=== PATIENT | male | born 1950 | race Caucasian/White ===

== ENCOUNTER 2024-02-02 09:02 | Outpatient (RCR) | payer MEDICARE, BC, SELFPAY ==
[2024-01-23 08:25] VITALS: BP 133/67
[2024-01-23 09:21] LABS: ALT (SGPT) 31 U/L (0-50); AST (SGOT) 25 U/L (17-59); Albumin 3.7 g/dl (3.5-5.0); Alkaline Phosphatase 64 U/L (38-126); Blood Urea Nitrogen 14 mg/dl (9-20); Carbon Dioxide 24 mmol/L (22-30); Chloride 105 mmol/L (98-107); Glucose 116 mg/dl (70-99); Hematocrit 24.4 % (39.0-52.0); Hemoglobin 8.2 g/dL (13.0-18.0); Mean Corp Hgb Conc. 33.6 g/dL (33.0-37.0); Mean Corpuscular Hgb 29.8 pg (27.0-31.0); Mean Corpuscular Volume 88.7 fL (80.0-94.0); Potassium 3.9 mmol/L (3.5-5.1); Red Blood Cell Count 2.75 10^6/uL (4.70-6.10); Sodium 143 mmol/L (135-145); Total Bilirubin 0.7 mg/dl (0.2-1.3); eGFR > 60.00
[2024-01-23 09:23] LABS: Band Neutrophils 2 % (0-3); Lymphocytes 32 % (20-51); Metamyelocytes 2 % (-); Platelets Checked Yes; Segmented Neutrophils 64 % (42-75)
[2024-01-23 09:24] LABS: Anisocytosis 1+; Hypochromasia 1+; Normal RBC Morphology No; Ovalocytes 1+; Polychromasia 1+; Total Cells Counted 100
[2024-01-23 09:27] LABS: Absolute Neutrophils -Man Diff 0.9 10^3/uL (1.4-6.5); Platelet Count 25 10^3/uL (130-400); White Blood Cell Count 1.4 10^3/uL (4.8-10.8)
[2024-01-23] MEDS: DECADRON 50.8 MG IV (10:52)
[2024-01-23] MEDS: ALOXI 5 MG IV (10:53)
[2024-01-23] MEDS: VIDAZA 100 MG IV (11:34)
[2024-01-23 12:15] VITALS: BP 123/74
[2024-01-24 09:15] VITALS: BP 138/61
[2024-01-24] MEDS: VIDAZA 100 MG IV (09:51)
[2024-01-25 09:05] VITALS: BP 120/53
[2024-01-25] MEDS: VIDAZA 100 MG IV (09:34)
[2024-01-26 09:05] VITALS: BP 127/53
[2024-01-26] MEDS: VIDAZA 100 MG IV (09:36)
[2024-01-27] MEDS: VIDAZA 100 MG IV (09:32)
[2024-01-27 10:02] VITALS: BP 135/67
[2024-01-30] VITALS (9 sets, daily range): BP systolic 110–137; BP diastolic 48–71
--- NOTE | 2024-01-30 09:20 | PTCARENOTE ---
pt's vs on arrival at approximately 0910 were: 97.4, 88, 18, 120/56, at 0920 pt c/o dizziness and was placed in a reclined position. Vs were: 103/53, hr 81, rr 16, pox 100% on RA. Pt stating 'I feel a little better, but I don't feel like I could
run a marathon.' CBC drawn, awaiting lab results and Eri COLD WORKING SUPERVISOR in to see patient at present time, will await lab results. Call woods in place, pt instructed not to get up by himself.
[2024-01-30 09:59] LABS: Hematocrit 22.5 % (39.0-52.0); Hemoglobin 7.5 g/dL (13.0-18.0); Mean Corp Hgb Conc. 33.3 g/dL (33.0-37.0); Mean Corpuscular Hgb 29.9 pg (27.0-31.0); Mean Corpuscular Volume 89.6 fL (80.0-94.0); Red Blood Cell Count 2.51 10^6/uL (4.70-6.10); Red Cell Dist. Width 16.5 % (11.5-14.5)
[2024-01-30 10:28] LABS: % Lymphocytes 22.8 % (20.5-51.1); % Monocytes 6.9 % (1.7-9.3); % Neutrophils 69.3 % (42.2-75.2); Absolute Lymphocytes 0.2 10^3/uL (1.2-3.4); Absolute Monocytes 0.1 10^3/uL (0.1-0.6); Absolute Neutrophils 0.7 10^3/uL (1.4-6.5); Mean Platelet Volume 11.8 fL (7.4-10.4); Platelet Count 21 10^3/uL (130-400)
[2024-01-30] MEDS: VIDAZA 100 MG IV (10:55)
--- NOTE | 2024-01-30 11:40 | PTCARENOTE ---
pt offers no further complaints of dizziness at present, able to ambulate to bathroom with walker without difficulty. vs: 97.4, 59, 16, 119/57. 2 units prbc's ordered for today, pt updated on plan of care, agreeable, consent obtained by Patricia
ENTERTAINMENT DIRECTOR, will follow.
--- NOTE | 2024-01-30 11:55 | PTCARENOTE ---
Saw patient today in [facility] at the request of NAVYA Henriquez. Patient here for vidaza treatment for MDS. On arrival reports dizziness and worsening fatigue. Hgb 7.5 today. Hypotensive. Had stopped midodrine due to reports of HTN. Only taking
daily. Assessment discussed with treatment oncology provider and decided to transfuse 2u PRBC. I obtained consent. Patient has had previous transfusions. No questions asked. Advised to continue to monitor BP. Concerns over hypotension
discussed. Educated to change positions slowly given hypotension. Will remain available as needed. Patient was in agreement to the above.
[2024-01-31 09:15] VITALS: BP 134/55; BP 137/71
[2024-01-31] MEDS: VIDAZA 100 MG IV (09:36)
[2024-02-02 10:11] LABS: Hematocrit 29.3 % (39.0-52.0); Hemoglobin 9.7 g/dL (13.0-18.0); Mean Corp Hgb Conc. 33.1 g/dL (33.0-37.0); Mean Corpuscular Hgb 29.8 pg (27.0-31.0); Mean Corpuscular Volume 89.9 fL (80.0-94.0); Red Blood Cell Count 3.26 10^6/uL (4.70-6.10); Red Cell Dist. Width 16.4 % (11.5-14.5)
[2024-02-02 10:13] LABS: ALT (SGPT) 28 U/L (0-50); AST (SGOT) 23 U/L (17-59); Alkaline Phosphatase 87 U/L (38-126); Blood Urea Nitrogen 22 mg/dl (9-20); Calcium 9.1 mg/dl (8.4-10.2); Carbon Dioxide 29 mmol/L (22-30); Chloride 102 mmol/L (98-107); Glucose 106 mg/dl (70-99); Potassium 4.2 mmol/L (3.5-5.1); Sodium 142 mmol/L (135-145); Total Bilirubin 0.7 mg/dl (0.2-1.3); eGFR > 60.00
[2024-02-02 11:12] LABS: Platelet Count 20 10^3/uL (130-400); White Blood Cell Count 0.7 10^3/uL (4.8-10.8)
[2024-02-02 11:15] LABS: Absolute Neutrophils 0.4 10^3/uL (1.4-6.5)
[2024-02-02 11:16] LABS: % Lymphocytes 36.8 % (20.5-51.1); % Monocytes 10.3 % (1.7-9.3); % Neutrophils 52.9 % (42.2-75.2); Absolute Lymphocytes 0.3 10^3/uL (1.2-3.4); Absolute Monocytes 0.1 10^3/uL (0.1-0.6); Nucleated Red Blood Cells % 0 % (-)
== END 2024-02-11 23:59 | disposition home or self-care (01) ==
LOC: OID 09:02
PROVIDERS: ATTENDING PHYSICIAN Internal Medicine Hematology & Oncology; FAMILY PHYSICIAN Family Medicine
DX: Z51.11 Encounter for antineoplastic chemotherapy (principal); C92.00 Acute myeloblastic leukemia, not having achieved remission
CPT/HCPCS: 36415; 36430; 80053; 85025; 86850; 86900; 86901; 86920; 96367; 96375; 96413; J2469; J9025; P9058

== ENCOUNTER 2024-02-04 22:51 | Emergency (ER) | payer MEDICARE, BC, SELFPAY ==
[2024-02-04 22:57] VITALS: BP 155/91
[2024-02-04 23:00] VITALS: BP 142/79
--- NOTE | 2024-02-04 23:12 | ED.GENMED ---
History of Present Illness
General
Chief Complaint: Fainting Sensation
Source: patient
Exam Limitations: none
Time Seen by Provider: 02/04/24 23:02
History of Present Illness
History of Present Illness:
See MDM
Past History
Past History
ED Past Medical History: Hypercholesterolemia and Other (MDS)
ED Past Surgical History: Other (Inguinal hernia repair)
Social History
Tobacco: Non-smoker
Alcohol: None
Phy Exam
Physical Exam
Physical Exam:
See MDM
Course
Orders/Labs/Results
Orders:
Orders
02/04/24 22:58
Electrocardiogram (*1) Urgent
Reason for Study: Syncope
02/04/24 22:59
EKG- Treatment ONCE
02/04/24 23:10
Complete Blood Count/With Diff Urgent
Comprehensive Metabolic Panel Urgent
02/04/24 23:12
0.9% Sodium Chloride 1000 ml [Nss] 1,000 ml IV BOLUS
Abnormal Lab Results
02/04/24
23:10
WBC 0.3 L* 10^3/uL
(4.8-10.8)
RBC 3.05 L 10^6/uL
(4.70-6.10)
Hgb 8.8 L g/dL
(13.0-18.0)
Hct 26.9 L %
(39.0-52.0)
MCHC 32.7 L g/dL
(33.0-37.0)
RDW 15.4 H %
(11.5-14.5)
Plt Count 17 L* 10^3/uL
(130-400)
Absolute Neuts (auto) 0.1 L* 10^3/uL
(1.4-6.5)
Absolute Lymphs (auto) 0.1 L 10^3/uL
(1.2-3.4)
Neutrophils % 34.5 L %
(42.2-75.2)
Monocytes % 17.2 H %
(1.7-9.3)
Glucose 147 H mg/dl
(70-99)
Total Protein 5.7 L g/dl
(6.3-8.2)
02/04/24 23:10
02/04/24 23:10
Vital Signs
Initial and Last Documented VS:
Initial Vital Signs
BP
155/91
02/04/24 22:57
Last Documented Vital Signs
Temp Pulse Resp BP Pulse Ox
98.1 F 99 27 153/81 99
02/04/24 23:21 02/05/24 00:15 02/05/24 00:15 02/05/24 00:00 02/05/24 00:15
MDM/Problems Addressed
Differential Diagnosis Includes:
HPI and MDM Narrative:
73-year-old male presenting with a syncopal event. Patient was on the toilet and he stood up quickly and felt lightheaded. He then sat down. When he stood up again, he passed out. Patient states he wanted to get checked out because he had a
similar episode several months back where he fell and hit his head and developed subarachnoid hemorrhage requiring admission and rehab. Patient states he wants to make sure that this does not happen again. Denies head trauma this time. Patient
has been constipated so he took MiraLAX for a few days. Things seem to improve. However, he has not had a bowel movement in the past 3 days so he started to take MiraLAX again.
On exam, patient is sitting in bed comfortably. There is no significant abdominal tenderness noted. He is unconcerned with significant constipation. He is more concerned about syncope. Patient does appear dry. Will give IV fluids.
Patient also concerned about his blood pressure. His systolic blood pressure has been increasing to the 170s. Patient was placed on midodrine 3 times daily. Patient has decreased this to twice daily due to the concern for the increasing elevated
blood pressure
Physical exam
General: Well appearing and non-toxic
HEENT: protecting airway. Dry mucous membranes
Neck: appears supple
CV: No evidence of cyanosis. Regular rate and rhythm
Resp: No accessory muscle use
Abd: Non-distended. No significant tenderness
Extremities: No deformities
Neuro: alert
Psych: Normal affect
Skin: Intact
Problems Addressed including Acute and Chronic Conditions affecting care:
1. Syncope
Acuity: acute
Prognosis: stable
Details: Likely in the setting of orthostasis from recent relaxants and diarrhea. Will obtain EKG and provide IV fluids
Updates
On reassessment after fluids, patient appears to be doing better. Will ambulate. We discussed his lab abnormalities but they are not far from baseline
Patient ambulated without difficulty and feels comfortable going home
Differential Diagnosis (but not limited to): Orthostasis, cardiac arrhythmia, dehydration, constipation
Testing considered: CT head but denies head
Drug therapy (if applicable): OTC meds, please see d/c instruction regarding Rx drugs
Amount and/or Complexity of Data Reviewed
Clinical info obtained from: Patient
External data reviewed: N/A
Labs I independently reviewed (but not limited to): Neutropenic, thrombocytopenic, anemic
Radiology: N/A
Pulse Ox: not hypoxic
EKG independently reviewed: Sinus rhythm, PACs, no STEMI
Dot Etcher Apprentice: Sinus rhythm
Critical Care: N/A
Risk of Complication:
Social Determinants of health: Good social support
Discussed with other providers: N/A
Escalation of Care includes Admit/Obs: After being observed in the Emergency Department, pt stable for discharge.
Occasional wrong word or 'sound a like' substitutions may have occurred due to the inherent limitations of voice recognition software. Read the chart carefully and recognize, using context, where substitutions have occurred.
*Critical Care Note
Total Time (30-74mins, 75-104mins- exclusive of procedures): Not Applicable
ED Attending Note
-
Portions of this chart may have been created with voice recognition software.� Occasional wrong word or��sound alike� substitutions may have occurred due to the inherent limitations of voice recognition software.
Discharge Plan
Departure
Patient Disposition: Home (Routine Discharge)
Date of Disposition: 02/05/24
Time of Disposition: 01:18
Patient with high blood pressure during this ER visit?: No
Discharge Problem:
Orthostatic hypotension
Instructions: Orthostatic hypotension
Prescriptions:
No Action
ondansetron HCl [Zofran] 8 mg Tablet
8 mg PO .Q6 PRN (Reason: nausea)
venetoclax 100 mg Tablet
400 mg PO DAILY
polyethylene glycol 3350 17 gram Powder In Packet
17 g PO DAILY PRN (Reason: constipation)
acyclovir 400 mg Tablet
400 mg PO BID
famotidine 20 mg Tablet
20 mg PO Q12H
zolpidem 5 mg Tablet
5 mg PO HS PRN (Reason: insomnia)
Neulasta 6 mg/0.6 mL Syringe
6 mg SC PRN PRN (Reason: Cancer)
Rx Instructions:
no route given
sodium chloride 0.65 % Aerosol,Burdine
1 spray INTRANASAL TID PRN (Reason: nasal congestion)
Lactobacillus acidophilus
1 cap PO DAILY
posaconazole [Noxafil] 100 mg Tablet,Delayed Release (Dr/Ec)
300 mg PO DAILY
acetaminophen 325 mg Tablet
650 mg PO Q6HPRN PRN (Reason: mild pain) 30 Days Qty: 100 0RF
cyanocobalamin (vitamin B-12) 1,000 mcg Tablet
1,000 mcg PO DAILY 30 Days Qty: 30 0RF
atorvastatin 80 mg Tablet
80 mg PO DAILY Qty: 0 0RF
sennosides-docusate sodium [Senna-S] 8.6-50 mg Tablet
1 caplet PO BID Qty: 0 0RF
allopurinol 300 mg Tablet
300 mg PO DAILY Qty: 0 0RF
levofloxacin 500 mg Tablet
500 mg PO DAILY Qty: 0 0RF
ergocalciferol (vitamin D2) 1,250 mcg (50,000 unit) capsule
1,250 mcg PO QWEEK 4 Days Qty: 1 0RF
Referrals:
Vahid Kiser MD [Family Provider] -
Activity Restrictions/Additional Instructions:
Please return for any worsening symptoms.
You may return at any time if you have further concerns.
Please follow up with your doctor at the first available appointment, preferably this week.
Thank you for choosing [facility].
Interventions
Interventions:
*Risk Screen - Suicide Last Done: 02/04/24 23:21
*General Assessment Last Done: 02/04/24 23:21
*Neglect/Abuse Screening Last Done: 02/04/24 23:21
ED- Fall Risk Assessment Last Done: 02/04/24 23:15
*ED COVID-19 Vaccine History Last Done: 02/04/24 23:21
ED- Cardiac Assessment Last Done: 02/04/24 23:15
ED- Neurological Assessment Last Done: 02/04/24 23:15
Discharge Date and Time
Print Language: LATVIAN
[2024-02-04 23:21] VITALS: BP 142/79
[2024-02-04] MEDS: NSS 1000 IV (23:29)
[2024-02-04 23:51] LABS: ALT (SGPT) 23 U/L (0-50); AST (SGOT) 23 U/L (17-59); Albumin 3.7 g/dl (3.5-5.0); Alkaline Phosphatase 65 U/L (38-126); Blood Urea Nitrogen 20 mg/dl (9-20); Calcium 8.8 mg/dl (8.4-10.2); Carbon Dioxide 28 mmol/L (22-30); Chloride 101 mmol/L (98-107); Glucose 147 mg/dl (70-99); Sodium 137 mmol/L (135-145); Total Bilirubin 1.2 mg/dl (0.2-1.3); Total Protein 5.7 g/dl (6.3-8.2); eGFR > 60.00
[2024-02-04 23:55] LABS: % Lymphocytes 48.3 % (20.5-51.1); % Monocytes 17.2 % (1.7-9.3); % Neutrophils 34.5 % (42.2-75.2); Absolute Lymphocytes 0.1 10^3/uL (1.2-3.4); Absolute Monocytes 0.1 10^3/uL (0.1-0.6); Absolute Neutrophils 0.1 10^3/uL (1.4-6.5); Hematocrit 26.9 % (39.0-52.0); Hemoglobin 8.8 g/dL (13.0-18.0); Mean Corp Hgb Conc. 32.7 g/dL (33.0-37.0); Mean Corpuscular Hgb 28.9 pg (27.0-31.0); Mean Corpuscular Volume 88.2 fL (80.0-94.0); Nucleated Red Blood Cells % 0 % (-); Platelet Count 17 10^3/uL (130-400); Red Blood Cell Count 3.05 10^6/uL (4.70-6.10); Red Cell Dist. Width 15.4 % (11.5-14.5); White Blood Cell Count 0.3 10^3/uL (4.8-10.8)
[2024-02-05] VITALS: BP 153/81
[2024-02-05 01:00] VITALS: BP 154/78
== END 2024-02-05 01:38 | disposition home or self-care (01) ==
LOC: EMR 22:51
PROVIDERS: EMERGENCY PHYSICIAN Student in an Organized Health Care Education/Training Program; FAMILY PHYSICIAN Family Medicine
DX: I95.1 Orthostatic hypotension (principal)
CPT/HCPCS: 99284; 80053; 85025; 93005

== ENCOUNTER → 2024-02-16 10:21 | Outpatient (REF) | payer MEDICARE, BC, SELFPAY ==
[2024-02-16 11:15] VITALS: BP 117/69; BP_SYST 83
[2024-02-16 12:09] LABS: Hemoglobin 8.1 g/dL (13.0-18.0); Red Blood Cell Count 2.77 10^6/uL (4.70-6.10)
[2024-02-16 12:10] LABS: Hematocrit 24.1 % (39.0-52.0); Mean Corp Hgb Conc. 33.6 g/dL (33.0-37.0); Mean Corpuscular Hgb 29.2 pg (27.0-31.0); Red Cell Dist. Width 15.3 % (11.5-14.5)
[2024-02-16 12:13] LABS: Platelet Count 18 10^3/uL (130-400); White Blood Cell Count 0.2 10^3/uL (4.8-10.8)
[2024-02-16 12:17] LABS: INR 1.07; PT 14.4 Sec (11.4-14.6)
[2024-02-16 12:43] LABS: % Lymphocytes 73.7 % (20.5-51.1); % Monocytes 5.3 % (1.7-9.3)
[2024-02-16 12:44] LABS: Absolute Lymphocytes 0.1 10^3/uL (1.2-3.4)
[2024-02-16 12:45] LABS: Nucleated Red Blood Cells % 0.03 % (-)
== END ==
LOC: RADI 10:21
PROVIDERS: ATTENDING PHYSICIAN Internal Medicine Hematology & Oncology; FAMILY PHYSICIAN Family Medicine; REFERRING PHYSICIAN Physician Assistant
DX: C92.00 Acute myeloblastic leukemia, not having achieved remission (principal); D61.818 Other pancytopenia; D68.8 Other specified coagulation defects
CPT/HCPCS: 88305; 88311; 88312; 36415; 38222; 77012; 85025; 85610; 88313

== ENCOUNTER → 2024-02-21 13:37 | Outpatient (REF) | payer MEDICARE, BC, SELFPAY | LOC: HWLAB 13:37 | PROVIDERS: ATTENDING PHYSICIAN Internal Medicine Hematology & Oncology; FAMILY PHYSICIAN Family Medicine | DX: C92.00 Acute myeloblastic leukemia, not having achieved remission (principal) | CPT/HCPCS: 36415; 80053; 85025; 86850; 86900; 86901; 86920 ==

== ENCOUNTER → 2024-02-28 12:51 | Outpatient (REF) | payer MEDICARE, BC, SELFPAY ==
[2024-02-28 16:40] LABS: ALT (SGPT) 15 U/L (0-50); AST (SGOT) 19 U/L (17-59); Albumin 3.6 g/dl (3.5-5.0); Alkaline Phosphatase 57 U/L (38-126); Blood Urea Nitrogen 24 mg/dl (9-20); Calcium 8.8 mg/dl (8.4-10.2); Carbon Dioxide 29 mmol/L (22-30); Chloride 104 mmol/L (98-107); Glucose 95 mg/dl (70-99); Potassium 4.5 mmol/L (3.5-5.1); Sodium 138 mmol/L (135-145); Total Bilirubin 0.6 mg/dl (0.2-1.3); Total Protein 5.6 g/dl (6.3-8.2); eGFR > 60.00
[2024-02-28 17:00] LABS: % Lymphocytes 45.1 % (20.5-51.1); % Monocytes 13.7 % (1.7-9.3); % Neutrophils 41.2 % (42.2-75.2); Absolute Lymphocytes 0.2 10^3/uL (1.2-3.4); Absolute Monocytes 0.1 10^3/uL (0.1-0.6); Absolute Neutrophils 0.2 10^3/uL (1.4-6.5); Hematocrit 25.6 % (39.0-52.0); Hemoglobin 8.5 g/dL (13.0-18.0); Mean Corp Hgb Conc. 33.2 g/dL (33.0-37.0); Mean Corpuscular Hgb 29.3 pg (27.0-31.0); Mean Corpuscular Volume 88.3 fL (80.0-94.0); Nucleated Red Blood Cells % 5.9 % (-); Platelet Count 18 10^3/uL (130-400); Red Cell Dist. Width 14.6 % (11.5-14.5); White Blood Cell Count 0.5 10^3/uL (4.8-10.8)
== END ==
LOC: HWLAB 12:51
PROVIDERS: ATTENDING PHYSICIAN Internal Medicine Hematology & Oncology
DX: C92.00 Acute myeloblastic leukemia, not having achieved remission (principal)
CPT/HCPCS: 36415; 80053; 85025; 86850; 86900; 86901

== ENCOUNTER 2024-03-06 07:44 | Outpatient (RCR) | payer MEDICARE, BC, SELFPAY ==
[2024-02-13 10:36] LABS: % Lymphocytes 47.1 % (20.5-51.1); % Monocytes 5.9 % (1.7-9.3); Absolute Lymphocytes 0.2 10^3/uL (1.2-3.4); Absolute Neutrophils 0.2 10^3/uL (1.4-6.5); Hematocrit 20.8 % (39.0-52.0); Hemoglobin 6.9 g/dL (13.0-18.0); Mean Corp Hgb Conc. 33.2 g/dL (33.0-37.0); Mean Corpuscular Hgb 29.6 pg (27.0-31.0); Mean Corpuscular Volume 89.3 fL (80.0-94.0); Mean Platelet Volume 8.7 fL (7.4-10.4); Nucleated Red Blood Cells % 8.8 % (-); Platelet Count 20 10^3/uL (130-400); Red Blood Cell Count 2.33 10^6/uL (4.70-6.10); Red Cell Dist. Width 15.3 % (11.5-14.5); White Blood Cell Count 0.3 10^3/uL (4.8-10.8)
[2024-02-14] VITALS (7 sets, daily range): BP systolic 96–120; BP diastolic 41–53
[2024-02-21 16:45] LABS: ALT (SGPT) 14 U/L (0-50); AST (SGOT) 18 U/L (17-59); Albumin 3.5 g/dl (3.5-5.0); Alkaline Phosphatase 84 U/L (38-126); Blood Urea Nitrogen 19 mg/dl (9-20); Calcium 8.7 mg/dl (8.4-10.2); Carbon Dioxide 29 mmol/L (22-30); Chloride 105 mmol/L (98-107); Glucose 109 mg/dl (70-99); Sodium 140 mmol/L (135-145); Total Bilirubin 0.5 mg/dl (0.2-1.3); Total Protein 5.4 g/dl (6.3-8.2); eGFR > 60.00
[2024-02-21 17:10] LABS: Hemoglobin 7.1 g/dL (13.0-18.0); Mean Corp Hgb Conc. 32.3 g/dL (33.0-37.0); Mean Corpuscular Hgb 29.2 pg (27.0-31.0); Mean Corpuscular Volume 90.5 fL (80.0-94.0); Platelet Count 23 10^3/uL (130-400); Red Blood Cell Count 2.43 10^6/uL (4.70-6.10); Red Cell Dist. Width 15.2 % (11.5-14.5); White Blood Cell Count 0.2 10^3/uL (4.8-10.8)
[2024-02-21 18:07] LABS: % Lymphocytes 68.2 % (20.5-51.1); % Monocytes 9.1 % (1.7-9.3); % Neutrophils 22.7 % (42.2-75.2); Absolute Lymphocytes 0.2 10^3/uL (1.2-3.4); Absolute Neutrophils 0.1 10^3/uL (1.4-6.5); Nucleated Red Blood Cells % 13.6 % (-)
[2024-02-23] VITALS (8 sets, daily range): BP systolic 102–118; BP diastolic 51–56
[2024-03-02 13:15] VITALS: BP 135/59
[2024-03-02 14:27] LABS: % Monocytes 13.3 % (1.7-9.3); % Neutrophils 41.7 % (42.2-75.2); Absolute Lymphocytes 0.3 10^3/uL (1.2-3.4); Absolute Monocytes 0.1 10^3/uL (0.1-0.6); Absolute Neutrophils 0.3 10^3/uL (1.4-6.5); Hematocrit 23.3 % (39.0-52.0); Hemoglobin 7.7 g/dL (13.0-18.0); Mean Corpuscular Hgb 28.4 pg (27.0-31.0); Nucleated Red Blood Cells % 0 % (-); Platelet Count 16 10^3/uL (130-400); Red Blood Cell Count 2.71 10^6/uL (4.70-6.10); Red Cell Dist. Width 14.7 % (11.5-14.5); White Blood Cell Count 0.6 10^3/uL (4.8-10.8)
[2024-03-02] MEDS: GRANIX 480 MCG SC (14:46)
[2024-03-05 13:00] VITALS: BP 120/62
[2024-03-05 14:26] LABS: % Immature Granulocytes 1.3 % (0-0.5); % Lymphocytes 30.7 % (20.5-51.1); % Monocytes 13.3 % (1.7-9.3); % Neutrophils 54.7 % (42.2-75.2); Absolute Lymphocytes 0.2 10^3/uL (1.2-3.4); Absolute Monocytes 0.1 10^3/uL (0.1-0.6); Absolute Neutrophils 0.4 10^3/uL (1.4-6.5); Hematocrit 21.1 % (39.0-52.0); Hemoglobin 7.3 g/dL (13.0-18.0); Mean Corp Hgb Conc. 34.6 g/dL (33.0-37.0); Mean Corpuscular Hgb 29.8 pg (27.0-31.0); Mean Corpuscular Volume 86.1 fL (80.0-94.0); Nucleated Red Blood Cells % 0 % (-); Platelet Count 15 10^3/uL (130-400); Red Blood Cell Count 2.45 10^6/uL (4.70-6.10); Red Cell Dist. Width 14.9 % (11.5-14.5); White Blood Cell Count 0.8 10^3/uL (4.8-10.8)
[2024-03-05] MEDS: GRANIX 480 MCG SC (14:50)
[2024-03-06] VITALS (7 sets, daily range): BP systolic 105–127; BP diastolic 50–53
[2024-03-06 08:57] LABS: Hematocrit 18.5 % (39.0-52.0); Hemoglobin 6.5 g/dL (13.0-18.0); Mean Corp Hgb Conc. 35.1 g/dL (33.0-37.0); Mean Corpuscular Hgb 30.1 pg (27.0-31.0); Mean Corpuscular Volume 85.6 fL (80.0-94.0); Platelet Count 14 10^3/uL (130-400); Red Blood Cell Count 2.16 10^6/uL (4.70-6.10); White Blood Cell Count 0.9 10^3/uL (4.8-10.8)
[2024-03-06 10:38] LABS: % Immature Granulocytes 3.2 % (0-0.5); % Lymphocytes 20.2 % (20.5-51.1); % Monocytes 11.7 % (1.7-9.3); % Neutrophils 64.9 % (42.2-75.2); Absolute Lymphocytes 0.2 10^3/uL (1.2-3.4); Absolute Monocytes 0.1 10^3/uL (0.1-0.6); Absolute Neutrophils 0.6 10^3/uL (1.4-6.5); Nucleated Red Blood Cells % 2.1 % (-)
[2024-03-06] MEDS: GRANIX 480 MCG SC (11:04)
== END 2024-03-13 23:59 | disposition home or self-care (01) ==
LOC: OID 07:44
PROVIDERS: ATTENDING PHYSICIAN Internal Medicine Hematology & Oncology; FAMILY PHYSICIAN Family Medicine
DX: C92.00 Acute myeloblastic leukemia, not having achieved remission (principal); Z51.11 Encounter for antineoplastic chemotherapy
CPT/HCPCS: 36415; 36430; 80053; 85025; 86850; 86900; 86901; 86920; 96372; J1447; P9058

== ENCOUNTER → 2024-03-08 13:16 | Outpatient (REF) | payer MEDICARE, BC, SELFPAY ==
[2024-03-08 17:21] LABS: ALT (SGPT) 18 U/L (0-50); AST (SGOT) 20 U/L (17-59); Albumin 3.5 g/dl (3.5-5.0); Alkaline Phosphatase 80 U/L (38-126); Blood Urea Nitrogen 15 mg/dl (9-20); Calcium 8.9 mg/dl (8.4-10.2); Carbon Dioxide 31 mmol/L (22-30); Chloride 104 mmol/L (98-107); Glucose 97 mg/dl (70-99); Potassium 4.4 mmol/L (3.5-5.1); Sodium 138 mmol/L (135-145); Total Bilirubin 0.6 mg/dl (0.2-1.3); Total Protein 5.3 g/dl (6.3-8.2); eGFR > 60.00
[2024-03-08 19:58] LABS: % Basophils 1.2 % (0-2); % Immature Granulocytes 0.6 % (0-0.5); % Lymphocytes 19.8 % (20.5-51.1); % Monocytes 10.8 % (1.7-9.3); % Neutrophils 67.6 % (42.2-75.2); Absolute Lymphocytes 0.3 10^3/uL (1.2-3.4); Absolute Monocytes 0.2 10^3/uL (0.1-0.6); Absolute Neutrophils 1.1 10^3/uL (1.4-6.5); Hematocrit 25.6 % (39.0-52.0); Hemoglobin 8.4 g/dL (13.0-18.0); Mean Corp Hgb Conc. 32.8 g/dL (33.0-37.0); Mean Corpuscular Hgb 29.4 pg (27.0-31.0); Mean Corpuscular Volume 89.5 fL (80.0-94.0); Nucleated Red Blood Cells % 0 % (-); Platelet Count 13 10^3/uL (130-400); Red Blood Cell Count 2.86 10^6/uL (4.70-6.10); Red Cell Dist. Width 15.2 % (11.5-14.5); White Blood Cell Count 1.7 10^3/uL (4.8-10.8)
== END ==
LOC: HWLAB 13:16
PROVIDERS: ATTENDING PHYSICIAN Internal Medicine Hematology & Oncology; FAMILY PHYSICIAN Family Medicine
DX: C92.00 Acute myeloblastic leukemia, not having achieved remission (principal)
CPT/HCPCS: 36415; 80053; 85025; 86850; 86900; 86901

== ENCOUNTER → 2024-03-12 12:40 | Outpatient (REF) | payer MEDICARE, BC, SELFPAY ==
[2024-03-12 16:24] LABS: ALT (SGPT) 22 U/L (0-50); AST (SGOT) 22 U/L (17-59); Albumin 3.5 g/dl (3.5-5.0); Alkaline Phosphatase 55 U/L (38-126); Blood Urea Nitrogen 20 mg/dl (9-20); Calcium 8.7 mg/dl (8.4-10.2); Carbon Dioxide 27 mmol/L (22-30); Chloride 102 mmol/L (98-107); Glucose 130 mg/dl (70-99); Potassium 3.8 mmol/L (3.5-5.1); Sodium 137 mmol/L (135-145); Total Bilirubin 0.5 mg/dl (0.2-1.3); Total Protein 5.5 g/dl (6.3-8.2); eGFR > 60.00
[2024-03-12 17:14] LABS: % Immature Granulocytes 1.3 % (0-0.5); % Lymphocytes 7.9 % (20.5-51.1); % Monocytes 10.5 % (1.7-9.3); % Neutrophils 80.3 % (42.2-75.2); Absolute Lymphocytes 0.1 10^3/uL (1.2-3.4); Absolute Monocytes 0.1 10^3/uL (0.1-0.6); Absolute Neutrophils 0.6 10^3/uL (1.4-6.5); Hematocrit 23.7 % (39.0-52.0); Hemoglobin 7.8 g/dL (13.0-18.0); Mean Corp Hgb Conc. 32.9 g/dL (33.0-37.0); Mean Corpuscular Hgb 29.4 pg (27.0-31.0); Mean Corpuscular Volume 89.4 fL (80.0-94.0); Nucleated Red Blood Cells % 2.6 % (-); Platelet Count 12 10^3/uL (130-400); Red Blood Cell Count 2.65 10^6/uL (4.70-6.10); Red Cell Dist. Width 15.5 % (11.5-14.5); White Blood Cell Count 0.8 10^3/uL (4.8-10.8)
== END ==
LOC: HWLAB 12:40
PROVIDERS: ATTENDING PHYSICIAN Internal Medicine Hematology & Oncology; FAMILY PHYSICIAN Family Medicine
DX: C92.00 Acute myeloblastic leukemia, not having achieved remission (principal)
CPT/HCPCS: 36415; 80053; 85025; 86850; 86900; 86901

== ENCOUNTER → 2024-03-19 11:51 | Outpatient (REF) | payer MEDICARE, BC, SELFPAY | LOC: REG 11:51 | PROVIDERS: ATTENDING PHYSICIAN Internal Medicine Hematology & Oncology; FAMILY PHYSICIAN Family Medicine | DX: C92.00 Acute myeloblastic leukemia, not having achieved remission (principal) | CPT/HCPCS: 36415 ==

== ENCOUNTER → 2024-03-26 11:06 | Outpatient (REF) | payer MEDICARE, BC, SELFPAY ==
[2024-03-26 11:59] LABS: Hematocrit 23.8 % (39.0-52.0); Hemoglobin 7.9 g/dL (13.0-18.0); Mean Corp Hgb Conc. 33.2 g/dL (33.0-37.0); Mean Corpuscular Hgb 30.2 pg (27.0-31.0); Mean Corpuscular Volume 90.8 fL (80.0-94.0); Red Blood Cell Count 2.62 10^6/uL (4.70-6.10); Red Cell Dist. Width 15.9 % (11.5-14.5)
[2024-03-26 12:19] LABS: ALT (SGPT) 16 U/L (0-50); AST (SGOT) 19 U/L (17-59); Albumin 3.5 g/dl (3.5-5.0); Alkaline Phosphatase 70 U/L (38-126); Blood Urea Nitrogen 19 mg/dl (9-20); Calcium 8.4 mg/dl (8.4-10.2); Carbon Dioxide 31 mmol/L (22-30); Chloride 104 mmol/L (98-107); Glucose 92 mg/dl (70-99); Potassium 4.7 mmol/L (3.5-5.1); Sodium 140 mmol/L (135-145); Total Bilirubin 0.5 mg/dl (0.2-1.3); Total Protein 5.4 g/dl (6.3-8.2); eGFR > 60.00
[2024-03-26 13:02] LABS: % Eosinophils 1.1 % (0-6); % Immature Granulocytes 1.1 % (0-0.5); % Lymphocytes 38.6 % (20.5-51.1); % Monocytes 13.6 % (1.7-9.3); % Neutrophils 45.6 % (42.2-75.2); Absolute Lymphocytes 0.3 10^3/uL (1.2-3.4); Absolute Monocytes 0.1 10^3/uL (0.1-0.6); Absolute Neutrophils 0.4 10^3/uL (1.4-6.5); Mean Platelet Volume 13.7 fL (7.4-10.4); Nucleated Red Blood Cells % 0 % (-); Platelet Count 16 10^3/uL (130-400); White Blood Cell Count 0.9 10^3/uL (4.8-10.8)
== END ==
LOC: REG 11:06
PROVIDERS: ATTENDING PHYSICIAN Internal Medicine Hematology & Oncology; FAMILY PHYSICIAN Family Medicine
DX: C92.00 Acute myeloblastic leukemia, not having achieved remission (principal)
CPT/HCPCS: 36415; 80053; 85025; 86850; 86900; 86901

== ENCOUNTER → 2024-04-02 11:28 | Outpatient (REF) | payer MEDICARE, BC, SELFPAY | LOC: REG 11:28 | PROVIDERS: ATTENDING PHYSICIAN Internal Medicine Hematology & Oncology | DX: C92.00 Acute myeloblastic leukemia, not having achieved remission (principal) | CPT/HCPCS: 36415; 80053; 85025; 86850; 86900; 86901; 86920 ==

== ENCOUNTER 2024-04-03 08:33 | Outpatient (RCR) | payer MEDICARE, BC, SELFPAY ==
[2024-03-19 13:04] LABS: Hematocrit 20.3 % (39.0-52.0); Hemoglobin 6.6 g/dL (13.0-18.0); Mean Corp Hgb Conc. 32.5 g/dL (33.0-37.0); Mean Corpuscular Hgb 28.8 pg (27.0-31.0); Mean Corpuscular Volume 88.6 fL (80.0-94.0); Mean Platelet Volume 11.9 fL (7.4-10.4); Platelet Count 16 10^3/uL (130-400); Red Blood Cell Count 2.29 10^6/uL (4.70-6.10); Red Cell Dist. Width 15.4 % (11.5-14.5); White Blood Cell Count 0.9 10^3/uL (4.8-10.8)
[2024-03-19 13:28] LABS: ALT (SGPT) 23 U/L (0-50); AST (SGOT) 20 U/L (17-59); Albumin 3.5 g/dl (3.5-5.0); Alkaline Phosphatase 74 U/L (38-126); Blood Urea Nitrogen 18 mg/dl (9-20); Calcium 8.8 mg/dl (8.4-10.2); Carbon Dioxide 28 mmol/L (22-30); Chloride 106 mmol/L (98-107); Glucose 79 mg/dl (70-99); Potassium 4.6 mmol/L (3.5-5.1); Sodium 140 mmol/L (135-145); Total Bilirubin 0.5 mg/dl (0.2-1.3); Total Protein 5.4 g/dl (6.3-8.2); eGFR > 60.00
[2024-03-19 14:52] LABS: % Eosinophils 1.1 % (0-6); % Immature Granulocytes 1.1 % (0-0.5); % Lymphocytes 38.5 % (20.5-51.1); % Monocytes 9.9 % (1.7-9.3); % Neutrophils 49.4 % (42.2-75.2); Absolute Lymphocytes 0.4 10^3/uL (1.2-3.4); Absolute Monocytes 0.1 10^3/uL (0.1-0.6); Absolute Neutrophils 0.5 10^3/uL (1.4-6.5); Nucleated Red Blood Cells % 3.3 % (-)
[2024-03-20] VITALS (7 sets, daily range): BP systolic 97–139; BP diastolic 56–73
[2024-04-02 12:24] LABS: ALT (SGPT) 19 U/L (0-50); AST (SGOT) 20 U/L (17-59); Albumin 3.7 g/dl (3.5-5.0); Alkaline Phosphatase 91 U/L (38-126); Blood Urea Nitrogen 18 mg/dl (9-20); Calcium 8.9 mg/dl (8.4-10.2); Carbon Dioxide 29 mmol/L (22-30); Chloride 104 mmol/L (98-107); Glucose 100 mg/dl (70-99); Potassium 4.4 mmol/L (3.5-5.1); Sodium 138 mmol/L (135-145); Total Bilirubin 0.5 mg/dl (0.2-1.3); Total Protein 5.6 g/dl (6.3-8.2); eGFR > 60.00
[2024-04-02 12:35] LABS: Band Neutrophils 0 % (0-3); Hematocrit 20.4 % (39.0-52.0); Hemoglobin 6.9 g/dL (13.0-18.0); Mean Corp Hgb Conc. 33.8 g/dL (33.0-37.0); Mean Corpuscular Hgb 30.3 pg (27.0-31.0); Mean Corpuscular Volume 89.5 fL (80.0-94.0); Mean Platelet Volume 12.1 fL (7.4-10.4); Platelet Count 14 10^3/uL (130-400); Red Blood Cell Count 2.28 10^6/uL (4.70-6.10); Red Cell Dist. Width 15.8 % (11.5-14.5); Segmented Neutrophils 56 % (42-75)
[2024-04-02 12:36] LABS: Absolute Neutrophils -Man Diff 0.5 10^3/uL (1.4-6.5); Anisocytosis 1+; Hypochromasia 1+; Lymphocytes 44 % (20-51); Normal RBC Morphology No; Nucleated Red Blood Cells 4 (-); Platelets Checked Yes; Polychromasia 1+; Total Cells Counted 100
[2024-04-03 08:45] VITALS: BP 117/56
[2024-04-03 09:32] VITALS: BP 116/53
[2024-04-03 11:15] VITALS: BP 121/57
[2024-04-03 11:32] VITALS: BP 121/59
[2024-04-03 12:50] VITALS: BP 128/59
[2024-04-03 13:50] VITALS: BP 145/76
== END 2024-04-13 23:59 | disposition home or self-care (01) ==
LOC: OID 08:33
PROVIDERS: ATTENDING PHYSICIAN Internal Medicine Hematology & Oncology; FAMILY PHYSICIAN Family Medicine
DX: C92.00 Acute myeloblastic leukemia, not having achieved remission (principal); C90.00 Multiple myeloma not having achieved remission (principal); Z51.11 Encounter for antineoplastic chemotherapy
CPT/HCPCS: 36415; 36430; 80053; 85025; 86850; 86900; 86901; 86920; P9058

== ENCOUNTER → 2024-04-09 11:51 | Outpatient (REF) | payer MEDICARE, BC, SELFPAY ==
[2024-04-09 13:14] LABS: Hematocrit 24.1 % (39.0-52.0); Hemoglobin 7.9 g/dL (13.0-18.0); Mean Corp Hgb Conc. 32.8 g/dL (33.0-37.0); Mean Corpuscular Hgb 28.3 pg (27.0-31.0); Mean Corpuscular Volume 86.4 fL (80.0-94.0); Red Blood Cell Count 2.79 10^6/uL (4.70-6.10); Red Cell Dist. Width 15.9 % (11.5-14.5)
[2024-04-09 13:38] LABS: ALT (SGPT) 21 U/L (0-50); AST (SGOT) 21 U/L (17-59); Albumin 3.6 g/dl (3.5-5.0); Alkaline Phosphatase 70 U/L (38-126); Blood Urea Nitrogen 20 mg/dl (9-20); Calcium 8.9 mg/dl (8.4-10.2); Carbon Dioxide 29 mmol/L (22-30); Chloride 103 mmol/L (98-107); Glucose 91 mg/dl (70-99); Potassium 4.7 mmol/L (3.5-5.1); Sodium 138 mmol/L (135-145); Total Bilirubin 0.6 mg/dl (0.2-1.3); Total Protein 5.7 g/dl (6.3-8.2); eGFR > 60.00
[2024-04-09 13:53] LABS: Absolute Neutrophils -Man Diff 0.3 10^3/uL (1.4-6.5); Band Neutrophils 4 % (0-3); Lymphocytes 60 % (20-51); Platelet Count 12 10^3/uL (130-400); Platelets Checked Yes; Segmented Neutrophils 36 % (42-75); White Blood Cell Count 0.9 10^3/uL (4.8-10.8)
[2024-04-09 13:54] LABS: Anisocytosis 1+; Normal RBC Morphology No; Ovalocytes 1+; Polychromasia 1+
[2024-04-09 13:55] LABS: Total Cells Counted 100
== END ==
LOC: REG 11:51
PROVIDERS: ATTENDING PHYSICIAN Internal Medicine Hematology & Oncology; FAMILY PHYSICIAN Family Medicine
DX: C92.00 Acute myeloblastic leukemia, not having achieved remission (principal)
CPT/HCPCS: 36415; 80053; 85025; 86850; 86900; 86901

== ENCOUNTER → 2024-04-13 07:02 | Outpatient (REF) | payer MEDICARE, BC, SELFPAY ==
[2024-04-13 07:35] VITALS: BP 119/72; BP_SYST 67
[2024-04-13 07:43] LABS: INR 1.04; PT 14.1 Sec (11.4-14.6)
[2024-04-13 07:45] LABS: Hematocrit 21.6 % (39.0-52.0); Hemoglobin 7.1 g/dL (13.0-18.0); Mean Corp Hgb Conc. 32.9 g/dL (33.0-37.0); Mean Corpuscular Hgb 28.7 pg (27.0-31.0); Mean Corpuscular Volume 87.4 fL (80.0-94.0); Mean Platelet Volume 9.6 fL (7.4-10.4); Platelet Count 13 10^3/uL (130-400); Red Blood Cell Count 2.47 10^6/uL (4.70-6.10); White Blood Cell Count 0.8 10^3/uL (4.8-10.8)
[2024-04-13] MEDS: ATIVAN 0.5 MG IV (08:30)
[2024-04-13 08:32] LABS: Atypical Lymphocytes 7 %; Band Neutrophils 2 % (0-3); Eosinophils 3 % (0-6); Lymphocytes 47 % (20-51); Metamyelocytes 2 % (-); Monocytes 3 % (2-9); Platelets Checked Yes; Segmented Neutrophils 36 % (42-75)
[2024-04-13 08:33] LABS: Anisocytosis 1+; Hypochromasia 1+; Normal RBC Morphology No; Polychromasia 1+; Total Cells Counted 100
[2024-04-13 08:34] LABS: Absolute Neutrophils -Man Diff 0.3 10^3/uL (1.4-6.5)
[2024-04-13 09:21] VITALS: BP 122/75
[2024-04-13] MEDS: NSS (PRESERVATIVE FREE) 0.25 ML IV (09:30)
== END ==
LOC: RADI 07:02
PROVIDERS: ATTENDING PHYSICIAN Physician Assistant; FAMILY PHYSICIAN Family Medicine; REFERRING PHYSICIAN Internal Medicine Hematology & Oncology
DX: C92.00 Acute myeloblastic leukemia, not having achieved remission (principal); D46.9 Myelodysplastic syndrome, unspecified; D68.8 Other specified coagulation defects; D61.810 Antineoplastic chemotherapy induced pancytopenia; T45.1X5A Adverse effect of antineoplastic and immunosuppressive drugs, initial encounter
CPT/HCPCS: 88305; 88311; 88312; 36415; 38222; 77012; 85025; 85610; 88313

== ENCOUNTER → 2024-04-16 13:06 | Outpatient (REF) | payer MEDICARE, BC, SELFPAY | LOC: REG 13:06 | PROVIDERS: ATTENDING PHYSICIAN Internal Medicine Hematology & Oncology; FAMILY PHYSICIAN Family Medicine | DX: C92.00 Acute myeloblastic leukemia, not having achieved remission (principal) | CPT/HCPCS: 36415; 80053; 85025; 86850; 86900; 86901; 86920 ==

== ENCOUNTER → 2024-04-30 09:20 | Outpatient (REF) | payer MEDICARE, BC, SELFPAY ==
[2024-04-30 11:12] LABS: Hematocrit 27.4 % (39.0-52.0); Hemoglobin 9.2 g/dL (13.0-18.0); Mean Corp Hgb Conc. 33.6 g/dL (33.0-37.0); Mean Corpuscular Hgb 28.6 pg (27.0-31.0); Mean Corpuscular Volume 85.1 fL (80.0-94.0); Red Blood Cell Count 3.22 10^6/uL (4.70-6.10); Red Cell Dist. Width 14.9 % (11.5-14.5)
[2024-04-30 11:34] LABS: ALT (SGPT) 19 U/L (0-50); AST (SGOT) 17 U/L (17-59); Alkaline Phosphatase 71 U/L (38-126); Blood Urea Nitrogen 22 mg/dl (9-20); Calcium 8.9 mg/dl (8.4-10.2); Carbon Dioxide 28 mmol/L (22-30); Chloride 102 mmol/L (98-107); Glucose 106 mg/dl (70-99); HDL Cholesterol 39 mg/dl; LDL Cholesterol, Calculated 34 mg/dl; Sodium 139 mmol/L (135-145); Total Bilirubin 1.5 mg/dl (0.2-1.3); Total Cholesterol 103 mg/dl (50-199); Total Protein 5.9 g/dl (6.3-8.2); Triglyceride 154 mg/dl (10-149); Very Low Density Lipoprotein 30 mg/dl (0-30); eGFR > 60.00
[2024-04-30 11:41] LABS: Absolute Neutrophils -Man Diff 0.1 10^3/uL (1.4-6.5); Anisocytosis Slight; Band Neutrophils 0 % (0-3); Lymphocytes 58 % (20-51); Monocytes 10 % (2-9); Normal RBC Morphology No; Platelet Count 8 10^3/uL (130-400); Platelets Checked Yes; Segmented Neutrophils 32 % (42-75); White Blood Cell Count 0.6 10^3/uL (4.8-10.8)
[2024-04-30 11:42] LABS: Ovalocytes Slight; Total Cells Counted 100
[2024-04-30 12:25] LABS: Glycohemoglobin (HgbA1c) 6.1 % (4.0-5.6)
== END ==
LOC: REG 09:20
PROVIDERS: ATTENDING PHYSICIAN Internal Medicine Cardiovascular Disease; FAMILY PHYSICIAN Family Medicine; REFERRING PHYSICIAN Internal Medicine Hematology & Oncology
DX: E78.00 Pure hypercholesterolemia, unspecified (principal); I49.3 Ventricular premature depolarization; I95.1 Orthostatic hypotension; C92.00 Acute myeloblastic leukemia, not having achieved remission; R73.9 Hyperglycemia, unspecified
CPT/HCPCS: 36415; 80053; 80061; 83036; 85025

== ENCOUNTER → 2024-05-07 13:54 | Outpatient (REF) | payer MEDICARE, BC, SELFPAY | LOC: REG 13:54 | PROVIDERS: ATTENDING PHYSICIAN Internal Medicine Hematology & Oncology; FAMILY PHYSICIAN Family Medicine | DX: C92.00 Acute myeloblastic leukemia, not having achieved remission (principal) | CPT/HCPCS: 36415; 80053; 85025; 86850; 86900; 86901; 86920 ==

== ENCOUNTER 2024-05-11 14:33 | Outpatient (RCR) | payer MEDICARE, BC, SELFPAY ==
[2024-04-16 14:58] LABS: Hematocrit 18.9 % (39.0-52.0); Hemoglobin 6.4 g/dL (13.0-18.0); Mean Corp Hgb Conc. 33.9 g/dL (33.0-37.0); Mean Corpuscular Hgb 28.6 pg (27.0-31.0); Mean Corpuscular Volume 84.4 fL (80.0-94.0); Platelet Count 12 10^3/uL (130-400); Red Blood Cell Count 2.24 10^6/uL (4.70-6.10); Red Cell Dist. Width 15.9 % (11.5-14.5); White Blood Cell Count 0.8 10^3/uL (4.8-10.8)
[2024-04-16 15:12] LABS: ALT (SGPT) 18 U/L (0-50); AST (SGOT) 20 U/L (17-59); Albumin 3.9 g/dl (3.5-5.0); Alkaline Phosphatase 78 U/L (38-126); Blood Urea Nitrogen 21 mg/dl (9-20); Calcium 8.9 mg/dl (8.4-10.2); Carbon Dioxide 27 mmol/L (22-30); Chloride 104 mmol/L (98-107); Glucose 108 mg/dl (70-99); Potassium 4.6 mmol/L (3.5-5.1); Sodium 138 mmol/L (135-145); Total Bilirubin 0.8 mg/dl (0.2-1.3); Total Protein 5.6 g/dl (6.3-8.2); eGFR > 60.00
[2024-04-16 15:23] LABS: Absolute Neutrophils -Man Diff 0.3 10^3/uL (1.4-6.5); Band Neutrophils 1 % (0-3); Segmented Neutrophils 39 % (42-75)
[2024-04-16 15:24] LABS: Lymphocytes 48 % (20-51); Monocytes 12 % (2-9)
[2024-04-16 15:25] LABS: Normal RBC Morphology Yes; Platelets Checked Yes; Total Cells Counted 100
[2024-04-17] VITALS (7 sets, daily range): BP systolic 94–122; BP diastolic 50–68
[2024-04-23 13:39] LABS: Hematocrit 22.1 % (39.0-52.0); Hemoglobin 7.3 g/dL (13.0-18.0); Mean Corpuscular Hgb 28.2 pg (27.0-31.0); Mean Corpuscular Volume 85.3 fL (80.0-94.0); Red Blood Cell Count 2.59 10^6/uL (4.70-6.10); Red Cell Dist. Width 15.8 % (11.5-14.5)
[2024-04-23 13:41] LABS: Absolute Neutrophils -Man Diff 0.2 10^3/uL (1.4-6.5); Band Neutrophils 8 % (0-3); Platelet Count 10 10^3/uL (130-400); Segmented Neutrophils 32 % (42-75); White Blood Cell Count 0.6 10^3/uL (4.8-10.8)
[2024-04-23 13:42] LABS: Anisocytosis 1+; Eosinophils 4 % (0-6); Lymphocytes 56 % (20-51); Monocytes 0 % (2-9); Normal RBC Morphology No; Ovalocytes FEW; Platelets Checked Yes; Polychromasia 1+
[2024-04-23 13:43] LABS: Total Cells Counted 100
[2024-04-23 14:14] LABS: ALT (SGPT) 18 U/L (0-50); AST (SGOT) 19 U/L (17-59); Albumin 3.6 g/dl (3.5-5.0); Alkaline Phosphatase 77 U/L (38-126); Blood Urea Nitrogen 23 mg/dl (9-20); Calcium 8.8 mg/dl (8.4-10.2); Carbon Dioxide 29 mmol/L (22-30); Chloride 104 mmol/L (98-107); Glucose 76 mg/dl (70-99); Potassium 4.5 mmol/L (3.5-5.1); Sodium 138 mmol/L (135-145); Total Bilirubin 0.8 mg/dl (0.2-1.3); Total Protein 5.3 g/dl (6.3-8.2); eGFR > 60.00
[2024-04-24] VITALS (11 sets, daily range): BP systolic 97–120; BP diastolic 43–73
[2024-04-27 13:39] VITALS: BP 132/62
[2024-04-27] MEDS: NEULASTA 6 MG SC (13:45)
[2024-05-01 08:45] VITALS: BP 126/53
[2024-05-01 09:17] VITALS: BP 126/53
[2024-05-01 09:34] VITALS: BP 111/53
[2024-05-01 10:16] VITALS: BP 114/47
[2024-05-07 16:28] LABS: ALT (SGPT) 18 U/L (0-50); AST (SGOT) 16 U/L (17-59); Albumin 3.4 g/dl (3.5-5.0); Alkaline Phosphatase 80 U/L (38-126); Blood Urea Nitrogen 18 mg/dl (9-20); Calcium 8.9 mg/dl (8.4-10.2); Carbon Dioxide 28 mmol/L (22-30); Chloride 105 mmol/L (98-107); Glucose 134 mg/dl (70-99); Potassium 4.2 mmol/L (3.5-5.1); Sodium 138 mmol/L (135-145); Total Bilirubin 0.6 mg/dl (0.2-1.3); Total Protein 5.2 g/dl (6.3-8.2); eGFR > 60.00
[2024-05-07 17:18] LABS: Hematocrit 19.3 % (39.0-52.0); Hemoglobin 6.6 g/dL (13.0-18.0); Mean Corp Hgb Conc. 34.2 g/dL (33.0-37.0); Mean Corpuscular Hgb 28.8 pg (27.0-31.0); Mean Corpuscular Volume 84.3 fL (80.0-94.0); Platelet Count 8 10^3/uL (130-400); Red Blood Cell Count 2.29 10^6/uL (4.70-6.10); White Blood Cell Count 0.8 10^3/uL (4.8-10.8)
[2024-05-07 17:20] LABS: Absolute Neutrophils -Man Diff 0.4 10^3/uL (1.4-6.5); Band Neutrophils 8 % (0-3); Lymphocytes 48 % (20-51); Platelets Checked Yes; Segmented Neutrophils 44 % (42-75)
[2024-05-07 17:22] LABS: Anisocytosis 1+; Hypochromasia 1+; Microcytosis 1+; Normal RBC Morphology No; Ovalocytes Slight; Total Cells Counted 25
[2024-05-09] VITALS (10 sets, daily range): BP systolic 92–128; BP diastolic 44–68
[2024-05-11 14:44] VITALS: BP 126/54
[2024-05-11] MEDS: FULPHILA 6 MG SC (14:50)
== END 2024-05-11 23:59 | disposition home or self-care (01) ==
LOC: OID 14:33
PROVIDERS: ATTENDING PHYSICIAN Internal Medicine Hematology & Oncology; FAMILY PHYSICIAN Family Medicine
DX: C90.00 Multiple myeloma not having achieved remission (principal); C92.00 Acute myeloblastic leukemia, not having achieved remission; Z51.11 Encounter for antineoplastic chemotherapy
CPT/HCPCS: 36415; 36430; 80053; 85025; 86850; 86900; 86901; 86920; 96372; J2506; P9058; P9073; Q5108

== ENCOUNTER → 2024-05-28 09:58 | Outpatient (REF) | payer MEDICARE, BC, SELFPAY ==
[2024-05-28 11:14] LABS: ALT (SGPT) 21 U/L (0-50); AST (SGOT) 19 U/L (17-59); Albumin 3.4 g/dl (3.5-5.0); Alkaline Phosphatase 87 U/L (38-126); Blood Urea Nitrogen 20 mg/dl (9-20); Calcium 8.8 mg/dl (8.4-10.2); Carbon Dioxide 32 mmol/L (22-30); Chloride 106 mmol/L (98-107); Glucose 67 mg/dl (70-99); Potassium 4.2 mmol/L (3.5-5.1); Sodium 140 mmol/L (135-145); Total Bilirubin 0.6 mg/dl (0.2-1.3); Total Protein 5.3 g/dl (6.3-8.2); eGFR > 60.00
[2024-05-28 11:30] LABS: Absolute Neutrophils -Man Diff 0.2 10^3/uL (1.4-6.5); Band Neutrophils 0 % (0-3); Hematocrit 23.3 % (39.0-52.0); Hemoglobin 7.8 g/dL (13.0-18.0); Lymphocytes 60 % (20-51); Mean Corp Hgb Conc. 33.5 g/dL (33.0-37.0); Mean Corpuscular Hgb 28.6 pg (27.0-31.0); Mean Corpuscular Volume 85.3 fL (80.0-94.0); Mean Platelet Volume 10.4 fL (7.4-10.4); Monocytes 4 % (2-9); Platelet Count 6 10^3/uL (130-400); Red Blood Cell Count 2.73 10^6/uL (4.70-6.10); Red Cell Dist. Width 14.2 % (11.5-14.5); Segmented Neutrophils 36 % (42-75); White Blood Cell Count 0.6 10^3/uL (4.8-10.8)
[2024-05-28 11:31] LABS: Anisocytosis 1+; Hypochromasia 1+; Normal RBC Morphology No; Platelets Checked Yes; Polychromasia 1+
[2024-05-28 11:32] LABS: Ovalocytes 1+; Total Cells Counted 100
== END ==
LOC: REG 09:58
PROVIDERS: ATTENDING PHYSICIAN Internal Medicine Hematology & Oncology; FAMILY PHYSICIAN Family Medicine
DX: C92.00 Acute myeloblastic leukemia, not having achieved remission (principal); D61.9 Aplastic anemia, unspecified
CPT/HCPCS: 36415; 80053; 85025; 86850; 86900; 86901

== ENCOUNTER → 2024-05-30 11:06 | Outpatient (REF) | payer MEDICARE, BC, SELFPAY ==
[2024-05-30 14:06] LABS: Blood Urea Nitrogen 21 mg/dl (9-20); Iron 213 ug/dl (49-181)
[2024-05-30 14:15] LABS: Percent Saturation 96 % (20-50); Total Iron Binding Capacity 220 ug/dl (261-462)
== END ==
LOC: RAD 11:06
PROVIDERS: ATTENDING PHYSICIAN Internal Medicine Hematology & Oncology; FAMILY PHYSICIAN Family Medicine
DX: C92.00 Acute myeloblastic leukemia, not having achieved remission (principal); D61.9 Aplastic anemia, unspecified
CPT/HCPCS: 36415; 71046; 82565; 82728; 83540; 83550; 84520

== ENCOUNTER 2024-06-11 08:09 | Outpatient (RCR) | payer MEDICARE, BC, SELFPAY ==
[2024-05-14 10:23] LABS: ALT (SGPT) 19 U/L (0-50); AST (SGOT) 17 U/L (17-59); Albumin 3.4 g/dl (3.5-5.0); Alkaline Phosphatase 79 U/L (38-126); Blood Urea Nitrogen 18 mg/dl (9-20); Calcium 9.1 mg/dl (8.4-10.2); Carbon Dioxide 27 mmol/L (22-30); Chloride 106 mmol/L (98-107); Glucose 108 mg/dl (70-99); Sodium 140 mmol/L (135-145); Total Bilirubin 0.7 mg/dl (0.2-1.3); Total Protein 5.2 g/dl (6.3-8.2); eGFR > 60.00
[2024-05-14 11:08] LABS: Absolute Neutrophils -Man Diff 0.7 10^3/uL (1.4-6.5); Band Neutrophils 8 % (0-3); Hematocrit 23.2 % (39.0-52.0); Hemoglobin 7.5 g/dL (13.0-18.0); Lymphocytes 26 % (20-51); Mean Corp Hgb Conc. 32.3 g/dL (33.0-37.0); Mean Corpuscular Hgb 28.4 pg (27.0-31.0); Mean Corpuscular Volume 87.9 fL (80.0-94.0); Mean Platelet Volume 9.6 fL (7.4-10.4); Platelet Count 8 10^3/uL (130-400); Platelets Checked Yes; Red Blood Cell Count 2.64 10^6/uL (4.70-6.10); Red Cell Dist. Width 14.6 % (11.5-14.5); Segmented Neutrophils 66 % (42-75)
[2024-05-14 11:09] LABS: Anisocytosis 1+; Hypochromasia 2+; Normal RBC Morphology No; Ovalocytes 1+; Polychromasia 1+; Total Cells Counted 100
[2024-05-15 08:28] VITALS: BP 116/57
[2024-05-15 08:45] VITALS: BP 102/53
[2024-05-15 09:38] VITALS: BP 94/52
[2024-05-15 10:00] VITALS: BP 94/61
[2024-05-15 10:15] VITALS: BP 107/47
[2024-05-15 12:00] VITALS: BP 115/56
[2024-05-21 10:08] LABS: Hematocrit 20.3 % (39.0-52.0); Hemoglobin 6.8 g/dL (13.0-18.0); Mean Corp Hgb Conc. 33.5 g/dL (33.0-37.0); Mean Corpuscular Hgb 28.5 pg (27.0-31.0); Mean Corpuscular Volume 84.9 fL (80.0-94.0); Mean Platelet Volume 11.7 fL (7.4-10.4); Platelet Count 7 10^3/uL (130-400); Red Blood Cell Count 2.39 10^6/uL (4.70-6.10); Red Cell Dist. Width 14.5 % (11.5-14.5); White Blood Cell Count 0.7 10^3/uL (4.8-10.8)
[2024-05-21 10:09] LABS: Absolute Neutrophils -Man Diff 0.3 10^3/uL (1.4-6.5); Anisocytosis 1+; Band Neutrophils 0 % (0-3); Hypochromasia 1+; Lymphocytes 43 % (20-51); Monocytes 2 % (2-9); Normal RBC Morphology No; Platelets Checked Yes; Polychromasia Slight; Segmented Neutrophils 55 % (42-75); Total Cells Counted 100
[2024-05-21 10:12] LABS: ALT (SGPT) 19 U/L (0-50); AST (SGOT) 17 U/L (17-59); Albumin 3.4 g/dl (3.5-5.0); Alkaline Phosphatase 80 U/L (38-126); Blood Urea Nitrogen 21 mg/dl (9-20); Calcium 8.9 mg/dl (8.4-10.2); Carbon Dioxide 27 mmol/L (22-30); Chloride 106 mmol/L (98-107); Glucose 115 mg/dl (70-99); Potassium 3.9 mmol/L (3.5-5.1); Sodium 139 mmol/L (135-145); Total Bilirubin 0.6 mg/dl (0.2-1.3); Total Protein 5.3 g/dl (6.3-8.2); eGFR > 60.00
[2024-05-22] VITALS (10 sets, daily range): BP systolic 97–136; BP diastolic 51–76
[2024-05-29 13:25] VITALS: BP 139/53
[2024-05-29 13:47] VITALS: BP 139/53
[2024-05-29] MEDS: FULPHILA 6 MG SC (13:54)
[2024-05-29 14:04] VITALS: BP 95/47
[2024-05-29 14:51] VITALS: BP 107/57
[2024-06-04 10:23] LABS: Absolute Neutrophils -Man Diff 0.3 10^3/uL (1.4-6.5); Anisocytosis 1+; Band Neutrophils 0 % (0-3); Eosinophils 2 % (0-6); Hematocrit 20.2 % (39.0-52.0); Hemoglobin 6.6 g/dL (13.0-18.0); Hypochromasia 1+; Lymphocytes 44 % (20-51); Mean Corp Hgb Conc. 32.7 g/dL (33.0-37.0); Mean Corpuscular Hgb 27.6 pg (27.0-31.0); Mean Corpuscular Volume 84.5 fL (80.0-94.0); Monocytes 2 % (2-9); Normal RBC Morphology No; Platelet Count 7 10^3/uL (130-400); Platelets Checked Yes; Red Blood Cell Count 2.39 10^6/uL (4.70-6.10); Red Cell Dist. Width 14.2 % (11.5-14.5); Segmented Neutrophils 52 % (42-75); Total Cells Counted 100; White Blood Cell Count 0.7 10^3/uL (4.8-10.8)
[2024-06-04 13:13] LABS: ALT (SGPT) 18 U/L (0-50); AST (SGOT) 16 U/L (17-59); Albumin 3.5 g/dl (3.5-5.0); Alkaline Phosphatase 107 U/L (38-126); Blood Urea Nitrogen 21 mg/dl (9-20); Calcium 8.7 mg/dl (8.4-10.2); Carbon Dioxide 29 mmol/L (22-30); Chloride 108 mmol/L (98-107); Glucose 107 mg/dl (70-99); Potassium 4.1 mmol/L (3.5-5.1); Sodium 144 mmol/L (135-145); Total Bilirubin 0.6 mg/dl (0.2-1.3); Total Protein 5.3 g/dl (6.3-8.2); eGFR > 60.00
[2024-06-05] VITALS (9 sets, daily range): BP systolic 97–126; BP diastolic 44–58
== END 2024-06-11 12:21 | disposition home or self-care (01) ==
LOC: OID 08:09
PROVIDERS: ATTENDING PHYSICIAN Internal Medicine Hematology & Oncology; FAMILY PHYSICIAN Family Medicine
DX: C92.00 Acute myeloblastic leukemia, not having achieved remission (principal); C90.00 Multiple myeloma not having achieved remission; Z51.11 Encounter for antineoplastic chemotherapy
CPT/HCPCS: 36415; 36430; 80053; 85025; 86850; 86900; 86901; 86920; 96372; P9058; P9073; Q5108

== ENCOUNTER 2024-06-12 07:45 | Outpatient (RCR) | payer MEDICARE, BC, SELFPAY ==
[2024-06-11 09:24] LABS: ALT (SGPT) 18 U/L (0-50); AST (SGOT) 16 U/L (17-59); Albumin 3.4 g/dl (3.5-5.0); Alkaline Phosphatase 102 U/L (38-126); Blood Urea Nitrogen 16 mg/dl (9-20); Calcium 8.5 mg/dl (8.4-10.2); Carbon Dioxide 28 mmol/L (22-30); Chloride 108 mmol/L (98-107); Glucose 106 mg/dl (70-99); Potassium 4.2 mmol/L (3.5-5.1); Sodium 144 mmol/L (135-145); Total Bilirubin 0.4 mg/dl (0.2-1.3); Total Protein 5.2 g/dl (6.3-8.2); eGFR > 60.00
[2024-06-11 10:09] LABS: Hematocrit 21.6 % (39.0-52.0); Hemoglobin 7.3 g/dL (13.0-18.0); Mean Corp Hgb Conc. 33.8 g/dL (33.0-37.0); Mean Corpuscular Hgb 28.7 pg (27.0-31.0); Platelet Count 5 10^3/uL (130-400); Red Blood Cell Count 2.54 10^6/uL (4.70-6.10); Red Cell Dist. Width 14.6 % (11.5-14.5); White Blood Cell Count 0.5 10^3/uL (4.8-10.8)
[2024-06-11 10:10] LABS: Absolute Neutrophils -Man Diff 0.1 10^3/uL (1.4-6.5); Band Neutrophils 0 % (0-3); Lymphocytes 60 % (20-51); Monocytes 2 % (2-9); Myelocytes 1 % (-); Normal RBC Morphology No; Platelets Checked Yes; Segmented Neutrophils 37 % (42-75)
[2024-06-11 10:11] LABS: Anisocytosis 1+; Hypochromasia 1+; Total Cells Counted 100
[2024-06-12] VITALS (10 sets, daily range): BP systolic 109–128; BP diastolic 50–70
== END 2024-06-19 09:49 | disposition home or self-care (01) ==
LOC: OID 07:45
PROVIDERS: ATTENDING PHYSICIAN Internal Medicine Hematology & Oncology; FAMILY PHYSICIAN Family Medicine
DX: C92.00 Acute myeloblastic leukemia, not having achieved remission (principal); C90.00 Multiple myeloma not having achieved remission; Z51.11 Encounter for antineoplastic chemotherapy
CPT/HCPCS: 36430; 80053; 85025; 86850; 86900; 86901; 86920; P9058; P9073

== ENCOUNTER 2024-07-10 08:30 | Outpatient (RCR) | payer MEDICARE, BC, SELFPAY ==
[2024-06-18 09:47] LABS: ALT (SGPT) 22 U/L (0-50); AST (SGOT) 19 U/L (17-59); Albumin 3.6 g/dl (3.5-5.0); Alkaline Phosphatase 86 U/L (38-126); Blood Urea Nitrogen 22 mg/dl (9-20); Calcium 9.1 mg/dl (8.4-10.2); Carbon Dioxide 32 mmol/L (22-30); Chloride 105 mmol/L (98-107); Glucose 117 mg/dl (70-99); Potassium 4.3 mmol/L (3.5-5.1); Sodium 143 mmol/L (135-145); Total Bilirubin 0.6 mg/dl (0.2-1.3); Total Protein 5.5 g/dl (6.3-8.2); eGFR > 60.00
[2024-06-18 10:34] LABS: Hematocrit 24.5 % (39.0-52.0); Hemoglobin 8.1 g/dL (13.0-18.0); Mean Corp Hgb Conc. 33.1 g/dL (33.0-37.0); Mean Corpuscular Hgb 28.3 pg (27.0-31.0); Mean Corpuscular Volume 85.7 fL (80.0-94.0); Platelet Count 4 10^3/uL (130-400); Red Blood Cell Count 2.86 10^6/uL (4.70-6.10); Red Cell Dist. Width 14.2 % (11.5-14.5); White Blood Cell Count 0.5 10^3/uL (4.8-10.8)
[2024-06-18 12:35] LABS: Absolute Neutrophils -Man Diff 0.1 10^3/uL (1.4-6.5); Band Neutrophils 2 % (0-3); Lymphocytes 70 % (20-51); Monocytes 3 % (2-9); Myelocytes 2 % (-); Platelets Checked Yes; Segmented Neutrophils 23 % (42-75)
[2024-06-18 12:36] LABS: Anisocytosis 1+; Hypochromasia Slight; Normal RBC Morphology No; Polychromasia Slight
[2024-06-18 14:14] LABS: Total Cells Counted 100
[2024-06-19 08:44] VITALS: BP 115/52
[2024-06-19 09:10] VITALS: BP 115/52
[2024-06-19 09:17] VITALS: BP 115/52
[2024-06-19 09:34] VITALS: BP 107/48
[2024-06-19 10:19] VITALS: BP 114/45
[2024-06-25 09:20] VITALS: BP 111/49
[2024-06-25 09:44] LABS: % Immature Granulocytes 4.2 % (0-0.5); % Lymphocytes 39.6 % (20.5-51.1); % Monocytes 37.5 % (1.7-9.3); % Neutrophils 18.7 % (42.2-75.2); Absolute Lymphocytes 0.2 10^3/uL (1.2-3.4); Absolute Monocytes 0.2 10^3/uL (0.1-0.6); Hemoglobin 7.1 g/dL (13.0-18.0); Mean Corp Hgb Conc. 34.5 g/dL (33.0-37.0); Mean Corpuscular Hgb 28.5 pg (27.0-31.0); Mean Corpuscular Volume 82.7 fL (80.0-94.0); Red Blood Cell Count 2.49 10^6/uL (4.70-6.10); Red Cell Dist. Width 13.8 % (11.5-14.5)
[2024-06-25 09:49] LABS: White Blood Cell Count 0.5 10^3/uL (4.8-10.8)
[2024-06-25 09:50] LABS: Hematocrit 20.6 % (39.0-52.0)
[2024-06-25 09:51] LABS: Absolute Neutrophils 0.1 10^3/uL (1.4-6.5); Platelet Count 4 10^3/uL (130-400)
[2024-06-25 10:09] LABS: ALT (SGPT) 24 U/L (0-50); AST (SGOT) 20 U/L (17-59); Albumin 3.9 g/dl (3.5-5.0); Alkaline Phosphatase 82 U/L (38-126); Blood Urea Nitrogen 22 mg/dl (9-20); Calcium 8.9 mg/dl (8.4-10.2); Carbon Dioxide 26 mmol/L (22-30); Chloride 106 mmol/L (98-107); Glucose 98 mg/dl (70-99); Potassium 3.9 mmol/L (3.5-5.1); Sodium 141 mmol/L (135-145); Total Bilirubin 0.6 mg/dl (0.2-1.3); Total Protein 5.7 g/dl (6.3-8.2); eGFR > 60.00
[2024-06-25] MEDS: DECADRON 50.8 MG IV (10:55)
[2024-06-25] MEDS: ALOXI 5 MG IV (10:55)
[2024-06-25] MEDS: VIDAZA 100 MG IV (11:23)
[2024-06-25 12:30] VITALS: BP 96/50
[2024-06-25 12:45] VITALS: BP 96/50
[2024-06-25 13:00] VITALS: BP 110/54
[2024-06-25 15:05] VITALS: BP 117/51
[2024-06-26] VITALS (8 sets, daily range): BP systolic 99–120; BP diastolic 48–69
[2024-06-26] MEDS: VIDAZA 100 MG IV (09:51)
[2024-06-27 13:15] VITALS: BP 120/62; BP 140/55
[2024-06-27] MEDS: VIDAZA 100 MG IV (13:38)
[2024-06-27 13:56] LABS: % Immature Granulocytes 8.7 % (0-0.5); % Lymphocytes 43.5 % (20.5-51.1); % Monocytes 19.6 % (1.7-9.3); % Neutrophils 28.2 % (42.2-75.2); Absolute Lymphocytes 0.2 10^3/uL (1.2-3.4); Absolute Monocytes 0.1 10^3/uL (0.1-0.6); Absolute Neutrophils 0.1 10^3/uL (1.4-6.5); Hematocrit 25.3 % (39.0-52.0); Hemoglobin 8.8 g/dL (13.0-18.0); Mean Corp Hgb Conc. 34.8 g/dL (33.0-37.0); Mean Corpuscular Hgb 28.3 pg (27.0-31.0); Mean Corpuscular Volume 81.4 fL (80.0-94.0); Nucleated Red Blood Cells % 0 % (-); Red Blood Cell Count 3.11 10^6/uL (4.70-6.10); Red Cell Dist. Width 14.4 % (11.5-14.5); White Blood Cell Count 0.5 10^3/uL (4.8-10.8)
[2024-06-27 14:08] LABS: Platelet Count 18 10^3/uL (130-400)
[2024-06-27 14:09] LABS: Mean Platelet Volume 10.7 fL (7.4-10.4)
[2024-06-28 09:23] VITALS: BP 111/51
[2024-06-28 09:52] LABS: Glucose - Point of Care 119 mg/dl (70-99)
--- NOTE | 2024-06-28 09:57 | PTCARENOTE ---
0950: pt called from room stating 'I don't feel well.' lying in chair, color pale, asking for water, pt c/o slight dizziness. bp: 102/53, hr: 58, blood sugar 119, after a few minutes, pt stating he felt better, now sitting up in chair drinking
water. will follow.
[2024-06-28] MEDS: VIDAZA 100 MG IV (10:09)
[2024-06-28] MEDS: ALOXI 5 MG IV (10:10)
[2024-06-28 11:10] VITALS: BP 102/53
[2024-06-28 11:13] VITALS: BP 109/57
[2024-06-29 09:25] VITALS: BP 124/50
[2024-06-29] MEDS: VIDAZA 100 MG IV (10:01)
[2024-06-29 11:13] VITALS: BP 105/53
[2024-06-29 11:30] VITALS: BP 110/60
[2024-06-29 12:16] VITALS: BP 111/52
[2024-07-02 09:29] VITALS: BP 118/58
[2024-07-02 09:47] LABS: % Lymphocytes 68.4 % (20.5-51.1); % Monocytes 10.5 % (1.7-9.3); % Neutrophils 21.1 % (42.2-75.2); Absolute Lymphocytes 0.1 10^3/uL (1.2-3.4); Hematocrit 22.5 % (39.0-52.0); Hemoglobin 7.7 g/dL (13.0-18.0); Mean Corp Hgb Conc. 34.2 g/dL (33.0-37.0); Mean Corpuscular Volume 81.8 fL (80.0-94.0); Mean Platelet Volume 10.3 fL (7.4-10.4); Red Blood Cell Count 2.75 10^6/uL (4.70-6.10); Red Cell Dist. Width 13.9 % (11.5-14.5)
[2024-07-02 09:48] LABS: Platelet Count 6 10^3/uL (130-400); White Blood Cell Count 0.2 10^3/uL (4.8-10.8)
[2024-07-02] MEDS: ALOXI 5 MG IV (10:12)
[2024-07-02] MEDS: VIDAZA 100 MG IV (10:16)
[2024-07-02 10:34] LABS: ALT (SGPT) 23 U/L (0-50); AST (SGOT) 19 U/L (17-59); Albumin 3.6 g/dl (3.5-5.0); Alkaline Phosphatase 94 U/L (38-126); Blood Urea Nitrogen 21 mg/dl (9-20); Carbon Dioxide 28 mmol/L (22-30); Chloride 105 mmol/L (98-107); Glucose 104 mg/dl (70-99); Potassium 4.4 mmol/L (3.5-5.1); Sodium 142 mmol/L (135-145); Total Bilirubin 0.7 mg/dl (0.2-1.3); Total Protein 5.5 g/dl (6.3-8.2); eGFR > 60.00
[2024-07-02 11:33] VITALS: BP 105/55
[2024-07-02 11:51] VITALS: BP 116/50
[2024-07-02 12:35] VITALS: BP 116/49
[2024-07-03 09:29] VITALS: BP 112/59
[2024-07-03] MEDS: VIDAZA 100 MG IV (10:03)
[2024-07-03 10:55] VITALS: BP 96/50
[2024-07-03 11:00] VITALS: BP 96/50
[2024-07-03 11:15] VITALS: BP 102/46
[2024-07-03 13:10] VITALS: BP 122/62
[2024-07-09 09:43] LABS: ALT (SGPT) 20 U/L (0-50); AST (SGOT) 18 U/L (17-59); Albumin 3.6 g/dl (3.5-5.0); Alkaline Phosphatase 90 U/L (38-126); Blood Urea Nitrogen 16 mg/dl (9-20); Calcium 9.1 mg/dl (8.4-10.2); Carbon Dioxide 30 mmol/L (22-30); Chloride 107 mmol/L (98-107); Glucose 111 mg/dl (70-99); Potassium 4.5 mmol/L (3.5-5.1); Sodium 143 mmol/L (135-145); Total Bilirubin 0.6 mg/dl (0.2-1.3); Total Protein 5.5 g/dl (6.3-8.2); eGFR > 60.00
[2024-07-09 11:25] LABS: % Lymphocytes 78.3 % (20.5-51.1); % Neutrophils 8.7 % (42.2-75.2); Absolute Lymphocytes 0.2 10^3/uL (1.2-3.4); Hematocrit 22.5 % (39.0-52.0); Hemoglobin 7.8 g/dL (13.0-18.0); Mean Corp Hgb Conc. 34.7 g/dL (33.0-37.0); Mean Corpuscular Hgb 28.3 pg (27.0-31.0); Mean Corpuscular Volume 81.5 fL (80.0-94.0); Nucleated Red Blood Cells % 0 % (-); Platelet Count 4 10^3/uL (130-400); Red Blood Cell Count 2.76 10^6/uL (4.70-6.10); White Blood Cell Count 0.2 10^3/uL (4.8-10.8)
[2024-07-10 08:50] VITALS: BP 123/52
[2024-07-10 09:11] VITALS: BP 123/52
[2024-07-10 09:16] VITALS: BP 123/52
[2024-07-10 09:32] VITALS: BP 100/43
[2024-07-10 10:20] VITALS: BP 109/45
== END 2024-07-11 23:59 | disposition home or self-care (01) ==
LOC: OID 08:30
PROVIDERS: ATTENDING PHYSICIAN Internal Medicine Hematology & Oncology; FAMILY PHYSICIAN Family Medicine
DX: C92.00 Acute myeloblastic leukemia, not having achieved remission (principal); Z51.11 Encounter for antineoplastic chemotherapy (principal); D61.9 Aplastic anemia, unspecified
CPT/HCPCS: 36415; 36430; 80053; 82962; 85025; 86850; 86900; 86901; 86920; 96367; 96375; 96413; J2469; J9025; P9058; P9073

== ENCOUNTER 2024-07-23 20:52 | Inpatient (IN) | payer MEDICARE, BC, SELFPAY ==
[2024-07-23] VITALS (17 sets, daily range): BP systolic 133–155; BP diastolic 64–115; BMI 21.5; BMI 22.0
[2024-07-23 14:09] LABS: Lactic Acid 1.2 mmol/L (0.7-2.0)
[2024-07-23 14:11] LABS: % Monocytes 33.3 % (1.7-9.3); % Neutrophils 6.7 % (42.2-75.2); Absolute Lymphocytes 0.1 10^3/uL (1.2-3.4); Absolute Monocytes 0.1 10^3/uL (0.1-0.6); Hematocrit 20.3 % (39.0-52.0); Mean Corp Hgb Conc. 34.5 g/dL (33.0-37.0); Mean Corpuscular Hgb 28.1 pg (27.0-31.0); Mean Corpuscular Volume 81.5 fL (80.0-94.0); Nucleated Red Blood Cells % 0 % (-); Platelet Count 5 10^3/uL (130-400); Red Blood Cell Count 2.49 10^6/uL (4.70-6.10); Red Cell Dist. Width 13.6 % (11.5-14.5); White Blood Cell Count 0.2 10^3/uL (4.8-10.8)
[2024-07-23 14:18] LABS: COVID-19 Antigen Negative (Negative)
[2024-07-23 14:24] LABS: AST (SGOT) 23 U/L (17-59); Albumin 3.2 g/dl (3.5-5.0); Alkaline Phosphatase 67 U/L (38-126); Blood Urea Nitrogen 21 mg/dl (9-20); Calcium 8.7 mg/dl (8.4-10.2); Carbon Dioxide 29 mmol/L (22-30); Chloride 101 mmol/L (98-107); Glucose 190 mg/dl (70-99); Sodium 137 mmol/L (135-145); Total Bilirubin 0.8 mg/dl (0.2-1.3); Total Protein 5.5 g/dl (6.3-8.2); eGFR > 60.00
[2024-07-23 14:38] LABS: ALT (SGPT) 27 U/L (0-50); Potassium 4.4 mmol/L (3.5-5.1)
--- NOTE | 2024-07-23 17:55 | ED.GENMED ---
History of Present Illness
General
Chief Complaint: Abnormal Lab Value
Source: patient
Exam Limitations: none
Time Seen by Provider: 07/23/24 14:55
Nursing documentation reviewed up to this point in time: agreed with
History of Present Illness
History of Present Illness:
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
associated with decreased appetite. Denies blood with urination or with bowel movements. Denies coughing. Denies chest pain. Denies shortness of breath. Denies nausea or vomiting. Denies diarrhea.
Past History
Past History
ED Past Medical History: Hypercholesterolemia and Other (MDS)
ED Past Surgical History: Other (Inguinal hernia repair)
Social History
Tobacco: Non-smoker
Alcohol: None
Review of Systems
Review of Systems
Allergies reviewed?: Yes
All Other Systems: ROS reviewed and negative except as documented in HPI and ROS
Constitutional: Reports fever and chills
EENT: Reports no symptoms
Respiratory: Reports no symptoms; Denies cough
Cardiac: Reports no symptoms
ABD/GI: Reports no symptoms; Denies vomiting or diarrhea
Musculoskeletal: Reports no symptoms
Skin: Reports no symptoms
Neurological: Reports weakness
Phy Exam
Physical Exam
Physical Exam:
Physical Exam
General: mild distress, not acutely ill. febrile. weak appearing
Head: nc/at. eomi
Neck: supple. no meningeal signs.
Heart: s1/s2 regular rate and rhythm
Lungs: no acute respiratory distress. clear bilaterally
Abdomen: normal bowel sounds. not tender.
Neuro: alert and oriented x 3. no focal neurological deficits
Skin: no rash
Psychiatric: well kept. interactive and cooperative
Extremities: no edema. no calf tenderness.
Course
Orders/Labs/Results
Orders:
Orders
07/23/24 Breakfast
Cholesterol Lowering
At Your Request: Full Participation
Cholesterol Lowering: Sodium, 2 Gram
07/23/24 13:39
Chest [CR Chest - 2 Views ] Urgent
Comment:
Reason For Exam: fever
07/23/24 13:44
COVID-19 Antigen Urgent
Source: Nasal Swab
Complete Blood Count/With Diff Urgent
Comprehensive Metabolic Panel Urgent
Lactic Acid Urgent
Blood Culture Urgent
NORMAN Source: Blood/Venous
Specimen Description:
Influenza A+B Rapid Molecular Urgent
NORMAN Source: Nasal Swab
Specimen Description:
07/23/24 17:42
Blood Culture Urgent
NORMAN Source: Blood/Venous
Specimen Description:
07/23/24 17:57
Cefepime HCl [Maxipime] 1,000 mg IV NOW STA
07/23/24 17:58
* Blood Bank Products Urgent
Blood Bank Products: RBC Leuko CMV Neg Irr
Quantity: 1
Transfuse Today: Yes
Reason: Anemia
IV Insert/Care/Rem.- Treatment PRN
07/23/24 17:59
* Blood Bank Products Urgent
Blood Bank Products: *Plt Single Donor Leuko
Quantity: 1
Transfuse Today: Yes
Reason: Thrombocytopenia
IV Insert/Care/Rem.- Treatment PRN
07/23/24 18:25
Acetaminophen [Tylenol] 650 mg PO NOW STA
07/23/24 19:25
IV Insert/Care/Rem.- Treatment PRN
07/23/24 19:33
Type+Screen Urgent
BBK Wristband Number:
07/23/24 20:18
0.9% Sodium Chloride 500 ml [Nss] 500 ml IV BOLUS
07/23/24 20:21
Admit/Transfer Patient As Directed
Co-Sign Provider:
Level of Care: Inpatient admission
Assign to:: IMU- Intermediate Care
Physician / Group: [email or web address]
Diagnosis: Severe neutropenic fever, chr pancytopenia
Reason for Hospitalization: Severe neutropenic fever
Expected length of stay greater than two midnights?: Yes
ELOS- Estimated Length of Stay in days: 3
I certify the patient meets the requirements for IP care: Yes
07/23/24 20:23
Code Status As Directed
Resuscitation Status: Full Code
07/23/24 21:30
Blood Culture Q30M
NORMAN Source: Blood/Venous
Specimen Description:
Comment: IF NOT OBTAINED IN ED
Ondansetron HCl [Zofran] 8 mg PO Q6HPRN PRN
07/23/24 21:30
ONCOLOGY CONSULT Routine
Consulting Provider: Ag Boykin
Was physician already notified: Yes
Reason for consult: Severe neutropenic fever
Activity As Directed
Activity Level: As Tolerated
Intake/ Output As Directed
Frequency: Per unit guidelines
Pneumatic Compression Sleeves As Directed
Type: Knee high
Vital Signs As Directed
Frequency: Per unit guidelines
Weight As Directed
Frequency: Daily
DX Deep Vein Thrombosis Video Routine
07/23/24 22:00
Blood Culture Q30M
NORMAN Source: Blood/Venous
Specimen Description:
Comment: IF NOT OBTAINED IN ED
Atorvastatin [Lipitor] 80 mg PO HS
07/23/24 23:42
Urinalysis Reflex To Culture Urgent
Date Specimen was Collected: 07/23/24
Time Specimen was Collected: 23:38
07/24/24 04:59
Complete Blood Count/With Diff IN AM
Comprehensive Metabolic Panel IN AM
07/24/24 08:00
Acyclovir [Zovirax] 400 mg PO BID
Allopurinol [Zyloprim] 300 mg PO DAILY
Abnormal Lab Results
07/23/24 07/23/24
13:44 19:33
WBC 0.2 L* 10^3/uL
(4.8-10.8)
RBC 2.49 L 10^6/uL
(4.70-6.10)
Hgb 7.0 L g/dL
(13.0-18.0)
Hct 20.3 L* %
(39.0-52.0)
Plt Count 5 L* 10^3/uL
(130-400)
Absolute Neuts (auto) 0.0 L* 10^3/uL
(1.4-6.5)
Absolute Lymphs (auto) 0.1 L 10^3/uL
(1.2-3.4)
Neutrophils % 6.7 L %
(42.2-75.2)
Lymphocytes % 60.0 H %
(20.5-51.1)
Monocytes % 33.3 H %
(1.7-9.3)
BUN 21 H mg/dl
(9-20)
Glucose 190 H mg/dl
(70-99)
Total Protein 5.5 L g/dl
(6.3-8.2)
Albumin 3.2 L g/dl
(3.5-5.0)
Crossmatch IS Only See Detail
07/23/24 13:44
07/23/24 13:44
Vital Signs
Initial and Last Documented VS:
Initial Vital Signs
Temp Pulse Resp BP Pulse Ox
98.5 F 97 20 135/69 97
07/23/24 13:35 07/23/24 13:35 07/23/24 13:35 07/23/24 13:35 07/23/24 13:35
Last Documented Vital Signs
Temp Pulse Resp BP Pulse Ox
99.3 F 91 24 134/74 94
07/25/24 07:35 07/25/24 07:33 07/25/24 07:33 07/25/24 07:33 07/25/24 07:33
MDM/Problems Addressed
MDM/Problems Addressed:
History and exam concerning for neutropenic fever, along with pancytopenia.
Discussed with on-call oncology, Dr. Boykin. Decision made to admit the patient to hospitalist service with empiric via cefepime, along with blood and platelet transfusion.
Transfusion consent on the chart.
*Critical Care Note
Total Time (30-74mins, 75-104mins- exclusive of procedures): Not Applicable
ED Attending Note
-
Portions of this chart may have been created with voice recognition software.� Occasional wrong word or��sound alike� substitutions may have occurred due to the inherent limitations of voice recognition software.
Discharge Plan
Departure
Patient Disposition: Admit
Date of Disposition: 07/23/24
Time of Disposition: 18:02
Admit to: Med/Surg
Presentation/result/management discussed w/ accepting MD/DO: Hospitalist
Discharge Problem:
Neutropenic fever, Pancytopenia
Interventions
Interventions:
*Risk Screen - Suicide Last Done: 07/23/24 13:35
*General Assessment Last Done: 07/23/24 13:35
*Neglect/Abuse Screening Last Done: 07/23/24 19:05
*ED- Fall Risk Assessment Last Done: 07/23/24 19:05
*ED COVID-19 Vaccine History Last Done: 07/23/24 19:05
*Nursing Disposition Last Done: 07/23/24 21:30
Discharge Date and Time
Discharge Date/Time: 07/23/24 21:30
[2024-07-23] MEDS: TYLENOL 650 MG PO (18:56)
[2024-07-23] MEDS: MAXIPIME 1000 MG IV (18:57)
--- NOTE | 2024-07-23 19:52 | HPS.HSE ---
Family Physician
-
Family Physician: Fide Langford MD
Chief Complaint
-
generalized weakness and fever
History of Present Illness
HPI
HX MDS, transitioning to AML seen at ER:
- HX ongoing generalized weakness and pancytopenia requiring multiple transfusions,
- intermittent fever over the past 1 week along with worsening generalized weakness, associated with decreased appetite.
ROS;
- Denies blood with urination or with bowel movements.
- Denies coughing. Denies chest pain.
- Denies shortness of breath.
- Denies nausea or vomiting.
- Denies diarrhea.
Medical History
Past Medical History
Past Medical History: Reports Cancer (MDS, transitioning to AML, pancytopenia , HX multiple transfusions) and Hypercholesterolemia
Past Surgical History: Reports Other (Inguinal hernia repair)
Social History
Tobacco: Non-smoker
Alcohol: None
Family History
Family History: Not pertinent
Allergies / Home Medications
Allergies reflects when Allergies were last updated in [facility].
Home Medications with original date entered in [facility]
Allergy/Medication List:
Allergies
Allergy/AdvReac Type Severity Reaction Status Date / Time
Penicillins Allergy Intermediate Hives Verified 07/23/24 13:37
lidocaine Allergy Itching Verified 07/23/24 13:37
Home Medications
Lactobac no.2-Bifidobac no.1-S. thermo 112.5 billion cell capsule (Visbiome) 1 cap PO DAILY ##0 12/31/23
acyclovir 400 mg tablet 400 mg PO BID 12/31/23
famotidine 20 mg tablet 20 mg PO D42HCVY PRN NAUSEA 12/31/23
polyethylene glycol 3350 17 gram oral powder packet 17 g PO DAILYPRN PRN constipation 12/31/23
sodium chloride 0.65 % nasal spray aerosol 1 spray intranasal BID 12/31/23
zolpidem 5 mg tablet 5 mg PO HSPRN PRN insomnia 12/31/23
allopurinol 300 mg tablet 300 mg PO DAILY Gout #0 tabs 01/09/24
cyanocobalamin (vitamin B-12) 1,000 mcg tablet 1,000 mcg PO DAILY supplement 30 days #30 tabs 01/09/24
levofloxacin 500 mg tablet 500 mg PO DAILY prophylasis #0 tabs 01/09/24
ondansetron HCl 8 mg tablet 8 mg PO Q6HPRN PRN nausea 01/23/24
docusate sodium 100 mg capsule (Colace) 100 mg PO DAILYPRN PRN constipation 02/16/24
loratadine 10 mg tablet (Claritin) 10 mg PO DAILYPRN PRN neulasta injection 02/16/24
atorvastatin 80 mg tablet 80 mg PO HS cholesterol 04/03/24
venetoclax 100 mg tablet 400 mg PO DIRECTED 06/26/24
ergocalciferol (vitamin D2) 1,250 mcg (50,000 unit) capsule 1,250 mcg PO WE vitamin D deficiency 07/23/24
njeqqbycniogt-WE-thkwmfdwtezbn-guaif 5 mg-10 mg-325 mg-200mg/15 mL liq (Theraflu ExpressMax Severe Cold-Flu) 15 ml PO DAILYPRN PRN COLD AND COUGH 07/23/24
Review of Systems
-
Constitutional: Reports Fever and Other (poor appetite )
EENT: Reports No Symptoms
Respiratory: Reports No Symptoms
Cardiac: Reports No Symptoms
Abdomen/GI: Reports No Symptoms
: Reports No Symptoms
Musculoskeletal: Reports No Symptoms
Skin: Reports No Symptoms
Neurological: Reports Weakness
Endocrine: Reports No Symptoms
Hematologic/Lymphatic: Reports No Symptoms
Psych: Reports No Symptoms
Physical Exam
Vital Signs
Vital Signs
Temp Pulse Resp BP Pulse Ox
101.3 F H 91 21 145/64 99
07/23/24 17:47 07/23/24 19:00 07/23/24 19:00 07/23/24 19:00 07/23/24 17:15
Physical Exam
General: Poor Appetite and Other (appears tired)
HEENT: Anicteric, Moist mucous membranes and Other (no meningeal signs )
Respiratory: Clear; No Wheezes or Rales
Cardiac: S1/S2 and Regular Rhythm; No Murmur
GI: Soft, Non Tender, Non Distended and Normal Bowel Sounds
Musculoskeletal: No Edema
Skin: Warm
Neuro: AO x 3
Psych: Calm
Laboratory Results
-
07/23/24 13:44
07/23/24 13:44
Laboratory Results
Lactic Acid 1.2 mmol/L (0.7-2.0) 07/23/24 13:44
Total Bilirubin 0.8 mg/dl (0.2-1.3) 07/23/24 13:44
AST 23 U/L (17-59) 07/23/24 13:44
ALT 27 U/L (0-50) 07/23/24 13:44
Alkaline Phosphatase 67 U/L (38-126) 07/23/24 13:44
Data Reviewed
-
Diagnostic Radiology: Report Reviewed by me
Lab Data: Labs Reviewed by me
Old Records: Reviewed
Impression/Plan
-
Vital Signs
Temp Pulse Resp BP Pulse Ox
101.3 F H 91 21 145/64 99
07/23/24 17:47 07/23/24 19:00 07/23/24 19:00 07/23/24 19:00 07/23/24 17:15
Abnormal Lab Results
07/23/24
13:44
WBC 0.2 L*
RBC 2.49 L
Hgb 7.0 L
Hct 20.3 L*
Plt Count 5 L*
Absolute Neuts (auto) 0.0 L*
Absolute Lymphs (auto) 0.1 L
Neutrophils % 6.7 L
Lymphocytes % 60.0 H
Monocytes % 33.3 H
BUN 21 H
Glucose 190 H
Total Protein 5.5 L
Albumin 3.2 L
CXR
On the frontal view, somewhat pointed defined opacity projecting over the right upper lung, as described above.
This most likely represents pneumonia.
Close follow-up is recommended. See above discussion.
NO PRIOR hospitalist admission:
ASSESSMENT & PLAN
Severe neutropenic fever
Neutropenic ( ANC 13)
- Nl eGFR > 60. Nl Cr 0.7
- No prior HX MRSA
- No prior HX GPC bacteremia
- chr pancytopenia.
- HX MDS with transitioning to AM
- ER d/w Discussed with (heme/onc).
- BCx sent
- Empiric IV CFP 2gm q8H
- c/w INSPECTOR PENETRANT Acyclovir
- Hold off prophylactic LVQ
- Heme /Onco consulted
Abn CXR ? PNA
Denies coughing
- currently on IV CFP
Severe pancytopenia
HX multiple Blood and blood products Tx
- Transfusion consent on the chart
- transfuse blood/platelet as per ER following d/w Heme/Onco
HLD
- on Atorvastatin
DVT Px: SCD
Full code
IMU
[2024-07-23] MEDS: NSS 500 IV (20:48)
--- NOTE | 2024-07-23 21:25 | PTCARENOTE ---
Pt arrived from ED via stretcher, ambulated to bed with minimal assistance and walker. aaox3, cooperative. nsr on monitor, pox 98% on RA. Denies pain or sob. oriented to room. call woods within reach.
[2024-07-23] MEDS: LIPITOR 80 MG PO (23:30)
[2024-07-23] MEDS: ZOVIRAX 400 MG PO (23:30)
[2024-07-24] VITALS (14 sets, daily range): BP systolic 121–154; BP diastolic 65–82; BMI 22.5
[2024-07-24 00:07] LABS: Urine Albumin 1+ (Neg - Trace); Urine Bilirubin Negative (Negative); Urine Character Clear (Clear); Urine Color Amber; Urine Glucose Negative (Negative); Urine Ketone Negative (Negative); Urine Leukocyte Negative (Negative); Urine Nitrite Negative (Negative); Urine Occult Blood 2+ (Negative); Urine Specific Gravity 1.015 (<1.030); Urine Urobilinogen Negative (Neg - 1+)
[2024-07-24 00:18] LABS: Urine Squamous Cell 0-2 /LPF (Few)
[2024-07-24 00:19] LABS: Urine White Cell 0-2 /HPF (0-5)
[2024-07-24] MEDS: TYLENOL 650 MG PO ×2 (00:22→20:05)
--- NOTE | 2024-07-24 05:10 | PTCARENOTE ---
Pt with 2 episodes of tachycardia since admitted to the floor. Hr increasing to 150s and coming back down quickly. asymptomatic. [facility] LOBO notified, labs ordered.
[2024-07-24 05:35] LABS: % Lymphocytes 70.4 % (20.5-51.1); % Monocytes 25.9 % (1.7-9.3); % Neutrophils 3.7 % (42.2-75.2); Absolute Lymphocytes 0.2 10^3/uL (1.2-3.4); Absolute Monocytes 0.1 10^3/uL (0.1-0.6); Hemoglobin 7.2 g/dL (13.0-18.0); Mean Corp Hgb Conc. 34.3 g/dL (33.0-37.0); Mean Corpuscular Hgb 27.6 pg (27.0-31.0); Mean Corpuscular Volume 80.5 fL (80.0-94.0); Mean Platelet Volume 11.2 fL (7.4-10.4); Nucleated Red Blood Cells % 0 % (-); Platelet Count 16 10^3/uL (130-400); Red Blood Cell Count 2.61 10^6/uL (4.70-6.10); Red Cell Dist. Width 13.6 % (11.5-14.5); White Blood Cell Count 0.3 10^3/uL (4.8-10.8)
[2024-07-24] MEDS: MAXIPIME 2000 MG IV ×3 (05:42→21:28)
[2024-07-24] MEDS: STERILE WATER FOR INJECTION 10 ML IV ×3 (05:43→21:28)
[2024-07-24 05:51] LABS: ALT (SGPT) 31 U/L (0-50); AST (SGOT) 26 U/L (17-59); Albumin 3.3 g/dl (3.5-5.0); Alkaline Phosphatase 62 U/L (38-126); Blood Urea Nitrogen 20 mg/dl (9-20); Calcium 8.3 mg/dl (8.4-10.2); Carbon Dioxide 26 mmol/L (22-30); Chloride 107 mmol/L (98-107); Estimated Creatinine Clearance 98 ml/min; Glucose 125 mg/dl (70-99); Magnesium 1.9 mg/dl (1.6-2.3); Potassium 4.2 mmol/L (3.5-5.1); Sodium 137 mmol/L (135-145); Total Bilirubin 1.7 mg/dl (0.2-1.3); Total Protein 5.6 g/dl (6.3-8.2); eGFR > 60.00
[2024-07-24] MEDS: ZOVIRAX 400 MG PO ×2 (08:44→20:05)
[2024-07-24] MEDS: ZYLOPRIM 300 MG PO (08:44)
--- NOTE | 2024-07-24 10:37 | CON.ONC ---
Addendum entered and electronically signed by Rosalia Byrne MD 07/24/24 12:10:
Cytopenias are likely to persist
Would consider discharge when afebrile x48hr and able to switch to po antibiotics
Outpatient transfusions as needed
Original Note:
Consultation
-
Date Consultation Requested: 07/23/24
Date Consultation Performed: 07/24/24
Requesting Provider: Dr Aaron Collier
Performing Provider: Dr Rosalia Byrne
Reason for Consultation: febrile neutropenia, AML
Impression
Impression
AML, on Vidaza/Venetoclax
Febrile neutropenia, suspected right pneumonia
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
Plan
Plan
Continue Cefepime
Follow cultures
Monitor CBC - transfuse (irradiated products) as clinically indicated (hgb < 7, platelets < 10/bleeding)
Await path from 07/18/24 bone marrow biopsy (done at [facility])
Will follow along
Patient History
History of Present Illness
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 He underwent BM biopsy at [facility] on 07/18/24 to assess his disease status, results pending. On 07/19/24, he spiked a fever to 102.7,
took Theraflu and tylenol, but didn't contact our office. He reached out yesterday with persistent fever, slight cough and head congestion. He was sent to the ER, where CKR suggested possible pneumonia and CBC confirmed ongoing severe neutropenia
and thrombocytopenia and anemia. He was started on Cefepime and transfused platelets for platelet count of 5.
He feels okay this am. No sputum or difficulty breathing. His appetite is decreased, but he's eating. No pain.
Past-Medical/Surgical History
Past Medical History
Past Medical History: Reports Cancer (MDS, transitioning to AML, pancytopenia , HX multiple transfusions) and Hypercholesterolemia
Past Surgical History: Reports Other (Inguinal hernia repair)
Social History
Tobacco: Non-smoker
Alcohol: None
Family History
Family History: Not pertinent
Patient Medication
�Medication �Instructions �Recorded �Confirmed �Last Taken �Type
Lactobac no.2-Bifidobac no.1-S. 1 cap PO DAILY Supplement ##0 12/31/23 07/23/24 07/23/24 History
thermo 112.5 billion cell capsule
(Visbiome)
acyclovir 400 mg tablet 400 mg PO BID ANTIVIRAL 12/31/23 07/23/24 07/23/24 History
famotidine 20 mg tablet 20 mg PO [id number] PRN NAUSEA 12/31/23 07/23/24 07/06/24 History
polyethylene glycol 3350 17 gram 17 g PO DAILYPRN PRN constipation 12/31/23 07/23/24 07/14/24 History
oral powder packet
sodium chloride 0.65 % nasal spray 1 spray intranasal BID Congestion 12/31/23 07/23/24 07/17/24 History
aerosol
zolpidem 5 mg tablet 5 mg PO HSPRN PRN insomnia 12/31/23 07/23/24 07/16/24 History
allopurinol 300 mg tablet 300 mg PO DAILY Gout #0 tabs 01/09/24 07/23/24 07/23/24 Rx
cyanocobalamin (vitamin B-12) 1,000 mcg PO DAILY supplement 30 01/09/24 07/23/24 07/23/24 Rx
1,000 mcg tablet days #30 tabs
levofloxacin 500 mg tablet 500 mg PO DAILY prophylasis #0 tabs 01/09/24 07/23/24 07/23/24 Rx
ondansetron HCl 8 mg tablet 8 mg PO Q6HPRN PRN nausea 01/23/24 07/23/24 07/02/24 History
docusate sodium 100 mg capsule 100 mg PO DAILYPRN PRN constipation 02/16/24 07/23/24 06/04/24 History
(Colace)
loratadine 10 mg tablet (Claritin) 10 mg PO DAILYPRN PRN neulasta 02/16/24 07/23/24 07/23/24 History
injection
atorvastatin 80 mg tablet 80 mg PO HS cholesterol 04/03/24 07/23/24 07/22/24 History
venetoclax 100 mg tablet 400 mg PO DIRECTED 06/26/24 07/23/24 07/08/24 History
Antineoplastic Agent
ergocalciferol (vitamin D2) 1,250 1,250 mcg PO WE vitamin D 07/23/24 07/23/24 07/18/24 History
mcg (50,000 unit) capsule deficiency
nchxiwtirjgee-EJ-fhwibgzyzonrq-guaif 15 ml PO DAILYPRN PRN COLD AND 07/23/24 07/23/24 07/22/24 History
5 mg-10 mg-325 mg-200mg/15 mL liq COUGH
(Theraflu ExpressMax Severe
Cold-Flu)
Active Medications
Generic Name Dose Route Start Last Admin
Trade Name Freq PRN Reason Stop Dose Admin
Acyclovir Sodium 400 mg 07/24/24 08:00 07/24/24 08:44
Acyclovir Sodium 200 Mg Capsule PO 08/21/24 07:59 400 mg
BID JAMAR Administration
Allopurinol 300 mg 07/24/24 08:00 07/24/24 08:44
Allopurinol 300 Mg Tablet PO 08/21/24 07:59 300 mg
DAILY JAMAR Administration
Atorvastatin Calcium 80 mg 07/23/24 22:00 07/23/24 23:30
Atorvastatin (Lipitor) 80 Mg Tablet PO 08/20/24 21:59 80 mg
HS JAMAR Administration
Cefepime HCl 2,000 mg 07/24/24 06:00 07/24/24 05:42
Cefepime Hcl 2,000 Mg/12.5 Ml Vial IV 2,000 mg
Q8H JAMAR Administration
Ondansetron HCl 8 mg 07/23/24 21:30
Ondansetron 4 Mg Tablet PO
Q6HPRN PRN
nausea
Sodium Chloride 0 flush 07/23/24 22:00
Sodium Chloride 0.9% (Flush) Syringe IV 08/20/24 21:59
PER PROTOCOL JAMAR
Sterile Water 10 ml 07/24/24 06:00 07/24/24 05:43
Sterile Water For Injection 10 Ml Vial IV 08/21/24 05:59 10 ml
Q8H JAMAR Administration
Review of Systems
-
All Other Systems: Not reviewed unless documented
Physical Exam
-
General: Well Developed, Well Nourished, No Apparent Distress, Comfortable and Conversant; Negative Respiratory Distress or Appears in Distress
HEENT: Moist Mucous Membranes; Negative Jaundice
Cardiology: Normal Sinus Rhythm
Pulmonary: Rales (few right sided rales)
GI: Soft and Normal Bowel Sounds
Musculoskeletal: No Clubbing, No Cyanosis and No Edema
Extremities: No C/C/E
Neurology: Non Focal, No Lateralizing Symptoms and No Word Finding Difficulty
Skin: Warm and Dry
Psych: Calm and Intact Judgement/Insight
Labs
Lab Results
WBC 0.3 10^3/uL (4.8-10.8) L* 07/24/24 04:59
RBC 2.61 10^6/uL (4.70-6.10) L 07/24/24 04:59
Hgb 7.2 g/dL (13.0-18.0) L 07/24/24 04:59
Hct 21.0 % (39.0-52.0) L 07/24/24 04:59
MCV 80.5 fL (80.0-94.0) 07/24/24 04:59
MCH 27.6 pg (27.0-31.0) 07/24/24 04:59
MCHC 34.3 g/dL (33.0-37.0) 07/24/24 04:59
RDW 13.6 % (11.5-14.5) 07/24/24 04:59
Plt Count 16 10^3/uL (130-400) L* D 07/24/24 04:59
MPV 11.2 fL (7.4-10.4) H 07/24/24 04:59
Abs Immat Gran (auto) 0.0 10^3/uL (0-0.05) 07/24/24 04:59
Absolute Neuts (auto) 0.0 10^3/uL (1.4-6.5) L* 07/24/24 04:59
Absolute Lymphs (auto) 0.2 10^3/uL (1.2-3.4) L 07/24/24 04:59
Absolute Monos (auto) 0.1 10^3/uL (0.1-0.6) 07/24/24 04:59
Absolute Eos (auto) 0.0 10^3/uL (0-0.7) 07/24/24 04:59
Absolute Basos (auto) 0.0 10^3/uL (0-0.2) 07/24/24 04:59
Immature Gran % 0.0 % (0-0.5) 07/24/24 04:59
Neutrophils % 3.7 % (42.2-75.2) L 07/24/24 04:59
Lymphocytes % 70.4 % (20.5-51.1) H 07/24/24 04:59
Monocytes % 25.9 % (1.7-9.3) H 07/24/24 04:59
Eosinophils % 0.0 % (0-6) 07/24/24 04:59
Basophils % 0.0 % (0-2) 07/24/24 04:59
Creatinine 0.7 mg/dL (0.7-1.3) 07/24/24 04:59
Vital Signs
Vital Signs
Temp Pulse Resp BP Pulse Ox
99.1 F 84 19 121/70 96
07/24/24 07:32 07/24/24 08:45 07/24/24 08:45 07/24/24 08:00 07/24/24 08:49
--- NOTE | 2024-07-24 11:07 | PTCARENOTE ---
Patient seen by Dr. Byrne, RN/MD reviewed medications, plan of care, antibiotic coverage with patient. Patient eating breakfast, denies pain, cooperative, laying in bed, vital signs stable. See MAR/flowsheets for further care details.
--- NOTE | 2024-07-24 11:23 | W.PN.HOSP.TC ---
Today's Communication/Plan
-
see plan
Assessment / Plan
Assessment / Plan
Gen: NAD, AAOx3.
Eyes: EOMI, PERRLA, no scleral icterus.
Neck: supple.
CV: RRR, +S1/S2, no m/r/g.
Resp: CTAB, no rales, wheezes, or rhonchi.
Abd: +BS, soft, NT, ND
Skin: No rashes.
Neuro: CN 2-12 intact, non-focal.
Psych: Normal mood and affect.
07/23/24 13:44 Nasal Swab Influenza Types A & B (MI) - Final
Negative for Influenza A & B, NAAT
Negative results must be combined with clinical observations
and patient history.
Nucleic Acid Amplification test (NAAT)performed on the
[employer] NOW platform.
CXR: On the frontal view, somewhat pointed defined opacity projecting over the right upper lung, as described above. This most likely represents pneumonia.
Acute neutropenic fever:
-likely sepsis due to RUL PNA, POA
-chronic pancytopenia due to MDS with transition to AML (on Vidaza/Venetoclax), h/o multiple transfusions, s/p 1U pRBCS, 1U plts
-cont Cefepime/Acyclovir
-ANC currently 0
-follow BCxs
-reasonable to c/s ID
Other problems:
HLD: Cont statin
FULL/SCDs
Anticipated Discharge: > 48 hours
Subjective/Interval History
-
Date of Service: July 24, 2024
No new complaints.
Objective Data
-
Labs:
Laboratory Results
07/24/24
04:59
WBC 0.3 L*
Hgb 7.2 L
Hct 21.0 L
Plt Count 16 L* D
Sodium 137
Potassium 4.2
Chloride 107
Carbon Dioxide 26
BUN 20
Creatinine 0.7
Glucose 125 H
Calcium 8.3 L
Total Bilirubin 1.7 H
AST 26
ALT 31
Alkaline Phosphatase 62
Vital Signs:
Vital Signs
Temp Pulse Resp BP Pulse Ox
99.1 F 89 29 124/71 100
07/24/24 07:32 07/24/24 11:00 07/24/24 11:00 07/24/24 10:00 07/24/24 10:30
I&O
07/23/24 07/24/24 07/25/24
06:59 06:59 06:59
Intake Total 586 / 586 480 / 480
Output Total 600 / 600
Balance - 480 / 480
--- NOTE | 2024-07-24 14:45 | CON.ID ---
Consultation
-
Date/Time Consultation Requested: July 24, 2024 1130
Date/Time Consultation Performed: July 24, 2024 1445
Requesting Provider: Dr. Joby Kamara
Performing Provider: Dr. Nelly Marte
Reason for Consultation: Neutropenic fever
Chief Complaint / Past History
Chief Complaint
Fever
History of Present Illness
74-year-old male with history of MDS with suspected transition to AML currently on treatment with Vidaza and venetoclax who presented to the hospital July 23 with fevers. He had bone marrow biopsy at [facility] last Tuesday. On he
starting to feel unwell with bilateral sinus discomfort/congestion. Initially had low-grade fever. However the fever went up to 101.5. Has mild dry cough. No nausea or vomiting. No abdominal pain or diarrhea. No urinary symptoms. On Tuesday he
called his oncologist who recommended coming to the ER yesterday. In ED temperature one 1.3, absolute neutrophil count 0, platelet 5. Chest x-ray showed possible right upper lobe infiltrate. He is currently on cefepime. He denies ill contacts.
No pets. He always wears a mask when he goes outside. No recent travel.
Past History
Additional Past Medical History:
MDS suspected progression to AML on Vidaza, Venetoclax; ppx acyclovir, levofloxacin
Chronic pancytopenia, transfusion dependent
History of small intracranial bleed after a fall
Nasal fracture after a fall
Inguinal hernia repair
Allergy History:
Penicillins Allergy (Intermediate, Verified 07/23/24 13:37)
Hives
lidocaine Allergy (Verified 07/23/24 13:37)
Itching
Medications Reviewed: Yes
Current Antibiotics:
Cefepime
Social History
Tobacco: Non-Smoker
Alcohol: None
Drug: None
Personal:
Living: With Family
Employment: Retired
Family History
Family History: Not Pertinent
Review of Systems
Review of Systems
General: Fever, Chills and Change in Appetite
HEENT: Sinus Problems; Negative Lymphadenopathy, Stiff Neck, Headache or Pharyngitis
Cardiovascular: Negative Chest Pain
Respiratory: Negative Dyspnea
Gasteroenterology: Negative Nausea, Vomiting or Diarrhea
Genital / Urological: Negative Dysuria or Flank Pain
Endocrine: Weakness
Neurological: Negative Dizziness
All systems: All other systems were reviewed and were negative
Vital Signs
Temp Pulse Resp BP Pulse Ox
99.6 F 86 24 129/82 99
07/24/24 11:05 07/24/24 14:15 07/24/24 14:15 07/24/24 14:00 07/24/24 14:15
Selected Entries
07/23/24
17:47
Temp 101.3 F H
Physical Exam
Physical Exam
Constitutional: Chronically Ill, Non-toxic and Cachetic
Head: Other (Mild bilateral maxillary sinus tenderness)
Eyes: No Conjunctival Hemorrhage and Sclera Anicteric
Pharynx: Benign
Cardiovascular: Regular Rate and S1/S2
Pulmonary: Clear
Gastrointestinal: Soft, Non Tender, Non Distended and Normal Bowel Sounds
Genito-Urinary: Negative Suprapubic Tenderness or CVA Tenderness
Extremities: Negative Edema
Neurological: AO x 3
Lab / Diagnostic Study Results
07/24/24 04:59
07/24/24 04:59
Abs Immat Gran (auto) 0.0 10^3/uL (0-0.05) 07/24/24 04:59
Absolute Neuts (auto) 0.0 10^3/uL (1.4-6.5) L* 07/24/24 04:59
Absolute Lymphs (auto) 0.2 10^3/uL (1.2-3.4) L 07/24/24 04:59
Absolute Monos (auto) 0.1 10^3/uL (0.1-0.6) 07/24/24 04:59
Absolute Basos (auto) 0.0 10^3/uL (0-0.2) 07/24/24 04:59
Immature Gran % 0.0 % (0-0.5) 07/24/24 04:59
Neutrophils % 3.7 % (42.2-75.2) L 07/24/24 04:59
Lymphocytes % 70.4 % (20.5-51.1) H 07/24/24 04:59
Monocytes % 25.9 % (1.7-9.3) H 07/24/24 04:59
Eosinophils % 0.0 % (0-6) 07/24/24 04:59
Basophils % 0.0 % (0-2) 07/24/24 04:59
Lactic Acid Cancelled 07/23/24 21:30
Ur Squamous Epith Cells 0-2 /LPF (Few) 07/23/24 23:42
Microbiology Results
Micro:
07/23/24 13:44 Blood Culture - Preliminary
Blood/Venous No Growth in 24 hours- Final report to follow
07/23/24 17:42 Blood Culture - Pending
Blood/Venous
07/23/24 13:44 Influenza Types A & B (MI) - Final
Nasal Swab Negative for Influenza A & B, NAAT
Negative results must be combined with clinical observations
and patient history.
Nucleic Acid Amplification test (NAAT)performed on the
[employer] NOW platform.
07/23/24 CXR: On the frontal view, somewhat pointed defined opacity projecting over the right upper lung, as described above. This most likely represents pneumonia.
Assessment / Plan
# Neutropenic fever
# Acute Sinusitis
# Probable PNA
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
# Chronic neutropenia/pancytopenia - transfusion dependent
- COVID/Flu neg
-Blood cx neg to date
- Check urine legionella ag (doubt as pt on levofloxacin ppx)
- Check urine strep pneumo ag.
- Ordered CT sinus
- Agree with cefepime
- Follow temps.
[2024-07-24] MEDS: LIPITOR 80 MG PO (21:28)
--- NOTE | 2024-07-24 22:08 | PTCARENOTE ---
received patient from previous RN. Patient is AAOx3. NSR on monitor. 96% on RA. Patient had a 101.7 fever at 1999, TT [employer] for prn order for fever. Tylenol ordered and given for fever. Patient ambulating to bathroom with a x1 assist with walker.
assessment and vital signs as documented. Patient resting in bed with call woods in reach.
[2024-07-25] VITALS (17 sets, daily range): BP systolic 99–159; BP diastolic 48–82; BMI 22.3
[2024-07-25] MEDS: MAXIPIME 2000 MG IV ×3 (05:08→21:00)
[2024-07-25] MEDS: STERILE WATER FOR INJECTION 10 ML IV ×3 (05:09→21:00)
[2024-07-25 06:01] LABS: Hemoglobin 6.3 g/dL (13.0-18.0); Mean Corpuscular Hgb 27.8 pg (27.0-31.0); Mean Corpuscular Volume 79.3 fL (80.0-94.0); Mean Platelet Volume 9.2 fL (7.4-10.4); Platelet Count 5 10^3/uL (130-400); Red Blood Cell Count 2.27 10^6/uL (4.70-6.10); Red Cell Dist. Width 13.7 % (11.5-14.5); White Blood Cell Count 0.2 10^3/uL (4.8-10.8)
--- NOTE | 2024-07-25 06:14 | W.PN.UPDATE ---
Update Note
Progress Note Update
-Hgb is 6.3, Hct is 18.0 and platelets are 5.0 this am
one unit of blood and platelets ordered
[2024-07-25 06:15] LABS: Blood Urea Nitrogen 19 mg/dl (9-20); Calcium 8.1 mg/dl (8.4-10.2); Carbon Dioxide 28 mmol/L (22-30); Chloride 103 mmol/L (98-107); Estimated Creatinine Clearance 99 ml/min; Glucose 137 mg/dl (70-99); Potassium 4.4 mmol/L (3.5-5.1); Sodium 136 mmol/L (135-145); eGFR > 60.00
--- NOTE | 2024-07-25 07:38 | PTCARENOTE ---
This RN called and spoke to blood bank who stated to fill out the pink paper for patients blood transfusion due to it being CMV negative. 2 RN cosign completed with Amee Campoverde RN and pink paper filled out appropriately. Care ongoing.
[2024-07-25] MEDS: ZYLOPRIM 300 MG PO (07:57)
[2024-07-25] MEDS: ZOVIRAX 400 MG PO ×2 (07:57→20:57)
--- NOTE | 2024-07-25 08:18 | W.PN.HOSP.TC ---
Today's Communication/Plan
-
see plan
Assessment / Plan
Assessment / Plan
Gen: remains NAD, AAOx3.
Eyes: EOMI, PERRLA, no scleral icterus.
Neck: supple.
CV: remains RRR, +S1/S2, no m/r/g.
Resp: remains CTAB, no rales, wheezes, or rhonchi.
Abd: +BS, soft, NT, ND
Skin: No rashes.
Neuro: CN 2-12 intact, non-focal.
Psych: Normal mood and affect.
07/23/24 17:42 Blood/Venous Blood Culture - Preliminary
No Growth in 24 hours- Final report to follow
07/24/24 16:27 Urine Streptococcus pneumoniae Antigen (M - Final
Negative for Streptococcus pneumoniae antigen.
A negative result does not exclude infection with
Streptococcus pneumoniae. Clinical correlation is
recommended.
07/24/24 16:27 Urine Legionella Urinary Antigen - Final
Negative for Legionella pneumophila Serogroup 1 antigen.
A negative result does not rule out the possiblity of
Legionella infection due to other serogroups or species of
Legionella. Clinical correlation is recommended.
07/23/24 13:44 Blood/Venous Blood Culture - Preliminary
No Growth in 24 hours- Final report to follow
07/23/24 13:44 Nasal Swab Influenza Types A & B (MI) - Final
Negative for Influenza A & B, NAAT
Negative results must be combined with clinical observations
and patient history.
Nucleic Acid Amplification test (NAAT)performed on the
Backpack platform.
CXR: On the frontal view, somewhat pointed defined opacity projecting over the right upper lung, as described above. This most likely represents pneumonia.
Acute neutropenic fever:
-likely sepsis due to RUL PNA, POA
-chronic pancytopenia due to MDS with transition to AML (on Vidaza/Venetoclax), h/o multiple transfusions, transfuse another 1U pRBCS and 1U plts today
-cont Cefepime/Acyclovir as per ID
-ANC currently near 0
-BCxs NGTD
-ONC following, discussed with Dr. Carranza
Other problems:
HLD: Cont statin
FULL/SCDs
Situation is one of very high risk.
Anticipated Discharge: > 48 hours
Subjective/Interval History
-
Date of Service: July 25, 2024
No new complaints.
Objective Data
-
Labs:
Laboratory Results
07/25/24
05:37
WBC 0.2 L*
Hgb 6.3 L*
Hct 18.0 L*
Plt Count 5 L* D
Sodium 136
Potassium 4.4
Chloride 103
Carbon Dioxide 28
BUN 19
Creatinine 0.7
Glucose 137 H
Calcium 8.1 L
Vital Signs:
Vital Signs
Temp Pulse Resp BP Pulse Ox
99.1 F 94 24 141/80 97
07/25/24 07:50 07/25/24 08:00 07/25/24 08:00 07/25/24 08:00 07/25/24 08:00
I&O
07/24/24 07/25/24 07/26/24
06:59 06:59 06:59
Intake Total 586 / 586 720 / 720
Output Total 600 / 600 1350 / 1350 200 / 200
Balance -14 14 -630 / -630 -200 / -200
--- NOTE | 2024-07-25 09:58 | PTCARENOTE ---
Patient AOx3. Patient has flat affect. NSR with PAC's on monitor. VSS. Patient on RA with SpO2 greater than 92%. Assist x1 with RW when OOB. Patient utilizes urinal. Neutropenic precautions maintained. Call woods within reach, bed in lowest position,
and bed of wheels locked.
--- NOTE | 2024-07-25 10:19 | PTCARENOTE ---
1 unit of PRBC's infused per order. VSS. [place] slip completed from blood bank. Care ongoing.
--- NOTE | 2024-07-25 10:24 | W.PN.ONC2 ---
Today's Communication / Plan
-
supportive care with transfusion, ABx while awaiting culture results. No G-CSF.
Impression
Impression
AML, on Vidaza/Venetoclax
Febrile neutropenia, suspected right pneumonia
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
Plan
Plan
Continue Cefepime. Appreciate ID consult and management.
Follow cultures
Monitor CBC - transfuse (irradiated products) as clinically indicated (hgb < 7, platelets < 10/bleeding)
Await path from 07/18/24 bone marrow biopsy (done at [facility])
Will follow along
Subjective/Objective
Chief Complaint
ACS Heme Onc
Subjective
No complaints. Getting PRBC now.
Vital Signs:
Vital Signs
Temp Pulse Resp BP Pulse Ox
98.9 F 89 16 133/73 97
07/25/24 10:17 07/25/24 10:00 07/25/24 10:00 07/25/24 10:00 07/25/24 10:00
Lab Results:
Laboratory Data
WBC 0.2 10^3/uL (4.8-10.8) L* 07/25/24 05:37
Hgb 6.3 g/dL (13.0-18.0) L* 07/25/24 05:37
Plt Count 5 10^3/uL (130-400) L* D 07/25/24 05:37
eGFR > 60.00 07/25/24 05:37
Physical Exam
HEENT: No Jaundice
Cardiology: S1 and S2
Pulmonary: Clear
GI: Soft
--- NOTE | 2024-07-25 12:00 | PTCARENOTE ---
received patient from previous RN. Pt resting comfortably in bed, AAOX3. states he uses rollator to get out of bed, but declined to get out of bed at this time. SR on telemetry heart rate 80-90s. pulses palpable. no edema. pt on room air, sat 97%.
lung sounds clear diminished in bases. active bowel sounds, reports had normal bowel movement yesterday. poor appetite. voiding in urinal. pt updated on plan of care. see worklist for full nursing assessment and interventions.
--- NOTE | 2024-07-25 12:55 | W.PN.ID1 ---
Date of Service
Date of Service: July 25, 2024
Today's Communication
Continue cefepime.
Assessment / Plan
# Neutropenic fever
# Acute Sinusitis: no fungus ball in CT sinus
# Probable PNA
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
# Chronic neutropenia/pancytopenia - transfusion dependent
- COVID/Flu neg
-Blood cx neg to date
- urine legionella ag and strep pneumo Ag neg
- Continue cefepime d3
- Follow temps.
Chief Complaint
-: Fever
Subjective / Review of Systems
No new symptoms. Still with sinus pressure. No diarrhea.
Vital Signs / Physical Exam
Vital Signs
Vital Signs
Temp Pulse Resp BP Pulse Ox
99.0 F 89 26 134/74 96
07/25/24 10:54 07/25/24 11:15 07/25/24 11:15 07/25/24 10:54 07/25/24 11:15
Selected Entries
07/24/24
19:31
Temp 101.2 F H
Physical Exam
Constitutional: No Acute Distress and Comfortable
Head: Other (mild maxillary sinus tenderness bilaterally)
Eyes: No Conjunctival Hemorrhage and Sclera Anicteric
Cardiovascular: Regular Rate and S1/S2
Pulmonary: Clear
Gastrointestinal: Soft, Non Tender, Non Distended and Normal Bowel Sounds
Extremities: Negative Edema
Neurological: AO x 3
Objective Data
Lab Data
Lab Results
07/25/24 05:37
07/25/24 05:37
Estimated Creat Clear 99 ml/min 07/25/24 05:37
Lactic Acid Cancelled 07/23/24 21:30
Total Bilirubin 1.7 mg/dl (0.2-1.3) H 07/24/24 04:59
AST 26 U/L (17-59) 07/24/24 04:59
ALT 31 U/L (0-50) 07/24/24 04:59
Alkaline Phosphatase 62 U/L (38-126) 07/24/24 04:59
Most recent labs reviewed.
Micro Results:
07/24/24 22:23 Blood Culture - Pending
Blood/Venous
07/24/24 21:40 Blood Culture - Pending
Blood/Venous
07/23/24 17:42 Blood Culture - Preliminary
Blood/Venous No Growth in 24 hours- Final report to follow
07/24/24 16:27 Streptococcus pneumoniae Antigen (M - Final
Urine Negative for Streptococcus pneumoniae antigen.
A negative result does not exclude infection with
Streptococcus pneumoniae. Clinical correlation is
recommended.
07/24/24 16:27 Legionella Urinary Antigen - Final
Urine Negative for Legionella pneumophila Serogroup 1 antigen.
A negative result does not rule out the possiblity of
Legionella infection due to other serogroups or species of
Legionella. Clinical correlation is recommended.
07/23/24 13:44 Blood Culture - Preliminary
Blood/Venous No Growth in 24 hours- Final report to follow
07/23/24 13:44 Influenza Types A & B (MI) - Final
Nasal Swab Negative for Influenza A & B, NAAT
Negative results must be combined with clinical observations
and patient history.
Nucleic Acid Amplification test (NAAT)performed on the
[employer] platform.
07/23/24 CXR: On the frontal view, somewhat pointed defined opacity projecting over the right upper lung, as described above. This most likely represents pneumonia.
07/24/[address]: Overall moderate nonacute sinusitis.Bilateral patent ostiomeatal complexes.Moderate right nasal septal deviation.
--- NOTE | 2024-07-25 16:03 | CM ---
Addendum entered by Lyn Jenkins RN 07/25/24 16:23:
Spoke with Jocelyne Duron [facility]; the patient was at [facility] after fall with SAH & facial fractures then transferred to [place] in Nov 2023 and sent [facility].
Original Note:
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 Room air. Receiving IV Abx. Transfusions with PRBCs & platelets. Per nurse; A/O, assist of 1.
Met with patient who resides with his in a 2 story house with 1 outside step and first floor bedroom/bath.
The patient was independent in ADLs and ambulation.
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
The patient has a son Jose Maria who resides nearby.
DME - rollator, BP cuff, w/c
Prior [facility]
Prior [facility]
PCP - Fide Langford
Pharmacy - [facility]
Plan follow patient's clinical status and mobility.
Plan home possibly with home health.
[2024-07-25] MEDS: TYLENOL 650 MG PO (16:55)
[2024-07-25] MEDS: LIPITOR 80 MG PO (21:00)
[2024-07-26] VITALS (10 sets, daily range): BP systolic 99–152; BP diastolic 49–79; BMI 22.2; BMI 22.0
--- NOTE | 2024-07-26 02:46 | PTCARENOTE ---
Patient AAOx3, pleasant. Pt using rolling walker to ambulate to the bathroom. Pt washed up in the bathroom. Pt in the chair for a few hours. Pt had small BM, otherwise voiding using the urinal. NSR on the monitor. 94% on room air. SCDs on. Lungs are
clear. Pt reports having a poor appetite. Pt denies any pain or discomfort. Assessment and vital signs as charted. Pt using call woods appropriately, call woods within reach.
[2024-07-26] MEDS: TYLENOL 650 MG PO (03:29)
--- NOTE | 2024-07-26 03:33 | PTCARENOTE ---
Patient temperature 101.9. PRN Tylenol administered. Pt denies any symptoms.
[2024-07-26] MEDS: MAXIPIME 2000 MG IV ×3 (05:10→21:47)
[2024-07-26] MEDS: STERILE WATER FOR INJECTION 10 ML IV ×3 (05:11→21:47)
[2024-07-26 06:10] LABS: Hematocrit 20.6 % (39.0-52.0); Hemoglobin 7.2 g/dL (13.0-18.0); Mean Corpuscular Hgb 27.8 pg (27.0-31.0); Mean Corpuscular Volume 79.5 fL (80.0-94.0); Mean Platelet Volume 10.2 fL (7.4-10.4); Platelet Count 14 10^3/uL (130-400); Red Blood Cell Count 2.59 10^6/uL (4.70-6.10); Red Cell Dist. Width 13.3 % (11.5-14.5); White Blood Cell Count 0.2 10^3/uL (4.8-10.8)
[2024-07-26 06:14] LABS: Blood Urea Nitrogen 21 mg/dl (9-20); Carbon Dioxide 29 mmol/L (22-30); Chloride 102 mmol/L (98-107); Estimated Creatinine Clearance 99 ml/min; Glucose 140 mg/dl (70-99); Potassium 4.3 mmol/L (3.5-5.1); Sodium 136 mmol/L (135-145); eGFR > 60.00
--- NOTE | 2024-07-26 08:17 | W.PN.HOSP.TC ---
Today's Communication/Plan
-
see plan
Assessment / Plan
Assessment / Plan
Gen: continues to remain NAD, AAOx3.
Eyes: EOMI, PERRLA, no scleral icterus.
Neck: supple.
CV: continues to remain RRR, +S1/S2, no m/r/g.
Resp: continues to remain CTAB, no rales, wheezes, or rhonchi.
Abd: +BS, soft, NT, ND
Skin: No rashes.
Neuro: CN 2-12 intact, non-focal.
Psych: Normal mood and affect.
07/24/24 22:23 Blood/Venous Blood Culture - Preliminary
No Growth in 24 hours- Final report to follow
07/24/24 21:40 Blood/Venous Blood Culture - Preliminary
No Growth in 24 hours- Final report to follow
07/23/24 17:42 Blood/Venous Blood Culture - Preliminary
No Growth in 48 hours- Final report to follow
07/23/24 13:44 Blood/Venous Blood Culture - Preliminary
No Growth in 48 hours- Final report to follow
07/24/24 16:27 Urine Streptococcus pneumoniae Antigen (M - Final
Negative for Streptococcus pneumoniae antigen.
A negative result does not exclude infection with
Streptococcus pneumoniae. Clinical correlation is
recommended.
07/24/24 16:27 Urine Legionella Urinary Antigen - Final
Negative for Legionella pneumophila Serogroup 1 antigen.
A negative result does not rule out the possiblity of
Legionella infection due to other serogroups or species of
Legionella. Clinical correlation is recommended.
07/23/24 13:44 Nasal Swab Influenza Types A & B (MI) - Final
Negative for Influenza A & B, NAAT
Negative results must be combined with clinical observations
and patient history.
Nucleic Acid Amplification test (NAAT)performed on the
[employer] platform.
CXR: On the frontal view, somewhat pointed defined opacity projecting over the right upper lung, as described above. This most likely represents pneumonia.
Acute neutropenic fever:
-likely sepsis due to RUL PNA, POA
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
-cont Cefepime/Acyclovir as per ID
-ANC currently near 0
-remains febrile
-BCxs NGTD
-ONC following, discussed with Dr. Hawk
Other problems:
HLD: Cont statin
FULL/SCDs
Situation is one of very high risk.
Anticipated Discharge: > 48 hours
Subjective/Interval History
-
Date of Service: July 26, 2024
Pt without new complaints.
Objective Data
-
Labs:
Laboratory Results
07/26/24
05:31
WBC 0.2 L*
Hgb 7.2 L
Hct 20.6 L*
Plt Count 14 L* D
Sodium 136
Potassium 4.3
Chloride 102
Carbon Dioxide 29
BUN 21 H
Creatinine 0.7
Glucose 140 H
Calcium 8.0 L
Vital Signs:
Vital Signs
Temp Pulse Resp BP Pulse Ox
98.3 F 79 23 121/69 93
07/26/24 07:00 07/26/24 06:00 07/26/24 06:00 07/26/24 06:00 07/26/24 02:43
I&O
07/25/24 07/26/24 07/27/24
06:59 06:59 06:59
Intake Total 720 / 720 1108 / 1108
Output Total 1350 / 1350 1350 / 1350
Balance -630 / -630 -242 / -242
--- NOTE | 2024-07-26 08:59 | W.PN.ONC2 ---
Today's Communication / Plan
-
.
Impression
Impression
AML, on Vidaza/Venetoclax
Febrile neutropenia, suspected right pneumonia +/- sinusitis
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
Plan
Plan
ABX per ID
Follow cultures
daily CBC
transfuse Hgb <7 or as needed for sxs anemia, platelets <20 in setting of neutropenic fever (irradiated products)
Await path from 07/18/24 bone marrow biopsy (done at [place])
Will follow along
Subjective/Objective
Subjective
no new complaints
denies over bleeding
Vital Signs:
Vital Signs
Temp Pulse Resp BP Pulse Ox
98.3 F 79 23 121/69 93
07/26/24 07:00 07/26/24 06:00 07/26/24 06:00 07/26/24 06:00 07/26/24 02:43
Lab Results:
Laboratory Data
WBC 0.2 10^3/uL (4.8-10.8) L* 07/26/24 05:31
Hgb 7.2 g/dL (13.0-18.0) L 07/26/24 05:31
Plt Count 14 10^3/uL (130-400) L* D 07/26/24 05:31
eGFR > 60.00 07/26/24 05:31
Physical Exam
HEENT: Moist Mucous Membranes; No Jaundice
Cardiology: Normal Sinus Rhythm
Pulmonary: Clear
GI: Soft
Extremities: Pulses Present; No Edema
[2024-07-26] MEDS: ZOVIRAX 400 MG PO ×2 (09:14→20:21)
[2024-07-26] MEDS: ZYLOPRIM 300 MG PO (09:14)
--- NOTE | 2024-07-26 11:25 | W.PN.ID1 ---
Date of Service
Date of Service: July 26, 2024
Today's Communication
- check BOTTOM CAGER swab for respiratory virus pcr panel.
- Ordered CT chest (eval for aspergillosis), a/p with IV and po contrast
Assessment / Plan
# Neutropenic fever - persists
# Acute Sinusitis: no fungus ball in CT sinus
# Probable PNA
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
# Chronic neutropenia/pancytopenia - transfusion dependent
- COVID/Flu neg
-Blood cx neg to date
- urine legionella ag and strep pneumo Ag neg
-UA neg
-Fever persists.
- check BOTTOM CAGER swab for respiratory virus pcr panel.
- Ordered CT chest (eval for aspergillosis), a/p with IV and po contrast
- Continue cefepime d4
- Follow temps.
Chief Complaint
-: Fever
Subjective / Review of Systems
Sinus pressure better.
Mild non-productive cough stable.
No abd pain/diarrhea. No urine sxs.
Vital Signs / Physical Exam
Vital Signs
Vital Signs
Temp Pulse Resp BP Pulse Ox
98.3 F 79 23 121/69 93
07/26/24 07:00 07/26/24 06:00 07/26/24 06:00 07/26/24 06:00 07/26/24 02:43
Selected Entries
07/26/24
03:01
Temp 101.9 F H
Physical Exam
Constitutional: No Acute Distress and Comfortable
Head: Other (No frontal or maxillary sinus tenderness)
Eyes: No Conjunctival Hemorrhage and Sclera Anicteric
Cardiovascular: Regular Rate and S1/S2
Pulmonary: Clear
Gastrointestinal: Soft, Non Tender, Non Distended and Normal Bowel Sounds
Extremities: Negative Edema
Neurological: AO x 3
Objective Data
Lab Data
Lab Results
07/26/24 05:31
07/26/24 05:31
Estimated Creat Clear 99 ml/min 07/26/24 05:31
Lactic Acid Cancelled 07/23/24 21:30
Total Bilirubin 1.7 mg/dl (0.2-1.3) H 07/24/24 04:59
AST 26 U/L (17-59) 07/24/24 04:59
ALT 31 U/L (0-50) 07/24/24 04:59
Alkaline Phosphatase 62 U/L (38-126) 07/24/24 04:59
Most recent labs reviewed.
Micro Results:
07/23/24 17:42 Blood Culture - Preliminary
Blood/Venous No Growth in 48 hours- Final report to follow
07/24/24 22:23 Blood Culture - Preliminary
Blood/Venous No Growth in 24 hours- Final report to follow
07/24/24 21:40 Blood Culture - Preliminary
Blood/Venous No Growth in 24 hours- Final report to follow
07/23/24 13:44 Blood Culture - Preliminary
Blood/Venous No Growth in 48 hours- Final report to follow
07/24/24 16:27 Streptococcus pneumoniae Antigen (M - Final
Urine Negative for Streptococcus pneumoniae antigen.
A negative result does not exclude infection with
Streptococcus pneumoniae. Clinical correlation is
recommended.
07/24/24 16:27 Legionella Urinary Antigen - Final
Urine Negative for Legionella pneumophila Serogroup 1 antigen.
A negative result does not rule out the possiblity of
Legionella infection due to other serogroups or species of
Legionella. Clinical correlation is recommended.
07/23/24 13:44 Influenza Types A & B (MI) - Final
Nasal Swab Negative for Influenza A & B, NAAT
Negative results must be combined with clinical observations
and patient history.
Nucleic Acid Amplification test (NAAT)performed on the
[employer] platform.
07/23/24 CXR: On the frontal view, somewhat pointed defined opacity projecting over the right upper lung, as described above. This most likely represents pneumonia.
07/24/[address]: Overall moderate nonacute sinusitis.Bilateral patent ostiomeatal complexes.Moderate right nasal septal deviation.
[2024-07-26] MEDS: OMNIPAQUE 50 ML PO (12:31)
--- NOTE | 2024-07-26 14:03 | PN.CDI ---
Addendum entered and electronically signed by Joby Kamara MD 07/27/24 13:07:
Documentation is complete
Original Note:
CDI
- -
CDI:
Physician Documentation Request
Admit Date: 07/23/24 20:52
Dear Doctor Anh,
Patient admitted with acute neutropenic fever.
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
Please provide in your note the likely etiology/etiologies of the chronic pancytopenia:
Multifactorial due to MDS with transition to AML and chemo (Vidaza)
MDS with transition to AML only
Other
Use of terms such as suspected, likely, concern for, or probable (associated with a specific diagnosis that is being evaluated, monitored, or treated as if it exists) are acceptable and can be coded in the inpatient setting, when documented at the
time of discharge.
Thank you,
Darcy PALUMBO,RN,CCDS
CDI Specialist
Available via [place] text
Please use your independent medical judgment in providing your response.
--- NOTE | 2024-07-26 18:24 | PTCARENOTE ---
received pt as transfer from IMU to room 329. Pt AOx3, was able to ambulate from stretcher to his bed using RW, pt OOB as tolerated, 1 assist/standby. Oriented to room, dinner meal diverted to new room. Pleasant, able to make his needs known.
Neutropenic precautions. VSS, bed in lowest position, call woods within reach. Fall risk, yellow band in place, magnet on door. Follow plan of care.
--- NOTE | 2024-07-26 19:20 | PTCARENOTE ---
Late entry: CT scan completed today, 1 unit platelets given as ordered. Remains on IV Antibx. Supervision ambulating to bathroom with walker. Pleasant denies pain. Transferred to 329 this pm.
[2024-07-26] MEDS: LIPITOR 80 MG PO (21:47)
[2024-07-27] MEDS: TYLENOL 650 MG PO ×2 (00:02→16:03)
[2024-07-27 04:13] VITALS: BMI 21.5
[2024-07-27] MEDS: MAXIPIME 2000 MG IV ×3 (06:07→21:40)
[2024-07-27] MEDS: STERILE WATER FOR INJECTION 10 ML IV ×3 (06:08→21:39)
[2024-07-27 07:30] VITALS: BP 119/66
--- NOTE | 2024-07-27 08:29 | W.PN.ONC2 ---
Today's Communication / Plan
-
.
Impression
Impression
AML, on Vidaza/Venetoclax
Febrile neutropenia, suspected right pneumonia +/- sinusitis+/- acute cystitis
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
Plan
Plan
ABX per ID
Follow cultures
daily CBC
transfuse Hgb <7 or as needed for sxs anemia, platelets <20 in setting of neutropenic fever (irradiated products)
Await path from 07/18/24 bone marrow biopsy (done at [facility])
Will follow along
Subjective/Objective
Subjective
Tmax 100.5F
mild epistaxis this morning
Vital Signs:
Vital Signs
Temp Pulse Resp BP Pulse Ox
98.4 F 97 20 118/68 93
07/27/24 03:00 07/26/24 23:00 07/26/24 23:00 07/26/24 23:00 07/26/24 23:00
Lab Results:
Laboratory Data
WBC 0.2 10^3/uL (4.8-10.8) L* 07/26/24 05:31
Hgb 7.2 g/dL (13.0-18.0) L 07/26/24 05:31
Plt Count 14 10^3/uL (130-400) L* D 07/26/24 05:31
eGFR > 60.00 07/26/24 05:31
Physical Exam
HEENT: Moist Mucous Membranes; No Jaundice
Cardiology: Normal Sinus Rhythm
Pulmonary: Clear
GI: Soft
Extremities: Pulses Present; No Edema
Orders
Orders
Orders From Last 24 Hours
07/26/24 12:24
Blood Bank Products [* Blood Bank Products] Routine
[2024-07-27] MEDS: ZYLOPRIM 300 MG PO (09:07)
[2024-07-27] MEDS: ZOVIRAX 400 MG PO ×2 (09:08→21:40)
[2024-07-27 09:25] LABS: % Lymphocytes 58.3 % (20.5-51.1); % Monocytes 33.3 % (1.7-9.3); % Neutrophils 8.4 % (42.2-75.2); Absolute Lymphocytes 0.1 10^3/uL (1.2-3.4); Hemoglobin 7.2 g/dL (13.0-18.0); Mean Corp Hgb Conc. 34.3 g/dL (33.0-37.0); Mean Corpuscular Hgb 27.9 pg (27.0-31.0); Mean Corpuscular Volume 81.4 fL (80.0-94.0); Mean Platelet Volume 11.4 fL (7.4-10.4); Nucleated Red Blood Cells % 0 % (-); Platelet Count 12 10^3/uL (130-400); Red Blood Cell Count 2.58 10^6/uL (4.70-6.10); Red Cell Dist. Width 13.5 % (11.5-14.5); White Blood Cell Count 0.1 10^3/uL (4.8-10.8)
--- NOTE | 2024-07-27 11:02 | W.PN.HOSP.TC ---
Today's Communication/Plan
-
see plan
Assessment / Plan
Assessment / Plan
Gen: continues to remain NAD, AAOx3.
Eyes: EOMI, PERRLA, no scleral icterus.
Neck: supple.
CV: continues to remain RRR, +S1/S2, no m/r/g.
Resp: continues to remain CTAB, no rales, wheezes, or rhonchi.
Abd: +BS, soft, NT, ND
Skin: No rashes.
Neuro: CN 2-12 intact, non-focal.
Psych: Normal mood and affect.
07/24/24 22:23 Blood/Venous Blood Culture - Preliminary
No Growth in 24 hours- Final report to follow
07/24/24 21:40 Blood/Venous Blood Culture - Preliminary
No Growth in 24 hours- Final report to follow
07/23/24 17:42 Blood/Venous Blood Culture - Preliminary
No Growth in 48 hours- Final report to follow
07/23/24 13:44 Blood/Venous Blood Culture - Preliminary
No Growth in 48 hours- Final report to follow
07/24/24 16:27 Urine Streptococcus pneumoniae Antigen (M - Final
Negative for Streptococcus pneumoniae antigen.
A negative result does not exclude infection with
Streptococcus pneumoniae. Clinical correlation is
recommended.
07/24/24 16:27 Urine Legionella Urinary Antigen - Final
Negative for Legionella pneumophila Serogroup 1 antigen.
A negative result does not rule out the possiblity of
Legionella infection due to other serogroups or species of
Legionella. Clinical correlation is recommended.
07/23/24 13:44 Nasal Swab Influenza Types A & B (MI) - Final
Negative for Influenza A & B, NAAT
Negative results must be combined with clinical observations
and patient history.
Nucleic Acid Amplification test (NAAT)performed on the
[employer] platform.
CXR: On the frontal view, somewhat pointed defined opacity projecting over the right upper lung, as described above. This most likely represents pneumonia.
CT C/A/P:
1. Multifocal pneumonia, worst in the right upper and left lower lobes. Recommend follow-up imaging after treatment to rule out underlying neoplasm.
2. Questionable mild acute cystitis.
Acute neutropenic fever and sepsis (POA) due to multifocal PNA:
-likely sepsis due to RUL PNA, POA
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
-cont Cefepime/Acyclovir as per ID
-ANC currently near 0
-remains febrile
-BCxs NGTD
-ONC following
Other problems:
HLD: Cont statin
FULL/SCDs
Anticipated Discharge: > 48 hours
Subjective/Interval History
-
Date of Service: July 27, 2024
Patient reports a small bout of mopped assist earlier this morning.
Objective Data
-
Labs:
Laboratory Results
07/27/24
08:54
WBC 0.1 L*
Hgb 7.2 L
Hct 21.0 L
Plt Count 12 L*
Vital Signs:
Vital Signs
Temp Pulse Resp BP Pulse Ox
99.2 F 87 16 119/66 96
07/27/24 07:30 07/27/24 07:30 07/27/24 07:30 07/27/24 07:30 07/27/24 07:30
I&O
07/26/24 07/27/24 07/28/24
06:59 06:59 06:59
Intake Total 1108 / 1108 298 / 298
Output Total 1350 / 1350 800 / 800 200 / 200
Balance -242 / -242 -502 / -502 -200 / -200
--- NOTE | 2024-07-27 11:13 | W.PN.ID1 ---
Date of Service
Date of Service: July 27, 2024
Today's Communication
Start micafungin.
Assessment / Plan
# Neutropenic fever - persists
# Multifocal PNA
# Acute Sinusitis: no fungus ball in CT sinus
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
# Chronic neutropenia/pancytopenia - transfusion dependent
- COVID/Flu neg
-Blood cx neg to date
- urine legionella ag and strep pneumo Ag neg
-UA neg
- respiratory virus pcr panel neg
- Fever persists.
- CT c/a/p w IV and po contrast: Multifocal pneumonia, worst in the right upper and left lower lobes. Recommend follow-up imaging after treatment to rule out underlying neoplasm.
- Concern for fungal pneumonia as pt was unable to take antifungal ppx.
- Check Aspergillosis galactomannan assay and Fungitell
- Start micafungin.
- Continue cefepime for now (d5)
- Follow temps
Chief Complaint
-: Fever and Pneumonia
Subjective / Review of Systems
No new symptoms. Nonproductive cough stable.
No rectal discomfort
Vital Signs / Physical Exam
Vital Signs
Vital Signs
Temp Pulse Resp BP Pulse Ox
99.2 F 87 16 119/66 96
07/27/24 07:30 07/27/24 07:30 07/27/24 07:30 07/27/24 07:30 07/27/24 07:30
Selected Entries
07/26/24
23:00
Temp 100.5 F H
Physical Exam
Constitutional: No Acute Distress
Head: Other (No frontal or maxillary sinus tenderness)
Eyes: No Conjunctival Hemorrhage and Sclera Anicteric
Cardiovascular: Regular Rate and S1/S2
Pulmonary: Clear
Gastrointestinal: Soft, Non Tender, Non Distended and Normal Bowel Sounds
Extremities: Negative Edema
Neurological: AO x 3
Objective Data
Lab Data
Lab Results
07/27/24 08:54
07/26/24 05:31
Estimated Creat Clear 99 ml/min 07/26/24 05:31
Lactic Acid Cancelled 07/23/24 21:30
Total Bilirubin 1.7 mg/dl (0.2-1.3) H 07/24/24 04:59
AST 26 U/L (17-59) 07/24/24 04:59
ALT 31 U/L (0-50) 07/24/24 04:59
Alkaline Phosphatase 62 U/L (38-126) 07/24/24 04:59
Most recent labs reviewed.
Micro Results:
07/23/24 17:42 Blood Culture - Preliminary
Blood/Venous No Growth in 72 hours- Final report to follow
07/24/24 22:23 Blood Culture - Preliminary
Blood/Venous No Growth in 48 hours- Final report to follow
07/24/24 21:40 Blood Culture - Preliminary
Blood/Venous No Growth in 48 hours- Final report to follow
07/26/24 12:21 Influenza Type A (PCR) - Final
Nasalpharynx Not Detected
Influenza Type A (H1) (PCR) - Final
Not Detected
Influenza Type A (H3) (PCR) - Final
Not Detected
Influenza Type B (PCR) - Final
Not Detected
Resp Syncytial Virus Type A (PCR) - Final
Not Detected
Resp Syncytial Virus Type B (PCR) - Final
Not Detected
Adenovirus DNA (PCR) - Final
Not Detected
Human Metapneumovirus (PCR) - Final
Not Detected
Parainfluenza Virus Type 1 (PCR) - Final
Not Detected
Parainfluenza Virus Type 2 (PCR) - Final
Not Detected
Parainfluenza Virus Type 3 (PCR) - Final
Not Detected
Parainfluenza Virus Type 4 - Final
Not Detected
Rhinovirus (PCR) - Final
Not Detected
07/23/24 13:44 Blood Culture - Preliminary
Blood/Venous No Growth in 72 hours- Final report to follow
07/24/24 16:27 Streptococcus pneumoniae Antigen (M - Final
Urine Negative for Streptococcus pneumoniae antigen.
A negative result does not exclude infection with
Streptococcus pneumoniae. Clinical correlation is
recommended.
07/24/24 16:27 Legionella Urinary Antigen - Final
Urine Negative for Legionella pneumophila Serogroup 1 antigen.
A negative result does not rule out the possiblity of
Legionella infection due to other serogroups or species of
Legionella. Clinical correlation is recommended.
07/23/24 13:44 Influenza Types A & B (MI) - Final
Nasal Swab Negative for Influenza A & B, NAAT
Negative results must be combined with clinical observations
and patient history.
Nucleic Acid Amplification test (NAAT)performed on the
[employer] platform.
07/23/24 CXR: On the frontal view, somewhat pointed defined opacity projecting over the right upper lung, as described above. This most likely represents pneumonia.
07/24/[address]: Overall moderate nonacute sinusitis.Bilateral patent ostiomeatal complexes.Moderate right nasal septal deviation.
07/26/24 CT chest/abd/pelvis with IV and po contrast: Multifocal pneumonia, worst in the right upper and left lower lobes. Recommend follow-up imaging after treatment to rule out underlying neoplasm.
[2024-07-27] MEDS: MYCAMINE 105 MG IV (13:45)
[2024-07-27 16:06] VITALS: BP 150/67
[2024-07-27 16:16] VITALS: BP 150/67
[2024-07-27 16:40] VITALS: BP 115/64
[2024-07-27 17:30] VITALS: BP 116/59
--- NOTE | 2024-07-27 17:30 | PTCARENOTE ---
pt temp 102.9F prior to platelet transfusion. Dr Kamara made aware via TT. PRN tylenol given and instructed to continue with transfusion. Transfusion administered. Temp now 100.9F. Will continue to monitor.
[2024-07-27] MEDS: LIPITOR 80 MG PO (21:40)
[2024-07-27 23:00] VITALS: BP 149/79
[2024-07-28] MEDS: TYLENOL 650 MG PO ×2 (00:14→14:49)
[2024-07-28] MEDS: ZOFRAN 8 MG PO (00:15)
[2024-07-28 06:00] VITALS: BMI 21.7
[2024-07-28] MEDS: STERILE WATER FOR INJECTION 10 ML IV ×4 (06:13→23:27)
[2024-07-28] MEDS: MAXIPIME 2000 MG IV (06:13)
[2024-07-28 07:00] VITALS: BP 99/43
[2024-07-28] MEDS: ZOVIRAX 400 MG PO ×2 (09:21→21:39)
[2024-07-28] MEDS: ZYLOPRIM 300 MG PO (09:21)
--- NOTE | 2024-07-28 10:32 | W.PN.HOSP.TC ---
Today's Communication/Plan
-
see plan
Assessment / Plan
Assessment / Plan
Gen: Remains NAD, AAOx3.
Eyes: EOMI, PERRLA, no scleral icterus.
Neck: supple.
CV: RRR, +S1/S2, no m/r/g.
Resp: CTAB, no rales, wheezes, or rhonchi.
Abd: Remains +BS, soft, NT, ND
Skin: No rashes.
Neuro: Remains CN 2-12 intact, non-focal.
Psych: Normal mood and affect.
07/24/24 22:23 Blood/Venous Blood Culture - Preliminary
No Growth in 72 hours- Final report to follow
07/24/24 21:40 Blood/Venous Blood Culture - Preliminary
No Growth in 72 hours- Final report to follow
07/23/24 17:42 Blood/Venous Blood Culture - Preliminary
No Growth in 4 days- Final report to follow
07/23/24 13:44 Blood/Venous Blood Culture - Preliminary
No Growth in 4 days- Final report to follow
07/26/24 12:21 Nasalpharynx Influenza Type A (PCR) - Final
Not Detected
07/26/24 12:21 Nasalpharynx Influenza Type A (H1) (PCR) - Final
Not Detected
07/26/24 12:21 Nasalpharynx Influenza Type A (H3) (PCR) - Final
Not Detected
07/26/24 12:21 Nasalpharynx Influenza Type B (PCR) - Final
Not Detected
07/26/24 12:21 Nasalpharynx Resp Syncytial Virus Type A (PCR) - Final
Not Detected
07/26/24 12:21 Nasalpharynx Resp Syncytial Virus Type B (PCR) - Final
Not Detected
07/26/24 12:21 Nasalpharynx Adenovirus DNA (PCR) - Final
Not Detected
07/26/24 12:21 Nasalpharynx Human Metapneumovirus (PCR) - Final
Not Detected
07/26/24 12:21 Nasalpharynx Parainfluenza Virus Type 1 (PCR) - Final
Not Detected
07/26/24 12:21 Nasalpharynx Parainfluenza Virus Type 2 (PCR) - Final
Not Detected
07/26/24 12:21 Nasalpharynx Parainfluenza Virus Type 3 (PCR) - Final
Not Detected
07/26/24 12:21 Nasalpharynx Parainfluenza Virus Type 4 - Final
Not Detected
07/26/24 12:21 Nasalpharynx Rhinovirus (PCR) - Final
Not Detected
07/24/24 16:27 Urine Streptococcus pneumoniae Antigen (M - Final
Negative for Streptococcus pneumoniae antigen.
A negative result does not exclude infection with
Streptococcus pneumoniae. Clinical correlation is
recommended.
07/24/24 16:27 Urine Legionella Urinary Antigen - Final
Negative for Legionella pneumophila Serogroup 1 antigen.
A negative result does not rule out the possiblity of
Legionella infection due to other serogroups or species of
Legionella. Clinical correlation is recommended.
07/23/24 13:44 Nasal Swab Influenza Types A & B (MI) - Final
Negative for Influenza A & B, NAAT
Negative results must be combined with clinical observations
and patient history.
Nucleic Acid Amplification test (NAAT)performed on the
[employer] platform.
CXR: On the frontal view, somewhat pointed defined opacity projecting over the right upper lung, as described above. This most likely represents pneumonia.
CT C/A/P:
1. Multifocal pneumonia, worst in the right upper and left lower lobes. Recommend follow-up imaging after treatment to rule out underlying neoplasm.
2. Questionable mild acute cystitis.
Acute neutropenic fever and sepsis (POA) due to multifocal PNA:
-likely sepsis due to RUL PNA, POA
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
-cont Cefepime/Acyclovir as per ID
-ANC currently near 0
-viral respiratory panel NEG, strep/legionella urinary Ags NEG
-remains febrile
-BCxs NGTD
-ONC following
Other problems:
HLD: Cont statin
Situation remains warned of high risk.
FULL/SCDs
Anticipated Discharge: > 48 hours
Subjective/Interval History
-
Date of Service: July 28, 2024
No new complaints.
Objective Data
-
Labs:
Laboratory Results
07/28/24
10:31
WBC Pending
Hgb Pending
Hct Pending
Plt Count Pending
Sodium Pending
Potassium Pending
Chloride Pending
Carbon Dioxide Pending
BUN Pending
Creatinine Pending
Glucose Pending
Calcium Pending
Vital Signs:
Vital Signs
Temp Pulse Resp BP Pulse Ox
97.8 F 70 18 99/43 97
07/28/24 07:00 07/28/24 07:00 07/28/24 07:00 07/28/24 07:00 07/28/24 07:00
I&O
07/27/24 07/28/24 07/29/24
06:59 06:59 06:59
Intake Total 298 / 298 899 / 899
Output Total 800 / 800 2300 / 2300
Balance -502 / -502 -1401 / -1401
[2024-07-28 11:25] LABS: Blood Urea Nitrogen 26 mg/dl (9-20); Calcium 8.3 mg/dl (8.4-10.2); Carbon Dioxide 32 mmol/L (22-30); Chloride 103 mmol/L (98-107); Estimated Creatinine Clearance 96 ml/min; Glucose 141 mg/dl (70-99); Potassium 4.5 mmol/L (3.5-5.1); Sodium 137 mmol/L (135-145); eGFR > 60.00
--- NOTE | 2024-07-28 11:28 | W.PN.ID1 ---
Date of Service
Date of Service: July 28, 2024
Today's Communication
- Continue micafungin (d2)
- Replace cefepime(d6) with meropenem
Assessment / Plan
# Neutropenic fever - persists
# Multifocal PNA (see CT)
# Acute Sinusitis: no fungus ball in CT sinus
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
# Chronic neutropenia/pancytopenia - transfusion dependent
- COVID/Flu neg
-Blood cx neg to date
- urine legionella ag and strep pneumo Ag neg
-UA neg
- respiratory virus pcr panel neg
- Fever persists.
- CT c/a/p w IV and po contrast: Multifocal pneumonia, worst in the right upper and left lower lobes. Recommend follow-up imaging after treatment to rule out underlying neoplasm.
- Concern for fungal pneumonia as pt was unable to take antifungal ppx.
- Aspergillosis galactomannan assay and Fungitell pending
- Continue micafungin (d2)
- Replace cefepime(d6) with meropenem
- Follow temps
Chief Complaint
-: Fever and Pneumonia
Subjective / Review of Systems
+ sweats with fever last night.
Mild nonproductive cough stable.
Sinuses improving.
+ constipation. no urine sxs.
No rectal pain
Vital Signs / Physical Exam
Vital Signs
Vital Signs
Temp Pulse Resp BP Pulse Ox
97.8 F 70 18 99/43 97
07/28/24 07:00 07/28/24 07:00 07/28/24 07:00 07/28/24 07:00 07/28/24 07:00
Selected Entries
07/28/24
00:00
Temp 102.8 F H
Physical Exam
Constitutional: No Acute Distress and Comfortable
Head: Other (No frontal or maxillary sinus tenderness)
Eyes: No Conjunctival Hemorrhage and Sclera Anicteric
Oropharyngeal: Benign; Negative Exudate or Ulcers
Cardiovascular: Regular Rate and S1/S2
Pulmonary: Clear
Gastrointestinal: Soft, Non Tender, Non Distended and Normal Bowel Sounds
Genito-Urinary: Negative CVA Tenderness
Extremities: Negative Edema
Musculoskeletal: Negative Spinal Tenderness
Neurological: AO x 3
Objective Data
Lab Data
Lab Results
07/28/24 10:52
Estimated Creat Clear 96 ml/min 07/28/24 10:52
Lactic Acid Cancelled 07/23/24 21:30
Total Bilirubin 1.7 mg/dl (0.2-1.3) H 07/24/24 04:59
AST 26 U/L (17-59) 07/24/24 04:59
ALT 31 U/L (0-50) 07/24/24 04:59
Alkaline Phosphatase 62 U/L (38-126) 07/24/24 04:59
Most recent labs reviewed.
Micro Results:
07/23/24 17:42 Blood Culture - Preliminary
Blood/Venous No Growth in 4 days- Final report to follow
07/24/24 22:23 Blood Culture - Preliminary
Blood/Venous No Growth in 72 hours- Final report to follow
07/24/24 21:40 Blood Culture - Preliminary
Blood/Venous No Growth in 72 hours- Final report to follow
07/23/24 13:44 Blood Culture - Preliminary
Blood/Venous No Growth in 4 days- Final report to follow
07/26/24 12:21 Influenza Type A (PCR) - Final
Nasalpharynx Not Detected
Influenza Type A (H1) (PCR) - Final
Not Detected
Influenza Type A (H3) (PCR) - Final
Not Detected
Influenza Type B (PCR) - Final
Not Detected
Resp Syncytial Virus Type A (PCR) - Final
Not Detected
Resp Syncytial Virus Type B (PCR) - Final
Not Detected
Adenovirus DNA (PCR) - Final
Not Detected
Human Metapneumovirus (PCR) - Final
Not Detected
Parainfluenza Virus Type 1 (PCR) - Final
Not Detected
Parainfluenza Virus Type 2 (PCR) - Final
Not Detected
Parainfluenza Virus Type 3 (PCR) - Final
Not Detected
Parainfluenza Virus Type 4 - Final
Not Detected
Rhinovirus (PCR) - Final
Not Detected
07/24/24 16:27 Streptococcus pneumoniae Antigen (M - Final
Urine Negative for Streptococcus pneumoniae antigen.
A negative result does not exclude infection with
Streptococcus pneumoniae. Clinical correlation is
recommended.
07/24/24 16:27 Legionella Urinary Antigen - Final
Urine Negative for Legionella pneumophila Serogroup 1 antigen.
A negative result does not rule out the possiblity of
Legionella infection due to other serogroups or species of
Legionella. Clinical correlation is recommended.
07/23/24 13:44 Influenza Types A & B (MI) - Final
Nasal Swab Negative for Influenza A & B, NAAT
Negative results must be combined with clinical observations
and patient history.
Nucleic Acid Amplification test (NAAT)performed on the
[employer] platform.
07/23/24 CXR: On the frontal view, somewhat pointed defined opacity projecting over the right upper lung, as described above. This most likely represents pneumonia.
07/24/[address]: Overall moderate nonacute sinusitis.Bilateral patent ostiomeatal complexes.Moderate right nasal septal deviation.
07/26/24 CT chest/abd/pelvis with IV and po contrast: Multifocal pneumonia, worst in the right upper and left lower lobes. Recommend follow-up imaging after treatment to rule out underlying neoplasm.
[2024-07-28] MEDS: MERREM 500 MG IV ×3 (11:48→23:27)
[2024-07-28] MEDS: MYCAMINE 105 MG IV (11:48)
[2024-07-28 12:01] LABS: % Lymphocytes 64.3 % (20.5-51.1); % Monocytes 28.6 % (1.7-9.3); % Neutrophils 7.1 % (42.2-75.2); Absolute Lymphocytes 0.1 10^3/uL (1.2-3.4); Hematocrit 21.7 % (39.0-52.0); Hemoglobin 7.5 g/dL (13.0-18.0); Mean Corp Hgb Conc. 34.6 g/dL (33.0-37.0); Mean Corpuscular Hgb 27.8 pg (27.0-31.0); Mean Corpuscular Volume 80.4 fL (80.0-94.0); Mean Platelet Volume 9.4 fL (7.4-10.4); Nucleated Red Blood Cells % 0 % (-); Platelet Count 24 10^3/uL (130-400); Red Cell Dist. Width 13.5 % (11.5-14.5); White Blood Cell Count 0.1 10^3/uL (4.8-10.8)
[2024-07-28 14:51] VITALS: BP 141/71
[2024-07-28 15:00] VITALS: BP 141/71
[2024-07-28 15:18] VITALS: BP 128/71
[2024-07-28 15:21] VITALS: BP 128/71
--- NOTE | 2024-07-28 15:21 | W.PN.ONC2 ---
Today's Communication / Plan
-
- no transfusions needed today.
- ongoing fevers with WBC 0.1. apprec ID, primary team recs. Anti-fungal added to Abx
Impression
Impression
AML, on Vidaza/Venetoclax
Febrile neutropenia, suspected right pneumonia +/- sinusitis+/- acute cystitis
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
Plan
Plan
anti-microbial per ID, micafungin added 07/27 due to high risk for fungal PNA, testing pending. switched to meropenum today with ongoing fevers.
BCx, viral w/u negative.
daily CBC
transfuse Hgb <7 or as needed for sxs anemia, platelets <20 in setting of neutropenic fever (irradiated products)
Reviewed with pt that repeat BMbx from 07/18 with persistent blasts, 13%. Ideally would resume tx LIUDMILA once stable from infection standpoint. reluctant to give G-CSF with active AML on recent marrow but will consider if no clinical improve or decline.
Will follow along
Subjective/Objective
Chief Complaint
febrile neutropenia, AML
Subjective
pt has no new complaints today, still with dry cough. T max over past 24 hours 102.8 last night. hgb stable at 7.5, plts up to 24K after 1 unit yesterday.
Vital Signs:
Vital Signs
Temp Pulse Resp BP Pulse Ox
101.2 F H 87 18 141/71 97
07/28/24 14:51 07/28/24 14:51 07/28/24 14:51 07/28/24 14:51 07/28/24 07:00
Lab Results:
Laboratory Data
WBC 0.1 10^3/uL (4.8-10.8) L* 07/28/24 11:35
Hgb 7.5 g/dL (13.0-18.0) L 07/28/24 11:35
Plt Count 24 10^3/uL (130-400) L* D 07/28/24 11:35
eGFR > 60.00 07/28/24 10:52
Physical Exam
HEENT: No Jaundice
Cardiology: Normal Sinus Rhythm
Pulmonary: Clear
Extremities: No Edema
Neuro: Non Focal
Review of Systems
Review of Systems
Constitutional: Reports Fever and Fatigue
Respiratory: Reports Dyspnea and Cough
Gastrointestinal: Denies Nausea/Vomiting or Diarrhea
Neurological: Denies Headache
Hem/Lymphatic: Denies Easy Bruising
[2024-07-28] MEDS: LIPITOR 80 MG PO (21:39)
[2024-07-28 23:00] VITALS: BP 151/68
[2024-07-29] VITALS (9 sets, daily range): BP systolic 114–138; BP diastolic 61–74; PULSE 80–83; O2SAT 93; BMI 21.8
[2024-07-29 05:49] LABS: % Immature Granulocytes 7.7 % (0-0.5); % Lymphocytes 61.5 % (20.5-51.1); % Monocytes 30.8 % (1.7-9.3); Absolute Lymphocytes 0.1 10^3/uL (1.2-3.4); Hematocrit 19.8 % (39.0-52.0); Mean Corp Hgb Conc. 35.4 g/dL (33.0-37.0); Mean Corpuscular Hgb 28.6 pg (27.0-31.0); Mean Corpuscular Volume 80.8 fL (80.0-94.0); Mean Platelet Volume 10.6 fL (7.4-10.4); Nucleated Red Blood Cells % 0 % (-); Platelet Count 25 10^3/uL (130-400); Red Blood Cell Count 2.45 10^6/uL (4.70-6.10); Red Cell Dist. Width 13.5 % (11.5-14.5); White Blood Cell Count 0.1 10^3/uL (4.8-10.8)
[2024-07-29] MEDS: MERREM 500 MG IV ×3 (05:49→19:55)
[2024-07-29] MEDS: STERILE WATER FOR INJECTION 10 ML IV ×3 (05:49→19:55)
[2024-07-29 06:19] LABS: Blood Urea Nitrogen 25 mg/dl (9-20); Calcium 8.1 mg/dl (8.4-10.2); Carbon Dioxide 28 mmol/L (22-30); Chloride 101 mmol/L (98-107); Estimated Creatinine Clearance 85 ml/min; Glucose 139 mg/dl (70-99); Potassium 4.5 mmol/L (3.5-5.1); Sodium 134 mmol/L (135-145); eGFR > 60.00
[2024-07-29] MEDS: ZOVIRAX 400 MG PO ×2 (09:12→19:54)
[2024-07-29] MEDS: ZYLOPRIM 300 MG PO (09:15)
--- NOTE | 2024-07-29 09:19 | W.PN.HOSP.TC ---
Today's Communication/Plan
-
continue precautions
continue Abx
follow blood counts
appreciate H/O and ID recs
Assessment / Plan
Assessment / Plan
Gen: Remains NAD, AAOx3.
Eyes: EOMI, PERRLA, no scleral icterus.
Neck: supple.
CV: RRR, +S1/S2, no m/r/g.
Resp: CTAB, no rales, wheezes, or rhonchi.
Abd: Remains +BS, soft, NT, ND
Skin: No rashes.
Neuro: Remains CN 2-12 intact, non-focal.
Psych: Normal mood and affect.
Assessment:
Acute neutropenic fever and sepsis (POA - fever, leukopenia) due to multifocal PNA and Acute Sinusitis
-likely sepsis due to RUL PNA, POA
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 transfuse Hb <7.0 and platelets <20
-ANC currently near 0
-Hematology following
-cont Meropenem
-cont Acyclovir
-cont Micafungin
-ID following
-viral respiratory panel NEG, strep/legionella urinary Ags NEG
-remains febrile
-BCxs NGTD
HLD: Cont statin
Gout - on Allopurinol
Situation remains warned of high risk.
DVT ppx: SCDs
CodE: Full
Anticipated Discharge: > 48 hours
Subjective/Interval History
-
Date of Service: July 29, 2024
stable cough, mild production
denies SOB or CP
last fever 100.4 11pm
Objective Data
-
Labs:
Laboratory Results
07/29/24
04:52
WBC 0.1 L*
Hgb 7.0 L
Hct 19.8 L*
Plt Count 25 L*
Sodium 134 L
Potassium 4.5
Chloride 101
Carbon Dioxide 28
BUN 25 H
Creatinine 0.8
Glucose 139 H
Calcium 8.1 L
Vital Signs:
Vital Signs
Temp Pulse Resp BP Pulse Ox
99.5 F 82 16 118/61 94
07/29/24 07:20 07/29/24 07:20 07/29/24 07:20 07/29/24 07:20 07/29/24 07:20
I&O
07/28/24 07/29/24 07/30/24
06:59 06:59 06:59
Intake Total 899 / 899 1543 / 1543
Output Total 2300 / 2300 1600 / 1600
Balance -1401 / -1401 -57 / -57
Data Reviewed
-
Total Time Spent with Patient (in minutes): 44
Labs: Labs Reviewed by me
--- NOTE | 2024-07-29 11:58 | W.PN.ONC2 ---
Today's Communication / Plan
-
1 unit pRBCs today
CBC daily.
anti-microbial management per ID.
Impression
Impression
AML, on Vidaza/Venetoclax
Febrile neutropenia, suspected right pneumonia +/- sinusitis+/- acute cystitis
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
Plan
Plan
anti-microbial per ID, micafungin added 07/27 due to high risk for fungal PNA, testing pending. Abx switched to meropenum 07/28 with ongoing fevers. Last 24 hours with modest improvement in fever curve.
BCx, viral w/u negative.
daily CBC
transfuse Hgb <7 or as needed for sxs anemia, platelets <20 in setting of neutropenic fever (irradiated products) . Ordered 1 unit pRBCs today for hgb 7.0 g/dl and worsening fatigue.
repeat BMbx from 07/18 with persistent blasts, 13%. Ideally would resume tx LIUDMILA once stable from infection standpoint. reluctant to give G-CSF with active AML on recent marrow but will consider if no clinical improvement or he has decline.
Will follow along
Subjective/Objective
Chief Complaint
AML, neutropenic fevers
Subjective
pt notes fatigue, otherwise no new complaints. T max over past 24 hours 101.2.
Vital Signs:
Vital Signs
Temp Pulse Resp BP Pulse Ox
99.5 F 82 16 118/61 94
07/29/24 07:20 07/29/24 07:20 07/29/24 07:20 07/29/24 07:20 07/29/24 07:20
Lab Results:
Laboratory Data
WBC 0.1 10^3/uL (4.8-10.8) L* 07/29/24 04:52
Hgb 7.0 g/dL (13.0-18.0) L 07/29/24 04:52
Plt Count 25 10^3/uL (130-400) L* 07/29/24 04:52
eGFR > 60.00 07/29/24 04:52
Physical Exam
HEENT: Other (pallor); No Jaundice
Cardiology: Normal Sinus Rhythm
Pulmonary: Clear; No Wheezes
GI: Soft; No Distended
Extremities: No Edema
Neuro: Non Focal
Review of Systems
Review of Systems
Constitutional: Reports Fever and Fatigue
Head: Denies Sore Throat
Respiratory: Reports Cough; Denies Dyspnea
Cardiovascular: Denies Chest Pain
Neurological: Denies Headache
Hem/Lymphatic: Denies Easy Bruising
Orders
Orders
Orders From Last 24 Hours
07/29/24 09:42
* Blood Bank Products Routine
[2024-07-29] MEDS: MYCAMINE 105 MG IV (13:15)
--- NOTE | 2024-07-29 14:19 | W.PN.ID1 ---
Date of Service
Date of Service: July 29, 2024
Today's Communication
Continue current antibiotics.
Assessment / Plan
# Neutropenic fever - persists
# Multifocal PNA (see CT)
# Acute Sinusitis: no fungus ball in CT sinus
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
# Chronic neutropenia/pancytopenia - transfusion dependent
- COVID/Flu neg
-Blood cx neg to date
- urine legionella ag and strep pneumo Ag neg
-UA neg
- respiratory virus pcr panel neg
- Fever persists.
- CT c/a/p w IV and po contrast: Multifocal pneumonia, worst in the right upper and left lower lobes. Recommend follow-up imaging after treatment to rule out underlying neoplasm.
- Concern for fungal pneumonia as pt was unable to take antifungal ppx.
- Aspergillosis galactomannan assay and Fungitell pending
- Continue micafungin (d3)
- Continue meropenem (d2)
- (s/p 5d cefepime)
- Follow temps
Chief Complaint
-: Fever and Pneumonia
Subjective / Review of Systems
No new complaints. No new sxs.
Vital Signs / Physical Exam
Vital Signs
Vital Signs
Temp Pulse Resp BP Pulse Ox
99.5 F 82 16 118/61 94
07/29/24 07:20 07/29/24 07:20 07/29/24 07:20 07/29/24 07:20 07/29/24 07:20
Selected Entries
07/28/24
15:00 07/28/24
23:00
Temp 101.2 F H 100.4 F H
Physical Exam
Constitutional: No Acute Distress and Comfortable
Head: Other (No frontal or maxillary sinus tenderness)
Eyes: No Conjunctival Hemorrhage and Sclera Anicteric
Oropharyngeal: Benign; Negative Exudate or Ulcers
Cardiovascular: Regular Rate and S1/S2
Pulmonary: Clear
Gastrointestinal: Soft, Non Tender, Non Distended and Normal Bowel Sounds
Genito-Urinary: Negative CVA Tenderness
Extremities: Negative Edema
Musculoskeletal: Negative Spinal Tenderness
Neurological: AO x 3
Objective Data
Lab Data
Lab Results
07/29/24 04:52
07/29/24 04:52
Estimated Creat Clear 85 ml/min 07/29/24 04:52
Lactic Acid Cancelled 07/23/24 21:30
Total Bilirubin 1.7 mg/dl (0.2-1.3) H 07/24/24 04:59
AST 26 U/L (17-59) 07/24/24 04:59
ALT 31 U/L (0-50) 07/24/24 04:59
Alkaline Phosphatase 62 U/L (38-126) 07/24/24 04:59
Most recent labs reviewed.
Micro Results:
07/24/24 22:23 Blood Culture - Preliminary
Blood/Venous No Growth in 4 days- Final report to follow
07/24/24 21:40 Blood Culture - Preliminary
Blood/Venous No Growth in 4 days- Final report to follow
07/23/24 17:42 Blood Culture - Final
Blood/Venous No Growth - Final Report
07/23/24 13:44 Blood Culture - Final
Blood/Venous No Growth - Final Report
07/26/24 12:21 Influenza Type A (PCR) - Final
Nasalpharynx Not Detected
Influenza Type A (H1) (PCR) - Final
Not Detected
Influenza Type A (H3) (PCR) - Final
Not Detected
Influenza Type B (PCR) - Final
Not Detected
Resp Syncytial Virus Type A (PCR) - Final
Not Detected
Resp Syncytial Virus Type B (PCR) - Final
Not Detected
Adenovirus DNA (PCR) - Final
Not Detected
Human Metapneumovirus (PCR) - Final
Not Detected
Parainfluenza Virus Type 1 (PCR) - Final
Not Detected
Parainfluenza Virus Type 2 (PCR) - Final
Not Detected
Parainfluenza Virus Type 3 (PCR) - Final
Not Detected
Parainfluenza Virus Type 4 - Final
Not Detected
Rhinovirus (PCR) - Final
Not Detected
07/24/24 16:27 Streptococcus pneumoniae Antigen (M - Final
Urine Negative for Streptococcus pneumoniae antigen.
A negative result does not exclude infection with
Streptococcus pneumoniae. Clinical correlation is
recommended.
07/24/24 16:27 Legionella Urinary Antigen - Final
Urine Negative for Legionella pneumophila Serogroup 1 antigen.
A negative result does not rule out the possiblity of
Legionella infection due to other serogroups or species of
Legionella. Clinical correlation is recommended.
07/23/24 13:44 Influenza Types A & B (MI) - Final
Nasal Swab Negative for Influenza A & B, NAAT
Negative results must be combined with clinical observations
and patient history.
Nucleic Acid Amplification test (NAAT)performed on the
[employer] platform.
07/23/24 CXR: On the frontal view, somewhat pointed defined opacity projecting over the right upper lung, as described above. This most likely represents pneumonia.
07/24/[address]: Overall moderate nonacute sinusitis.Bilateral patent ostiomeatal complexes.Moderate right nasal septal deviation.
07/26/24 CT chest/abd/pelvis with IV and po contrast: Multifocal pneumonia, worst in the right upper and left lower lobes. Recommend follow-up imaging after treatment to rule out underlying neoplasm.
Care Review
Plan reviewed with: Physician (Dr. Elaine)
--- NOTE | 2024-07-29 14:57 | CM ---
CM met with Philip at bedside to complete IA.
He lives with in 2 story home with bed/bath on the 1st level. (I) ambulation with a RW; (I) ADLs. Pt has a history of extended hospital stay and [facility]; approximately 9 months ago.
Therapists recommend home care services at discharge. CM to follow to coordinate all discharge planning needs.
--- NOTE | 2024-07-29 16:46 | PTCARENOTE ---
Blood transfusion started at approx 1620. Patient is comfortable, laying in bed. Patient without any discomfort or reactions for first fifteen minutes. Will continue to monitor. VSS.
--- NOTE | 2024-07-29 19:36 | PTCARENOTE ---
Patients blood has stopped transfusing, patient is AAOx3.
[2024-07-29] MEDS: TYLENOL 650 MG PO (19:54)
[2024-07-29] MEDS: LIPITOR 80 MG PO (21:12)
[2024-07-30] VITALS (7 sets, daily range): BP systolic 104–132; BP diastolic 53–76; BMI 21.9
[2024-07-30] MEDS: STERILE WATER FOR INJECTION 10 ML IV ×2 (00:47→05:59)
[2024-07-30] MEDS: MERREM 500 MG IV ×2 (00:47→05:59)
[2024-07-30 06:46] LABS: % Lymphocytes 57.1 % (20.5-51.1); % Monocytes 35.7 % (1.7-9.3); % Neutrophils 7.2 % (42.2-75.2); Absolute Lymphocytes 0.1 10^3/uL (1.2-3.4); Absolute Monocytes 0.1 10^3/uL (0.1-0.6); Blood Urea Nitrogen 25 mg/dl (9-20); Calcium 8.2 mg/dl (8.4-10.2); Carbon Dioxide 30 mmol/L (22-30); Chloride 100 mmol/L (98-107); Estimated Creatinine Clearance 75 ml/min; Glucose 132 mg/dl (70-99); Hematocrit 22.3 % (39.0-52.0); Hemoglobin 7.7 g/dL (13.0-18.0); Mean Corp Hgb Conc. 34.5 g/dL (33.0-37.0); Mean Corpuscular Hgb 28.2 pg (27.0-31.0); Mean Corpuscular Volume 81.7 fL (80.0-94.0); Mean Platelet Volume 10.5 fL (7.4-10.4); Nucleated Red Blood Cells % 0 % (-); Platelet Count 15 10^3/uL (130-400); Potassium 4.5 mmol/L (3.5-5.1); Red Blood Cell Count 2.73 10^6/uL (4.70-6.10); Red Cell Dist. Width 13.6 % (11.5-14.5); Sodium 135 mmol/L (135-145); White Blood Cell Count 0.1 10^3/uL (4.8-10.8); eGFR > 60.00
[2024-07-30] MEDS: ZYLOPRIM 300 MG PO (09:43)
[2024-07-30] MEDS: ZOVIRAX 400 MG PO ×2 (09:43→20:11)
--- NOTE | 2024-07-30 09:48 | W.PN.ONC2 ---
Today's Communication / Plan
-
Continue antibiotics
Continue to monitor hemoglobin, transfuse as needed
Impression
Impression
AML, on Vidaza/Venetoclax
Febrile neutropenia, suspected right pneumonia +/- sinusitis+/- acute cystitis
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
Plan
Plan
� Continue meropenem and micafungin per ID recommendations. Status post 5 days of cefepime.
� Continue to monitor fever curve. Patient currently afebrile.
� Continue to monitor daily CBC. Transfuse if hemoglobin less than 7, platelets less than 20. Patient received 1 unit of packed red blood cells yesterday. Hemoglobin currently 7.7
� Bone marrow biopsy from 07/18 shows persistent blast�13%. [facility] treatment for AML
Subjective/Objective
Subjective
Overnight, patient reports no acute events. He states he feels slightly better than last week. He comments on feeling depressed and sad. He was given some resources for providers outpatient, would like to move forward with scheduling time with
them, however barrier to accessing care is that his has been having some back problems and is hesitant to go in person. I discussed setting up telehealth appointments and sharing concerns of depressive symptoms with other providers as well if
he would like to start medication. He states that he has been ambulating since yesterday for short distances, looks forward to his walk today.
Vital Signs:
Vital Signs
Temp Pulse Resp BP Pulse Ox
99.6 F 84 16 120/71 97
07/30/24 07:44 07/30/24 07:44 07/30/24 07:44 07/30/24 07:44 07/30/24 07:44
Lab Results:
Laboratory Data
WBC 0.1 10^3/uL (4.8-10.8) L* 07/30/24 05:47
Hgb 7.7 g/dL (13.0-18.0) L 05/19/25 05:47
Plt Count 15 10^3/uL (130-400) L* D 07/30/24 05:47
eGFR > 60.00 07/30/24 05:47
Physical Exam
General: Alert and oriented x 3, resting comfortably, conversant, well-groomed
GI: Soft
Extremities: No C/C/E
Review of Systems
Review of Systems
All reviewed and negative unless otherwise stated
Psychiatric: Reports Depression
--- NOTE | 2024-07-30 09:50 | W.PN.ID1 ---
Date of Service
Date of Service: July 30, 2024
Today's Communication
Continue micafungin.
DC meropenem.
Assessment / Plan
# Neutropenic fever
. Fever trending down
# Multifocal PNA (see CT)
# Acute Sinusitis: no fungus ball in CT sinus
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
# Chronic neutropenia/pancytopenia - transfusion dependent
- COVID/Flu neg
-Blood cx neg to date
- urine legionella ag and strep pneumo Ag neg
-UA neg
- respiratory virus pcr panel neg
- CT c/a/p w IV and po contrast: Multifocal pneumonia, worst in the right upper and left lower lobes. Recommend follow-up imaging after treatment to rule out underlying neoplasm.
- Concern for fungal pneumonia as pt was unable to take posaconazole ppx.
- Aspergillosis galactomannan assay and Fungitell pending
- Continue micafungin (d4)
Fevers trending down on antifungal.
- Discontinue meropenem (d3) and observe.
- (s/p 5d cefepime)
- Follow temps
Chief Complaint
-: Fever and Pneumonia
Subjective / Review of Systems
No complaints. No new sxs.
Vital Signs / Physical Exam
Vital Signs
Vital Signs
Temp Pulse Resp BP Pulse Ox
99.6 F 84 16 120/71 97
07/30/24 07:44 07/30/24 07:44 07/30/24 07:44 07/30/24 07:44 07/30/24 07:44
Selected Entries
07/29/24
19:15
Temp 100.8 F H
Physical Exam
Constitutional: No Acute Distress and Comfortable
Head: Other (No frontal or maxillary sinus tenderness)
Eyes: No Conjunctival Hemorrhage and Sclera Anicteric
Oropharyngeal: Benign; Negative Exudate or Ulcers
Cardiovascular: Regular Rate and S1/S2
Pulmonary: Rales (right upper lung)
Gastrointestinal: Soft, Non Tender, Non Distended and Normal Bowel Sounds
Genito-Urinary: Negative CVA Tenderness
Extremities: Negative Edema
Musculoskeletal: Negative Spinal Tenderness
Neurological: AO x 3
Objective Data
Lab Data
Lab Results
07/30/24 05:47
07/30/24 05:47
Estimated Creat Clear 75 ml/min 07/30/24 05:47
Lactic Acid Cancelled 07/23/24 21:30
Total Bilirubin 1.7 mg/dl (0.2-1.3) H 07/24/24 04:59
AST 26 U/L (17-59) 07/24/24 04:59
ALT 31 U/L (0-50) 07/24/24 04:59
Alkaline Phosphatase 62 U/L (38-126) 07/24/24 04:59
Most recent labs reviewed.
Micro Results:
07/24/24 22:23 Blood Culture - Final
Blood/Venous No Growth - Final Report
07/24/24 21:40 Blood Culture - Final
Blood/Venous No Growth - Final Report
07/23/24 17:42 Blood Culture - Final
Blood/Venous No Growth - Final Report
07/23/24 13:44 Blood Culture - Final
Blood/Venous No Growth - Final Report
07/26/24 12:21 Influenza Type A (PCR) - Final
Nasalpharynx Not Detected
Influenza Type A (H1) (PCR) - Final
Not Detected
Influenza Type A (H3) (PCR) - Final
Not Detected
Influenza Type B (PCR) - Final
Not Detected
Resp Syncytial Virus Type A (PCR) - Final
Not Detected
Resp Syncytial Virus Type B (PCR) - Final
Not Detected
Adenovirus DNA (PCR) - Final
Not Detected
Human Metapneumovirus (PCR) - Final
Not Detected
Parainfluenza Virus Type 1 (PCR) - Final
Not Detected
Parainfluenza Virus Type 2 (PCR) - Final
Not Detected
Parainfluenza Virus Type 3 (PCR) - Final
Not Detected
Parainfluenza Virus Type 4 - Final
Not Detected
Rhinovirus (PCR) - Final
Not Detected
07/24/24 16:27 Streptococcus pneumoniae Antigen (M - Final
Urine Negative for Streptococcus pneumoniae antigen.
A negative result does not exclude infection with
Streptococcus pneumoniae. Clinical correlation is
recommended.
07/24/24 16:27 Legionella Urinary Antigen - Final
Urine Negative for Legionella pneumophila Serogroup 1 antigen.
A negative result does not rule out the possiblity of
Legionella infection due to other serogroups or species of
Legionella. Clinical correlation is recommended.
07/23/24 13:44 Influenza Types A & B (MI) - Final
Nasal Swab Negative for Influenza A & B, NAAT
Negative results must be combined with clinical observations
and patient history.
Nucleic Acid Amplification test (NAAT)performed on the
[employer] platform.
07/23/24 CXR: On the frontal view, somewhat pointed defined opacity projecting over the right upper lung, as described above. This most likely represents pneumonia.
07/24/[address]: Overall moderate nonacute sinusitis.Bilateral patent ostiomeatal complexes.Moderate right nasal septal deviation.
07/26/24 CT chest/abd/pelvis with IV and po contrast: Multifocal pneumonia, worst in the right upper and left lower lobes. Recommend follow-up imaging after treatment to rule out underlying neoplasm.
--- NOTE | 2024-07-30 11:12 | W.PN.HOSP.TC ---
Today's Communication/Plan
-
continue Micafungin per ID
as needed transfusions per parameters from Heme/Onc
Assessment / Plan
Assessment / Plan
Gen: Remains NAD, AAOx3.
Eyes: EOMI, PERRLA, no scleral icterus.
Neck: supple.
CV: RRR, +S1/S2, no m/r/g.
Resp: CTAB, no rales, wheezes, or rhonchi.
Abd: Remains +BS, soft, NT, ND
Skin: No rashes.
Neuro: Remains CN 2-12 intact, non-focal.
Psych: Normal mood and affect.
Assessment:
Acute neutropenic fever and sepsis (POA - fever, leukopenia) due to multifocal PNA and Acute Sinusitis
-likely sepsis due to RUL PNA, POA
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 transfuse Hb <7.0 and platelets <20
-ANC currently near 0
-Hematology following
-cont Acyclovir
-cont Micafungin. Aspergillosis galactomannan assay and Fungitell pending
-s/p Cefepime and Merrem course
-ID following
-viral respiratory panel NEG, strep/legionella urinary Ags NEG
-remains febrile
-BCxs NGTD
HLD: Cont statin
Gout - on Allopurinol
Situation remains warned of high risk.
DVT ppx: SCDs
CodE: Full
Anticipated Discharge: > 48 hours
Subjective/Interval History
-
Date of Service: July 30, 2024
resting comfortably, denies any complaints
Objective Data
-
Labs:
Laboratory Results
07/30/24
05:47
WBC 0.1 L*
Hgb 7.7 L
Hct 22.3 L
Plt Count 15 L* D
Sodium 135
Potassium 4.5
Chloride 100
Carbon Dioxide 30
BUN 25 H
Creatinine 0.9
Glucose 132 H
Calcium 8.2 L
Vital Signs:
Vital Signs
Temp Pulse Resp BP Pulse Ox
99.6 F 84 16 120/71 97
07/30/24 07:44 07/30/24 07:44 07/30/24 07:44 07/30/24 07:44 07/30/24 07:44
I&O
07/29/24 07/30/24 07/31/24
06:59 06:59 06:59
Intake Total 1543 / 1543 960 / 960
Output Total 1600 / 1600 950 / 950
Balance -57 / -57
Data Reviewed
-
Total Time Spent with Patient (in minutes): 44
Labs: Labs Reviewed by me
[2024-07-30] MEDS: MYCAMINE 105 MG IV (12:53)
[2024-07-30] MEDS: LIPITOR 80 MG PO (20:11)
[2024-07-31 06:00] VITALS: BMI 21.8
[2024-07-31 06:33] LABS: % Lymphocytes 63.6 % (20.5-51.1); % Monocytes 27.3 % (1.7-9.3); % Neutrophils 9.1 % (42.2-75.2); Absolute Lymphocytes 0.1 10^3/uL (1.2-3.4); Hematocrit 20.6 % (39.0-52.0); Hemoglobin 7.2 g/dL (13.0-18.0); Mean Corpuscular Hgb 28.3 pg (27.0-31.0); Mean Corpuscular Volume 81.1 fL (80.0-94.0); Mean Platelet Volume 9.3 fL (7.4-10.4); Nucleated Red Blood Cells % 0 % (-); Platelet Count 19 10^3/uL (130-400); Red Blood Cell Count 2.54 10^6/uL (4.70-6.10); Red Cell Dist. Width 13.4 % (11.5-14.5); White Blood Cell Count 0.1 10^3/uL (4.8-10.8)
[2024-07-31 07:30] VITALS: BP 120/49
[2024-07-31 08:04] LABS: Blood Urea Nitrogen 24 mg/dl (9-20); Carbon Dioxide 28 mmol/L (22-30); Chloride 101 mmol/L (98-107); Estimated Creatinine Clearance 85 ml/min; Glucose 136 mg/dl (70-99); Potassium 4.4 mmol/L (3.5-5.1); Sodium 132 mmol/L (135-145); eGFR > 60.00
[2024-07-31] MEDS: ZYLOPRIM 300 MG PO (08:33)
[2024-07-31] MEDS: LEVAQUIN 500 MG PO (08:33)
[2024-07-31] MEDS: ZOVIRAX 400 MG PO ×2 (08:33→20:59)
[2024-07-31] MEDS: VFEND 145 MG IV ×2 (09:39→21:33)
--- NOTE | 2024-07-31 10:26 | W.PN.HOSP.TC ---
Today's Communication/Plan
-
repeat PT/OT evals
possible DC in 24 hours per Heme/Onc and ID
Assessment / Plan
Assessment / Plan
Assessment:
Acute neutropenic fever and sepsis (POA - fever, leukopenia) due to multifocal PNA and Acute Sinusitis
-likely sepsis due to RUL PNA, POA
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 transfuse Hb <7.0 and platelets <20
-ANC currently near 0
-Hematology following
-cont Acyclovir
-cont Voriconazole
-Aspergillosis galactomannan assay and Fungitell pending
-s/p Cefepime and Merrem course
-continue Levaquin
-ID following
-viral respiratory panel NEG, strep/legionella urinary Ags NEG
-remains febrile
-BCxs NGTD
HLD: Cont statin
Gout - on Allopurinol
Situation remains warned of high risk.
DVT ppx: SCDs
CodE: Full
Anticipated Discharge: Within 24 hours
Subjective/Interval History
-
Date of Service: July 31, 2024
resting comfortably, no complaints at present
Objective Data
-
Labs:
Laboratory Results
07/31/24
06:12
WBC 0.1 L*
Hgb 7.2 L
Hct 20.6 L*
Plt Count 19 L* D
Sodium 132 L
Potassium 4.4
Chloride 101
Carbon Dioxide 28
BUN 24 H
Creatinine 0.8
Glucose 136 H
Calcium 8.0 L
Vital Signs:
Vital Signs
Temp Pulse Resp BP Pulse Ox
98.0 F 68 16 120/49 97
07/31/24 07:30 07/31/24 07:30 07/31/24 07:30 07/31/24 07:30 07/31/24 07:30
I&O
07/30/24 07/31/24 08/01/24
06:59 06:59 06:59
Intake Total 960 / 960 982 / 982
Output Total 950 / 950 1000 / 1000 375 / 375
Balance -18 / -18 -375 / -375
Physical Exam
-
General: No Apparent Distress
HEENT: Normocephalic and Atraumatic
Respiratory: Negative Wheezes
Cardiac: Regular Rhythm and S1/S2
GI: Soft
Neuro: AO x 3
Psych: Calm
Data Reviewed
-
Total Time Spent with Patient (in minutes): 44
Labs: Labs Reviewed by me
--- NOTE | 2024-07-31 11:46 | W.PN.ID1 ---
Date of Service
Date of Service: July 31, 2024
Today's Communication
See below.
Assessment / Plan
# Neutropenic fever
. Fever resolved
# Multifocal PNA (see CT)
# Acute Sinusitis: no fungus ball in CT sinus
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
# Chronic neutropenia/pancytopenia - transfusion dependent
- COVID/Flu neg
-Blood cx neg to date
- urine legionella ag and strep pneumo Ag neg
-UA neg
- respiratory virus pcr panel neg
- s/p 5d cefepime followed by 3d meropenem, dc'd 07/30
- CT c/a/p w IV and po contrast: Multifocal pneumonia, worst in the right upper and left lower lobes. Recommend follow-up imaging after treatment to rule out underlying neoplasm.
- Concern for fungal pneumonia as pt was unable to take posaconazole ppx due to interaction with atorvastatin
- Aspergillosis galactomannan assay and Fungitell both negative, likely false negative due to profound immunosuppression.
- Fever resolved on antifungal micafungin (d5)
- DC micafungin.
- Load with IV voriconazole 450mg IV q12 x 2 doses.
- Tomorrow start voriconazole 200mg po bid x 2-3 months and/or until repeat CT chest shows resolution of infiltrates.
- Voriconazole can potentially increase atorvastatin level. Monitor weekly CK, LFT's (at infusion center)
Check Voriconazole level next week.
- Discussed with patient to avoid sun exposure while on Vori.
Monitor for visionchanges. Should have baseline outpt ophtho exam.
- Follow temps
-Continue ppx Acyclovir and levofloxacin.
Chief Complaint
-: Fever and Pneumonia
Subjective / Review of Systems
Cough stable.
Vital Signs / Physical Exam
Vital Signs
Vital Signs
Temp Pulse Resp BP Pulse Ox
98.0 F 68 16 120/49 97
07/31/24 07:30 07/31/24 07:30 07/31/24 07:30 07/31/24 07:30 07/31/24 07:30
Physical Exam
Constitutional: No Acute Distress and Comfortable
Head: Other (No frontal or maxillary sinus tenderness)
Eyes: No Conjunctival Hemorrhage and Sclera Anicteric
Oropharyngeal: Benign; Negative Exudate or Ulcers
Cardiovascular: Regular Rate and S1/S2
Pulmonary: Rales (right upper lung)
Gastrointestinal: Soft, Non Tender, Non Distended and Normal Bowel Sounds
Genito-Urinary: Negative CVA Tenderness
Extremities: Negative Edema
Musculoskeletal: Negative Spinal Tenderness
Neurological: AO x 3
Objective Data
Lab Data
Lab Results
07/31/24 06:12
07/31/24 06:12
Estimated Creat Clear 85 ml/min 07/31/24 06:12
Lactic Acid Cancelled 07/23/24 21:30
Total Bilirubin 1.7 mg/dl (0.2-1.3) H 07/24/24 04:59
AST 26 U/L (17-59) 07/24/24 04:59
ALT 31 U/L (0-50) 07/24/24 04:59
Alkaline Phosphatase 62 U/L (38-126) 07/24/24 04:59
Most recent labs reviewed.
Micro Results:
07/24/24 22:23 Blood Culture - Final
Blood/Venous No Growth - Final Report
07/24/24 21:40 Blood Culture - Final
Blood/Venous No Growth - Final Report
07/23/24 17:42 Blood Culture - Final
Blood/Venous No Growth - Final Report
07/23/24 13:44 Blood Culture - Final
Blood/Venous No Growth - Final Report
07/26/24 12:21 Influenza Type A (PCR) - Final
Nasalpharynx Not Detected
Influenza Type A (H1) (PCR) - Final
Not Detected
Influenza Type A (H3) (PCR) - Final
Not Detected
Influenza Type B (PCR) - Final
Not Detected
Resp Syncytial Virus Type A (PCR) - Final
Not Detected
Resp Syncytial Virus Type B (PCR) - Final
Not Detected
Adenovirus DNA (PCR) - Final
Not Detected
Human Metapneumovirus (PCR) - Final
Not Detected
Parainfluenza Virus Type 1 (PCR) - Final
Not Detected
Parainfluenza Virus Type 2 (PCR) - Final
Not Detected
Parainfluenza Virus Type 3 (PCR) - Final
Not Detected
Parainfluenza Virus Type 4 - Final
Not Detected
Rhinovirus (PCR) - Final
Not Detected
07/24/24 16:27 Streptococcus pneumoniae Antigen (M - Final
Urine Negative for Streptococcus pneumoniae antigen.
A negative result does not exclude infection with
Streptococcus pneumoniae. Clinical correlation is
recommended.
07/24/24 16:27 Legionella Urinary Antigen - Final
Urine Negative for Legionella pneumophila Serogroup 1 antigen.
A negative result does not rule out the possiblity of
Legionella infection due to other serogroups or species of
Legionella. Clinical correlation is recommended.
07/23/24 13:44 Influenza Types A & B (MI) - Final
Nasal Swab Negative for Influenza A & B, NAAT
Negative results must be combined with clinical observations
and patient history.
Nucleic Acid Amplification test (NAAT)performed on the
[employer] platform.
07/23/24 CXR: On the frontal view, somewhat pointed defined opacity projecting over the right upper lung, as described above. This most likely represents pneumonia.
07/24/[address]: Overall moderate nonacute sinusitis.Bilateral patent ostiomeatal complexes.Moderate right nasal septal deviation.
07/26/24 CT chest/abd/pelvis with IV and po contrast: Multifocal pneumonia, worst in the right upper and left lower lobes. Recommend follow-up imaging after treatment to rule out underlying neoplasm.
Care Review
Plan reviewed with: Physician (Drs. Byrne and Nanci Mead)
[2024-07-31 12:00] VITALS: BP 132/73
--- NOTE | 2024-07-31 15:27 | W.PN.ONC ---
Today's Communication / Plan
-
d/c 08/01 on continued anti-infectives, if afebrile
f/u with Dr. Byrne 08/03
Impression
Impression
AML, on Vidaza/Venetoclax
Febrile neutropenia, suspected right pneumonia +/- sinusitis+/- acute cystitis
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
Plan
Plan
Continue anti-infectives per ID
Will need prolonged voriconazole, also levaquin and acyclovir for ppx
Monitor CBC, transfuse hgb < 7, platelets < 15-20.
07/18/24 BM bx at [place] showed residual leukemia. For next cycle of vidaza/olivier next week, though he requests to postpone x 1 week due to deconditioning and recovery from infection. I'll see him in the office on 08/03.
Subjective/Objective
Subjective/Objective
feels weak and appetite is poor, but no focal complaints
Vital Signs:
Vital Signs
Temp Pulse Resp BP Pulse Ox
98.0 F 78 18 132/73 97
07/31/24 07:30 07/31/24 12:00 07/31/24 12:00 07/31/24 12:00 07/31/24 12:00
Lab Results:
Laboratory Data
WBC 0.1 10^3/uL (4.8-10.8) L* 07/31/24 06:12
Hgb 7.2 g/dL (13.0-18.0) L 07/31/24 06:12
Plt Count 19 10^3/uL (130-400) L* D 07/31/24 06:12
eGFR > 60.00 07/31/24 06:12
Orders
Orders
Orders From Last 24 Hours
07/31/24 09:58
Incentive Spirometry [Rx Incentive Spirometry] [RESP] Routine
[2024-07-31 15:35] VITALS: BP 148/68
[2024-07-31 16:35] VITALS: BP 132/73; PULSE 74; O2SAT 97
--- NOTE | 2024-07-31 16:50 | CM ---
Plan: Discharge tomorrow with home health; referral sent to [facility]
[2024-07-31 19:00] VITALS: BP 134/68
[2024-07-31] MEDS: LIPITOR 80 MG PO (21:34)
[2024-07-31 23:00] VITALS: BP 137/66
[2024-08-01 05:47] VITALS: BMI 21.7
[2024-08-01 06:19] LABS: % Lymphocytes 61.5 % (20.5-51.1); % Monocytes 23.1 % (1.7-9.3); % Neutrophils 15.4 % (42.2-75.2); Absolute Lymphocytes 0.1 10^3/uL (1.2-3.4); Hematocrit 19.4 % (39.0-52.0); Hemoglobin 6.9 g/dL (13.0-18.0); Mean Corp Hgb Conc. 34.7 g/dL (33.0-37.0); Mean Corpuscular Hgb 27.9 pg (27.0-31.0); Mean Corpuscular Volume 80.6 fL (80.0-94.0); Nucleated Red Blood Cells % 0 % (-); Platelet Count 10 10^3/uL (130-400); Red Blood Cell Count 2.47 10^6/uL (4.70-6.10); Red Cell Dist. Width 13.5 % (11.5-14.5); White Blood Cell Count 0.1 10^3/uL (4.8-10.8)
[2024-08-01 06:27] LABS: Blood Urea Nitrogen 25 mg/dl (9-20); Calcium 7.9 mg/dl (8.4-10.2); Carbon Dioxide 30 mmol/L (22-30); Chloride 102 mmol/L (98-107); Estimated Creatinine Clearance 75 ml/min; Glucose 131 mg/dl (70-99); Potassium 4.3 mmol/L (3.5-5.1); Sodium 134 mmol/L (135-145); eGFR > 60.00
--- NOTE | 2024-08-01 06:30 | W.PN.UPDATE ---
Update Note
Progress Note Update
-Hgb 6.9 and Platelets 10 this am.
-One unit of blood and platelets ordered.
--- NOTE | 2024-08-01 07:24 | W.PN.ONC2 ---
Today's Communication / Plan
-
Transfuse as above. Stable for discharge with outpatient follow-up 08/03 with Rosalia Byrne.
Impression
Impression
AML, on Vidaza/Venetoclax
Febrile neutropenia, suspected right pneumonia +/- sinusitis+/- acute cystitis
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
Plan
Plan
Continue anti-infectives per ID
Will need prolonged voriconazole, also levaquin and acyclovir for ppx
Monitor CBC, transfuse hgb < 7, platelets < 15-20. As mentioned above getting transfused today.
07/18/24 BM bx at [place] showed residual leukemia. For next cycle of vidaza/olivier next week, though he requests to postpone x 1 week due to deconditioning and recovery from infection. Has [facility] follow up office on 08/03.
For discharge after transfusions later today.
Subjective/Objective
Chief Complaint
ACS heme-onc follow-up
Subjective
Patient was switched to oral voriconazole. He remains on a variety of other prophylactic antibiotics including acyclovir, levofloxacin. Patient for transfusion of PRBC x 1 unit and plt x 1 unit today for Hgb = 6.9 and PLT = 10,000. Some visual
hallucinations when he first opens his eyes that he describes as stars.
Vital Signs:
Vital Signs
Temp Pulse Resp BP Pulse Ox
98.8 F 91 14 137/66 94
08/01/24 03:00 07/31/24 23:00 07/31/24 23:00 07/31/24 23:00 07/31/24 23:00
Lab Results:
Laboratory Data
WBC 0.1 10^3/uL (4.8-10.8) L* 08/01/24 05:28
Hgb 6.9 g/dL (13.0-18.0) L* 08/01/24 05:28
Plt Count 10 10^3/uL (130-400) L* D 08/01/24 05:28
eGFR > 60.00 08/01/24 05:28
Physical Exam
Chronically ill cachectic man but no acute distress
Cardiology: S1 and S2
Pulmonary: Clear
GI: Soft
Extremities: No C/C/E
[2024-08-01 08:05] VITALS: BP 131/68
[2024-08-01] MEDS: ZYLOPRIM 300 MG PO (08:25)
[2024-08-01] MEDS: ZOVIRAX 400 MG PO ×2 (08:25→20:36)
[2024-08-01] MEDS: LEVAQUIN 500 MG PO (08:25)
[2024-08-01] MEDS: VFEND 200 MG PO ×2 (08:26→20:36)
--- NOTE | 2024-08-01 09:13 | W.PN.HOSP.TC ---
Today's Communication/Plan
-
1plt/1prbc today
IV Lasix x 1
oral voriconazole course started
hold off DC today
Assessment / Plan
Assessment / Plan
Assessment:
Acute neutropenic fever and sepsis (POA - fever, leukopenia) due to multifocal PNA and Acute Sinusitis
-likely sepsis due to RUL PNA, POA
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 transfuse Hb <7.0 and platelets <20
-ANC currently near 0
-Hematology following
-cont Voriconazole x 2-3 months with weekly labs
-Aspergillosis galactomannan assay and Fungitell pending
-s/p Cefepime and Merrem course
-continue Acyclovir/Levaquin for prophylaxis
-ID following
-viral respiratory panel NEG, strep/legionella urinary Ags NEG
-remains febrile
-BCxs NGTD
Iatrogenic volume overload in setting of multiple blood product transfusions
- IV Lasix x 1 and reassess in AM for further dosing
Reported hallucinations likely side effect of voriconazole
HLD: Cont statin
Gout - on Allopurinol
Situation remains warned of high risk.
DVT ppx: SCDs
CodE: Full
Anticipated Discharge: 24 - 48 hours
Subjective/Interval History
-
Date of Service: August 01, 2024
some mild SOB and noted crackles per ID
denies any other complaints
Objective Data
-
Labs:
Laboratory Results
08/01/24
05:28
WBC 0.1 L*
Hgb 6.9 L*
Hct 19.4 L*
Plt Count 10 L* D
Sodium 134 L
Potassium 4.3
Chloride 102
Carbon Dioxide 30
BUN 25 H
Creatinine 0.9
Glucose 131 H
Calcium 7.9 L
Vital Signs:
Vital Signs
Temp Pulse Resp BP Pulse Ox
97.9 F 78 16 131/68 94
08/01/24 08:05 08/01/24 08:05 08/01/24 08:05 08/01/24 08:05 07/31/24 23:00
I&O
07/31/24 08/01/24 08/02/24
06:59 06:59 06:59
Intake Total 982 / 982 960 / 960
Output Total 1000 / 1000 1825 / 1825
Balance -18 / -18 -865 / -865
Physical Exam
-
General: No Apparent Distress
HEENT: Normocephalic and Atraumatic
Respiratory: Crackles
Cardiac: Regular Rhythm and S1/S2
GI: Soft and Nontender
Neuro: AO x 3
Psych: Calm
Data Reviewed
-
Total Time Spent with Patient (in minutes): 45
Labs: Labs Reviewed by me
--- NOTE | 2024-08-01 10:25 | CM ---
CM following for discharge planning. Pt to be diuresed today, possible discharge in 24 hours.
Plan: Discharge to home with [facility] when medically cleared. Referral to [facility] in [facility].
[2024-08-01] MEDS: LASIX 40 MG IV (11:11)
[2024-08-01 12:00] VITALS: BP 125/71
[2024-08-01 12:25] VITALS: BP 134/75
[2024-08-01 14:06] VITALS: BP 135/70
--- NOTE | 2024-08-01 14:47 | W.PN.ID1 ---
Date of Service
Date of Service: August 01, 2024
Today's Communication
See below.
Assessment / Plan
# Suspect fungal PNA
# Fever - resolved while antifungal
# Sinusitis: no fungus ball in CT sinus
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
# Chronic profound neutropenia ANC =0
# Chronic pancytopenia, transfusion dependent
# Hallucination last night - due to voriconazole
# Suspect pulm edema today (new crackles) from multiple transfusions. Hospitalist aware, for IV furosemide.
- COVID/Flu neg
-Blood cx neg to date
- urine legionella ag and strep pneumo Ag neg
-UA neg
- respiratory virus pcr panel neg
- s/p 5d cefepime followed by 3d meropenem, dc'd 07/30
- CT c/a/p w IV and po contrast: Multifocal pneumonia, worst in the right upper and left lower lobes. Recommend follow-up imaging after treatment to rule out underlying neoplasm.
- Concern for fungal pneumonia as pt was unable to take posaconazole ppx due to interaction with atorvastatin; atorvastatin for CVD, not for HLD
- Aspergillosis galactomannan assay and Fungitell both negative, likely false negative due to profound immunosuppression.
- Fever resolved on antifungal micafungin
- 07/31 s/p Loading with IV voriconazole 450mg IV q12 x 2 doses.
Hallucination likely due to high dose voriconazole.
- Today started on lower dose voriconazole 200mg po bid
Monitor for recurrence of hallucination, visual changes.
If tolerates po Voriconazole 200mg po bid , continue 2-3 months and/or until repeat CT chest shows resolution of infiltrates.
- Voriconazole can potentially increase atorvastatin level. Monitor weekly CK, LFT's at Infusion center. Lab script provided to pt.
Check Voriconazole trough level next week at Infusion center. Lab script provided
- Discussed with patient to avoid sun exposure while on Vori.
Monitor for vision changes. Should have baseline outpt ophtho exam; discussed with patient.
-Continue ppx Acyclovir and levofloxacin.
- Follow up with me upon discharge in 2-3 weeks.
Chief Complaint
-: Fever and Pneumonia
Subjective / Review of Systems
c/o of seeing images while eyes closed last night. Also some flashes of light lasting 2 min.
No visual changes or hallucinations today.
c/o increased cough, non productive.
No N/V/D/rectal pain/urine symptoms
Sinus discomfort resolving.
Vital Signs / Physical Exam
Vital Signs
Vital Signs
Temp Pulse Resp BP Pulse Ox
98.2 F 86 16 135/70 94
08/01/24 14:06 08/01/24 14:06 08/01/24 14:06 08/01/24 14:06 07/31/24 23:00
Physical Exam
Constitutional: No Acute Distress and Chronically Ill
Head: Other (No frontal or maxillary sinus tenderness)
Eyes: No Conjunctival Hemorrhage and Sclera Anicteric
Oropharyngeal: Benign; Negative Exudate or Ulcers
Cardiovascular: Regular Rate and S1/S2
Pulmonary: Rales (Crackles bilateral bases)
Gastrointestinal: Soft, Non Tender, Non Distended and Normal Bowel Sounds
Genito-Urinary: Negative CVA Tenderness
Extremities: Negative Edema
Musculoskeletal: Negative Spinal Tenderness
Skin: Negative Jaundice
Neurological: AO x 3
Objective Data
Lab Data
Lab Results
08/01/24 05:28
08/01/24 05:28
Estimated Creat Clear 75 ml/min 08/01/24 05:28
Lactic Acid Cancelled 07/23/24 21:30
Total Bilirubin 1.7 mg/dl (0.2-1.3) H 07/24/24 04:59
AST 26 U/L (17-59) 07/24/24 04:59
ALT 31 U/L (0-50) 07/24/24 04:59
Alkaline Phosphatase 62 U/L (38-126) 07/24/24 04:59
Most recent labs reviewed.
Micro Results:
07/24/24 22:23 Blood Culture - Final
Blood/Venous No Growth - Final Report
07/24/24 21:40 Blood Culture - Final
Blood/Venous No Growth - Final Report
07/23/24 17:42 Blood Culture - Final
Blood/Venous No Growth - Final Report
07/23/24 13:44 Blood Culture - Final
Blood/Venous No Growth - Final Report
07/26/24 12:21 Influenza Type A (PCR) - Final
Nasalpharynx Not Detected
Influenza Type A (H1) (PCR) - Final
Not Detected
Influenza Type A (H3) (PCR) - Final
Not Detected
Influenza Type B (PCR) - Final
Not Detected
Resp Syncytial Virus Type A (PCR) - Final
Not Detected
Resp Syncytial Virus Type B (PCR) - Final
Not Detected
Adenovirus DNA (PCR) - Final
Not Detected
Human Metapneumovirus (PCR) - Final
Not Detected
Parainfluenza Virus Type 1 (PCR) - Final
Not Detected
Parainfluenza Virus Type 2 (PCR) - Final
Not Detected
Parainfluenza Virus Type 3 (PCR) - Final
Not Detected
Parainfluenza Virus Type 4 - Final
Not Detected
Rhinovirus (PCR) - Final
Not Detected
07/24/24 16:27 Streptococcus pneumoniae Antigen (M - Final
Urine Negative for Streptococcus pneumoniae antigen.
A negative result does not exclude infection with
Streptococcus pneumoniae. Clinical correlation is
recommended.
07/24/24 16:27 Legionella Urinary Antigen - Final
Urine Negative for Legionella pneumophila Serogroup 1 antigen.
A negative result does not rule out the possiblity of
Legionella infection due to other serogroups or species of
Legionella. Clinical correlation is recommended.
07/23/24 13:44 Influenza Types A & B (MI) - Final
Nasal Swab Negative for Influenza A & B, NAAT
Negative results must be combined with clinical observations
and patient history.
Nucleic Acid Amplification test (NAAT)performed on the
[employer] platform.
07/23/24 CXR: On the frontal view, somewhat pointed defined opacity projecting over the right upper lung, as described above. This most likely represents pneumonia.
07/24/[address]: Overall moderate nonacute sinusitis.Bilateral patent ostiomeatal complexes.Moderate right nasal septal deviation.
07/26/24 CT chest/abd/pelvis with IV and po contrast: Multifocal pneumonia, worst in the right upper and left lower lobes. Recommend follow-up imaging after treatment to rule out underlying neoplasm.
Care Review
Plan reviewed with: Physician (Dr. Nanci Mead)
[2024-08-01 15:40] VITALS: BP 135/73
--- NOTE | 2024-08-01 15:59 | VNURNOTE ---
Home Health Liaison met with patient at bedside to discuss [facility] nurse/therapy, visits, schedule and homebound status. Patient is agreeable and understands that visits at home will be 2-3 x per week to assess and teach medical management. Patient is
aware that [facility] will contact them for start of care in 1-2 days after discharge from .
[facility] referral accepted in [facility].
[2024-08-01] MEDS: LIPITOR 80 MG PO (21:54)
[2024-08-01 23:43] VITALS: BP 137/66
[2024-08-02 06:41] LABS: Hematocrit 22.2 % (39.0-52.0); Hemoglobin 7.7 g/dL (13.0-18.0); Mean Corp Hgb Conc. 34.7 g/dL (33.0-37.0); Mean Corpuscular Hgb 28.4 pg (27.0-31.0); Mean Corpuscular Volume 81.9 fL (80.0-94.0); Mean Platelet Volume 10.9 fL (7.4-10.4); Platelet Count 9 10^3/uL (130-400); Red Blood Cell Count 2.71 10^6/uL (4.70-6.10); Red Cell Dist. Width 13.8 % (11.5-14.5); White Blood Cell Count 0.1 10^3/uL (4.8-10.8)
--- NOTE | 2024-08-02 06:53 | W.PN.UPDATE ---
Update Note
Progress Note Update
Platelets 9 this am. One unit of platelets ordered.
[2024-08-02 07:07] LABS: Blood Urea Nitrogen 26 mg/dl (9-20); Calcium 8.1 mg/dl (8.4-10.2); Carbon Dioxide 29 mmol/L (22-30); Chloride 101 mmol/L (98-107); Estimated Creatinine Clearance 67 ml/min; Glucose 127 mg/dl (70-99); Potassium 4.1 mmol/L (3.5-5.1); Sodium 135 mmol/L (135-145); eGFR > 60.00
[2024-08-02 07:43] LABS: % Lymphocytes 71.4 % (20.5-51.1); % Monocytes 28.6 % (1.7-9.3); Absolute Lymphocytes 0.1 10^3/uL (1.2-3.4); Nucleated Red Blood Cells % 0 % (-)
[2024-08-02 07:52] VITALS: BP 128/65
[2024-08-02 08:36] VITALS: BMI 21.5
[2024-08-02] MEDS: ZYLOPRIM 300 MG PO (08:44)
[2024-08-02] MEDS: ZOVIRAX 400 MG PO (08:44)
[2024-08-02] MEDS: VFEND 200 MG PO (08:44)
[2024-08-02] MEDS: LEVAQUIN 500 MG PO (08:44)
[2024-08-02 11:23] VITALS: BP 97/56
[2024-08-02 11:40] VITALS: BP 112/68
--- NOTE | 2024-08-02 12:01 | W.PN.HOSP.TC ---
Today's Communication/Plan
-
dc to home/[facility]
Assessment / Plan
Assessment / Plan
Assessment:
Acute neutropenic fever and sepsis (POA - fever, leukopenia) due to multifocal PNA and Acute Sinusitis
-likely sepsis due to RUL PNA, POA
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 transfuse Hb <7.0 and platelets <20
-ANC currently near 0
-Hematology following
-cont Voriconazole x 2-3 months with weekly labs
-Aspergillosis galactomannan assay and Fungitell pending
-s/p Cefepime and Merrem course
-continue Acyclovir/Levaquin for prophylaxis
-ID following
-viral respiratory panel NEG, strep/legionella urinary Ags NEG
-remains febrile
-BCxs NGTD
Iatrogenic volume overload in setting of multiple blood product transfusions
- IV Lasix x 1
- weight slightly down
Reported hallucinations likely side effect of voriconazole
HLD: Cont statin
Gout - on Allopurinol
Situation remains warned of high risk.
DVT ppx: SCDs
CodE: Full
More than 30 minutes spent in discharge including
Final examination of the patient
Summarizing hospital stay
Instructions for continuing care to all relevant caregivers
Preparation of discharge records, prescriptions, and referral forms
Total time spent (in minutes): 41
Anticipated Discharge: Today
Subjective/Interval History
-
Date of Service: August 02, 2024
resting comfortably, no complaints
Objective Data
-
Labs:
Laboratory Results
08/02/24
05:31
WBC 0.1 L*
Hgb 7.7 L
Hct 22.2 L
Plt Count 9 L*
Sodium 135
Potassium 4.1
Chloride 101
Carbon Dioxide 29
BUN 26 H
Creatinine 1.0
Glucose 127 H
Calcium 8.1 L
Vital Signs:
Vital Signs
Temp Pulse Resp BP Pulse Ox
98.3 F 84 15 112/68 98
08/02/24 11:40 08/02/24 11:40 08/02/24 11:40 08/02/24 11:40 08/02/24 11:40
I&O
08/01/24 08/02/24 08/03/24
06:59 06:59 06:59
Intake Total 960 / 960 1468 / 1468 0 / 0
Output Total 1825 / 1825 825 / 825
Balance -865 / -865 643 / 643 0 / 0
Physical Exam
-
General: No Apparent Distress
HEENT: Normocephalic and Atraumatic
Respiratory: Negative Wheezes
Cardiac: Regular Rhythm and S1/S2
GI: Soft and Nontender
Genito-urinary: No Costovertebral Tender
Musculoskeletal: No Edema
Neuro: AO x 3
Hematologic / Lymphatic: No Lymphadenopathy
Psych: Calm
Data Reviewed
-
Total Time Spent with Patient (in minutes): 41
Labs: Labs Reviewed by me
--- NOTE | 2024-08-02 12:17 | W.DS.TRANS ---
DC Summary - Pot Puncher
-
Discharge Instructions:
Discharge Diagnosis/Procedures Neutropenic fever (with sepsis), Fungal
pneumonia, transfusion dependent AML
Diet 2 Gram Sodium,Low Cholesterol
Activity As tolerated
Blood Work weekly Voriconazole level, along with weekly CK
and LFTs - Oncology/ID office will arrange
Other Services [facility]
Instructions:
Stand-Alone Forms:
Changes to Home Medications: No
Discharge Medications:
DC Medications w/original date entered in [employer]
Lactobac no.2-Bifidobac no.1-S. thermo 112.5 billion cell capsule (Visbiome) 1 cap PO DAILY Supplement ##0 12/31/23
famotidine 20 mg tablet 20 mg PO [id number] PRN NAUSEA 12/31/23
polyethylene glycol 3350 17 gram oral powder packet 17 g PO DAILYPRN PRN constipation 12/31/23
sodium chloride 0.65 % nasal spray aerosol 1 spray intranasal BID Congestion 12/31/23
zolpidem 5 mg tablet 5 mg PO HSPRN PRN insomnia 12/31/23
allopurinol 300 mg tablet 300 mg PO DAILY Gout #0 tabs 01/09/24
cyanocobalamin (vitamin B-12) 1,000 mcg tablet 1,000 mcg PO DAILY supplement 30 days #30 tabs 01/09/24
ondansetron HCl 8 mg tablet 8 mg PO Q6HPRN PRN nausea 01/23/24
docusate sodium 100 mg capsule (Colace) 100 mg PO DAILYPRN PRN constipation 02/16/24
loratadine 10 mg tablet (Claritin) 10 mg PO DAILYPRN PRN neulasta injection 02/16/24
atorvastatin 80 mg tablet 80 mg PO HS cholesterol 04/03/24
venetoclax 100 mg tablet 400 mg PO DIRECTED Antineoplastic Agent 06/26/24
ergocalciferol (vitamin D2) 1,250 mcg (50,000 unit) capsule 1,250 mcg PO WE vitamin D deficiency 07/23/24
djploolkecmcx-UD-xtkxmmfmdkypt-guaif 5 mg-10 mg-325 mg-200mg/15 mL liq (Theraflu ExpressMax Severe Cold-Flu) 15 ml PO DAILYPRN PRN COLD AND COUGH 07/23/24
acyclovir 400 mg tablet 400 mg PO BID ANTIVIRAL #60 tabs 08/02/24
levofloxacin 500 mg tablet 500 mg PO DAILY prophylasis #30 tabs 08/02/24
voriconazole 200 mg tablet 200 mg PO Q12 #60 tabs 08/02/24
Home Medication Changes
Pending Results: No
Total time spent discharging patient (in min): 41
[2024-08-02 12:20] VITALS: BP 130/61
--- NOTE | 2024-08-02 12:28 | PTCARENOTE ---
verbal report provided to Mekhi MENDOSA.
--- NOTE | 2024-08-02 13:07 | W.PN.ONC2 ---
Today's Communication / Plan
-
.
Impression
Impression
AML, on Vidaza/Venetoclax
Febrile neutropenia, suspected right pneumonia +/- sinusitis+/- acute cystitis
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
Plan
Plan
Continue anti-infectives per ID
Will need prolonged voriconazole, also levaquin and acyclovir for ppx
Monitor CBC, transfuse hgb < 7, platelets < 15-20. As mentioned above getting transfused today.
07/18/24 BM bx at [place] showed residual leukemia. For next cycle of vidaza/olivier next week, though he requests to postpone x 1 week due to deconditioning and recovery from infection. Has [facility] follow up office on 08/03.
For discharge after transfusions later today.
Subjective/Objective
Subjective
no new complaints
Tmax 100.1F
denies bleeding
Vital Signs:
Vital Signs
Temp Pulse Resp BP Pulse Ox
98.3 F 84 15 112/68 98
08/02/24 11:40 08/02/24 11:40 08/02/24 11:40 08/02/24 11:40 08/02/24 11:40
Lab Results:
Laboratory Data
WBC 0.1 10^3/uL (4.8-10.8) L* 08/02/24 05:31
Hgb 7.7 g/dL (13.0-18.0) L 08/02/24 05:31
Plt Count 9 10^3/uL (130-400) L* 08/02/24 05:31
eGFR > 60.00 08/02/24 05:31
Physical Exam
HEENT: Moist Mucous Membranes; No Jaundice
Cardiology: Normal Sinus Rhythm
Pulmonary: Clear
GI: Soft
Extremities: Pulses Present; No Edema
[2024-08-02 13:35] VITALS: BP 114/64
--- NOTE | 2024-08-02 14:19 | CM ---
Philip is cleared for discharge today. I spoke with him and he is agreeable to discharge. IMM reviewed verbally, consent provided by Philip. His son will drive him home today via car.
Plan: Discharge to home today with [facility] the [facility].
VN
== END 2024-08-02 15:03 | disposition home health service (06) | DRG 871 ==
LOC: 3 WEST ACU 20:52
PROVIDERS: Internal Medicine; Nurse Practitioner Family; ADMITTING PHYSICIAN Internal Medicine; ATTENDING PHYSICIAN Internal Medicine; CONSULT PHYSICIAN Internal Medicine Infectious Disease; EMERGENCY PHYSICIAN Emergency Medicine; FAMILY PHYSICIAN Family Medicine; OTHER PHYSICIAN Internal Medicine Hematology & Oncology
PROC: 30233R1 Transfusion of Nonautologous Platelets into Peripheral Vein, Percutaneous Approach (ICD-10-PCS; 2024-07-23)
PROC: 30233N1 Transfusion of Nonautologous Red Blood Cells into Peripheral Vein, Percutaneous Approach (ICD-10-PCS; 2024-07-24)
DX: A41.9 Sepsis, unspecified organism (principal); J16.8 Pneumonia due to other specified infectious organisms; C92.00 Acute myeloblastic leukemia, not having achieved remission; R44.3 Hallucinations, unspecified; D61.818 Other pancytopenia; D70.9 Neutropenia, unspecified; R50.81 Fever presenting with conditions classified elsewhere; E78.00 Pure hypercholesterolemia, unspecified; M10.9 Gout, unspecified; J01.90 Acute sinusitis, unspecified; Z79.899 Other long term (current) drug therapy; Z11.52 Encounter for screening for COVID-19
CPT/HCPCS: 70486; 71046; 71260; 74177; 80048; 80053; 81003; 81015; 83605; 83735; 85025; 85027; 86850; 86900; 86901; 86920; 87040; 87449; 87502; 87633; 87811; 87899; 96374; 97162; 97166; 97530; 99285; J3465; P9058; P9073; Q9967

== ENCOUNTER 2024-08-08 09:06 | Outpatient (RCR) | payer MEDICARE, BC, SELFPAY ==
[2024-07-16 09:20] LABS: Hematocrit 17.4 % (39.0-52.0); Hemoglobin 6.1 g/dL (13.0-18.0); Mean Corp Hgb Conc. 35.1 g/dL (33.0-37.0); Mean Corpuscular Hgb 28.5 pg (27.0-31.0); Mean Corpuscular Volume 81.3 fL (80.0-94.0); Mean Platelet Volume 9.9 fL (7.4-10.4); Platelet Count 4 10^3/uL (130-400); Red Blood Cell Count 2.14 10^6/uL (4.70-6.10); Red Cell Dist. Width 13.7 % (11.5-14.5); White Blood Cell Count 0.2 10^3/uL (4.8-10.8)
[2024-07-16 09:31] LABS: ALT (SGPT) 16 U/L (0-50); AST (SGOT) 16 U/L (17-59); Albumin 3.3 g/dl (3.5-5.0); Alkaline Phosphatase 75 U/L (38-126); Blood Urea Nitrogen 18 mg/dl (9-20); Calcium 8.8 mg/dl (8.4-10.2); Carbon Dioxide 28 mmol/L (22-30); Chloride 106 mmol/L (98-107); Glucose 118 mg/dl (70-99); Potassium 4.1 mmol/L (3.5-5.1); Sodium 143 mmol/L (135-145); Total Bilirubin 0.6 mg/dl (0.2-1.3); Total Protein 5.2 g/dl (6.3-8.2); eGFR > 60.00
[2024-07-17] VITALS (10 sets, daily range): BP systolic 95–128; BP diastolic 50–63
[2024-07-23 09:28] LABS: ALT (SGPT) 25 U/L (0-50); AST (SGOT) 19 U/L (17-59); Albumin 3.2 g/dl (3.5-5.0); Blood Urea Nitrogen 19 mg/dl (9-20); Carbon Dioxide 29 mmol/L (22-30); Chloride 103 mmol/L (98-107); Glucose 205 mg/dl (70-99); Potassium 4.1 mmol/L (3.5-5.1); Sodium 139 mmol/L (135-145); Total Protein 5.4 g/dl (6.3-8.2); eGFR > 60.00
[2024-07-23 09:46] LABS: % Lymphocytes 55.6 % (20.5-51.1); % Monocytes 33.3 % (1.7-9.3); % Neutrophils 11.1 % (42.2-75.2); Absolute Lymphocytes 0.1 10^3/uL (1.2-3.4); Absolute Monocytes 0.1 10^3/uL (0.1-0.6); Hemoglobin 7.3 g/dL (13.0-18.0); Mean Corp Hgb Conc. 34.8 g/dL (33.0-37.0); Mean Corpuscular Volume 80.5 fL (80.0-94.0); Nucleated Red Blood Cells % 0 % (-); Platelet Count 5 10^3/uL (130-400); Red Blood Cell Count 2.61 10^6/uL (4.70-6.10); Red Cell Dist. Width 13.6 % (11.5-14.5); White Blood Cell Count 0.2 10^3/uL (4.8-10.8)
[2024-07-23 10:14] LABS: Alkaline Phosphatase 72 U/L (38-126); Calcium 8.7 mg/dl (8.4-10.2)
[2024-08-07 09:55] LABS: Creatine Phosphokinase 704 U/L (55-170)
[2024-08-07 09:56] LABS: ALT (SGPT) 147 U/L (0-50); AST (SGOT) 102 U/L (17-59); Albumin 2.8 g/dl (3.5-5.0); Alkaline Phosphatase 123 U/L (38-126); Blood Urea Nitrogen 52 mg/dl (9-20); Calcium 8.2 mg/dl (8.4-10.2); Carbon Dioxide 30 mmol/L (22-30); Chloride 102 mmol/L (98-107); Glucose 136 mg/dl (70-99); Potassium 4.3 mmol/L (3.5-5.1); Sodium 134 mmol/L (135-145); Total Bilirubin 1.2 mg/dl (0.2-1.3); Total Protein 5.4 g/dl (6.3-8.2); eGFR 48.25
[2024-08-07 10:18] LABS: % Lymphocytes 62.5 % (20.5-51.1); % Neutrophils 12.5 % (42.2-75.2); Absolute Lymphocytes 0.1 10^3/uL (1.2-3.4); Hematocrit 19.7 % (39.0-52.0); Hemoglobin 6.7 g/dL (13.0-18.0); Mean Corpuscular Hgb 28.6 pg (27.0-31.0); Mean Corpuscular Volume 84.2 fL (80.0-94.0); Nucleated Red Blood Cells % 0 % (-); Platelet Count 5 10^3/uL (130-400); Red Blood Cell Count 2.34 10^6/uL (4.70-6.10); Red Cell Dist. Width 13.7 % (11.5-14.5); White Blood Cell Count 0.2 10^3/uL (4.8-10.8)
[2024-08-08] VITALS (10 sets, daily range): BP systolic 116–142; BP diastolic 40–65
[2024-08-08] MEDS: TYLENOL 650 MG PO (09:36)
--- NOTE | 2024-08-08 16:10 | DOWNTIME ---
There was a [employer] Client Trust Manager Assistant Downtime on 08/08/2024 from 1230 to 08/08/2024 at 1550. Downtime documentation of patient's care, including medication administrations, has been reconciled in the electronic record per guidelines. Refer to the
patient's paper chart under the miscellaneous tab to see printed paper medication records and downtime forms.
== END 2024-08-10 14:58 | disposition home or self-care (01) ==
LOC: OID 09:06
PROVIDERS: ATTENDING PHYSICIAN Internal Medicine Hematology & Oncology; FAMILY PHYSICIAN Family Medicine; REFERRING PHYSICIAN Internal Medicine Infectious Disease
DX: C92.00 Acute myeloblastic leukemia, not having achieved remission (principal); Z51.11 Encounter for antineoplastic chemotherapy; D61.9 Aplastic anemia, unspecified
CPT/HCPCS: 36415; 36430; 80053; 82550; 85025; 86850; 86900; 86901; 86920; P9058; P9073

== ENCOUNTER 2024-08-31 08:26 | Outpatient (RCR) | payer MEDICARE, BC, SELFPAY ==
[2024-08-13] VITALS (7 sets, daily range): BP systolic 114–126; BP diastolic 53–89
[2024-08-13 08:52] LABS: % Lymphocytes 62.5 % (20.5-51.1); % Monocytes 31.3 % (1.7-9.3); % Neutrophils 6.2 % (42.2-75.2); Absolute Lymphocytes 0.1 10^3/uL (1.2-3.4); Absolute Monocytes 0.1 10^3/uL (0.1-0.6); Mean Corp Hgb Conc. 34.2 g/dL (33.0-37.0); Mean Corpuscular Hgb 29.5 pg (27.0-31.0); Mean Corpuscular Volume 86.2 fL (80.0-94.0); Mean Platelet Volume 10.3 fL (7.4-10.4); Red Blood Cell Count 2.17 10^6/uL (4.70-6.10); Red Cell Dist. Width 13.4 % (11.5-14.5)
[2024-08-13 09:06] LABS: Hematocrit 18.7 % (39.0-52.0); Hemoglobin 6.4 g/dL (13.0-18.0); Platelet Count 6 10^3/uL (130-400); White Blood Cell Count 0.2 10^3/uL (4.8-10.8)
[2024-08-13 09:17] LABS: AST (SGOT) 26 U/L (17-59); Albumin 2.5 g/dl (3.5-5.0); Alkaline Phosphatase 104 U/L (38-126); Blood Urea Nitrogen 47 mg/dl (9-20); Calcium 7.8 mg/dl (8.4-10.2); Carbon Dioxide 23 mmol/L (22-30); Chloride 108 mmol/L (98-107); Glucose 175 mg/dl (70-99); Potassium 4.3 mmol/L (3.5-5.1); Sodium 137 mmol/L (135-145); Total Bilirubin 0.7 mg/dl (0.2-1.3); eGFR > 60.00
[2024-08-13 09:27] LABS: ALT (SGPT) 52 U/L (0-50)
[2024-08-13] MEDS: DECADRON 50.8 MG IV (10:02)
[2024-08-13] MEDS: ALOXI 5 MG IV (10:02)
[2024-08-13] MEDS: VIDAZA 100 MG IV (10:27)
[2024-08-13 16:16] LABS: Creatine Phosphokinase 59 U/L (55-170)
[2024-08-14] MEDS: VIDAZA 115 MG IV (11:30)
[2024-08-14 11:37] VITALS: BP 120/56
[2024-08-14 12:40] VITALS: BP 106/58
[2024-08-14 12:55] VITALS: BP 115/60
[2024-08-14 14:40] VITALS: BP 126/58
[2024-08-15 14:00] VITALS: BP 102/58
[2024-08-15] MEDS: VIDAZA 115 MG IV (14:06)
[2024-08-15 14:44] VITALS: BP 123/64
[2024-08-15 15:07] LABS: ALT (SGPT) 40 U/L (0-50); AST (SGOT) 31 U/L (17-59); Albumin 2.6 g/dl (3.5-5.0); Alkaline Phosphatase 93 U/L (38-126); Blood Urea Nitrogen 49 mg/dl (9-20); Calcium 8.2 mg/dl (8.4-10.2); Carbon Dioxide 27 mmol/L (22-30); Chloride 108 mmol/L (98-107); Creatine Phosphokinase 81 U/L (55-170); Glucose 165 mg/dl (70-99); Potassium 4.5 mmol/L (3.5-5.1); Sodium 138 mmol/L (135-145); Total Bilirubin 0.8 mg/dl (0.2-1.3); Total Protein 5.2 g/dl (6.3-8.2); eGFR > 60.00
[2024-08-16 11:30] VITALS: BP 123/67
[2024-08-16] MEDS: ALOXI 5 MG IV (11:52)
[2024-08-16] MEDS: VIDAZA 115 MG IV (11:53)
[2024-08-16 12:36] LABS: Hematocrit 20.6 % (39.0-52.0); Hemoglobin 7.1 g/dL (13.0-18.0); Mean Corp Hgb Conc. 34.5 g/dL (33.0-37.0); Mean Corpuscular Hgb 29.3 pg (27.0-31.0); Mean Corpuscular Volume 85.1 fL (80.0-94.0); Mean Platelet Volume 10.3 fL (7.4-10.4); Platelet Count 7 10^3/uL (130-400); Red Blood Cell Count 2.42 10^6/uL (4.70-6.10); Red Cell Dist. Width 13.5 % (11.5-14.5); White Blood Cell Count 0.1 10^3/uL (4.8-10.8)
[2024-08-17] VITALS (11 sets, daily range): BP systolic 101–151; BP diastolic 48–78
[2024-08-17] MEDS: VIDAZA 115 MG IV (09:07)
[2024-08-20 08:40] VITALS: BP 112/60
[2024-08-20 09:50] LABS: % Lymphocytes 88.9 % (20.5-51.1); % Monocytes 11.1 % (1.7-9.3); Absolute Lymphocytes 0.1 10^3/uL (1.2-3.4); Hematocrit 21.9 % (39.0-52.0); Hemoglobin 7.8 g/dL (13.0-18.0); Mean Corp Hgb Conc. 35.6 g/dL (33.0-37.0); Mean Corpuscular Volume 84.2 fL (80.0-94.0); Nucleated Red Blood Cells % 0 % (-); Platelet Count 4 10^3/uL (130-400); Red Cell Dist. Width 13.2 % (11.5-14.5); White Blood Cell Count 0.1 10^3/uL (4.8-10.8)
[2024-08-20] MEDS: ALOXI 5 MG IV (10:05)
[2024-08-20] MEDS: VIDAZA 115 MG IV (10:07)
[2024-08-20 10:10] LABS: ALT (SGPT) 24 U/L (0-50); AST (SGOT) 22 U/L (17-59); Albumin 2.4 g/dl (3.5-5.0); Alkaline Phosphatase 99 U/L (38-126); Blood Urea Nitrogen 35 mg/dl (9-20); Calcium 8.1 mg/dl (8.4-10.2); Carbon Dioxide 26 mmol/L (22-30); Chloride 103 mmol/L (98-107); Glucose 180 mg/dl (70-99); Sodium 136 mmol/L (135-145); Total CK 29 U/L (55-170); Total Protein 4.7 g/dl (6.3-8.2); eGFR > 60.00
[2024-08-21] VITALS (10 sets, daily range): BP systolic 94–136; BP diastolic 48–76
[2024-08-21] MEDS: VIDAZA 115 MG IV (09:11)
[2024-08-21 12:43] LABS: Platelet Count 11 10^3/uL (130-400)
[2024-08-23 11:11] VITALS: BP 80/47
[2024-08-23 11:17] VITALS: BP 80/47
[2024-08-23 11:34] VITALS: BP 80/47
[2024-08-23 11:51] VITALS: BP 94/45
[2024-08-23 12:36] VITALS: BP 114/53
[2024-08-23 13:04] LABS: % Lymphocytes 87.5 % (20.5-51.1); % Neutrophils 12.5 % (42.2-75.2); Absolute Lymphocytes 0.1 10^3/uL (1.2-3.4); Hematocrit 22.1 % (39.0-52.0); Hemoglobin 7.8 g/dL (13.0-18.0); Mean Corp Hgb Conc. 35.3 g/dL (33.0-37.0); Mean Corpuscular Hgb 29.9 pg (27.0-31.0); Mean Corpuscular Volume 84.7 fL (80.0-94.0); Mean Platelet Volume 11.5 fL (7.4-10.4); Nucleated Red Blood Cells % 0 % (-); Platelet Count 6 10^3/uL (130-400); Red Blood Cell Count 2.61 10^6/uL (4.70-6.10); Red Cell Dist. Width 13.1 % (11.5-14.5); White Blood Cell Count 0.1 10^3/uL (4.8-10.8)
[2024-08-27 11:35] LABS: ALT (SGPT) 23 U/L (0-50); AST (SGOT) 28 U/L (17-59); Albumin 2.3 g/dl (3.5-5.0); Alkaline Phosphatase 122 U/L (38-126); Blood Urea Nitrogen 30 mg/dl (9-20); Calcium 7.7 mg/dl (8.4-10.2); Carbon Dioxide 25 mmol/L (22-30); Chloride 103 mmol/L (98-107); Glucose 149 mg/dl (70-99); Potassium 4.2 mmol/L (3.5-5.1); Sodium 133 mmol/L (135-145); Total Protein 4.6 g/dl (6.3-8.2); eGFR > 60.00
[2024-08-27 12:47] LABS: % Lymphocytes 66.7 % (20.5-51.1); % Monocytes 13.3 % (1.7-9.3); Absolute Lymphocytes 0.1 10^3/uL (1.2-3.4); Hemoglobin 7.3 g/dL (13.0-18.0); Mean Corp Hgb Conc. 35.1 g/dL (33.0-37.0); Mean Corpuscular Hgb 30.3 pg (27.0-31.0); Mean Corpuscular Volume 86.3 fL (80.0-94.0); Red Blood Cell Count 2.41 10^6/uL (4.70-6.10); Red Cell Dist. Width 12.8 % (11.5-14.5)
[2024-08-27 12:51] LABS: Platelet Count 5 10^3/uL (130-400)
[2024-08-27 12:52] LABS: Hematocrit 20.8 % (39.0-52.0); White Blood Cell Count 0.2 10^3/uL (4.8-10.8)
[2024-08-27 14:07] LABS: Creatine Phosphokinase 43 U/L (55-170)
[2024-08-28] VITALS (9 sets, daily range): BP systolic 98–138; BP diastolic 40–66
[2024-08-30 13:52] LABS: % Lymphocytes 78.6 % (20.5-51.1); % Monocytes 14.3 % (1.7-9.3); % Neutrophils 7.1 % (42.2-75.2); Absolute Lymphocytes 0.1 10^3/uL (1.2-3.4); Hematocrit 24.5 % (39.0-52.0); Hemoglobin 8.7 g/dL (13.0-18.0); Mean Corp Hgb Conc. 35.5 g/dL (33.0-37.0); Mean Corpuscular Hgb 30.2 pg (27.0-31.0); Mean Corpuscular Volume 85.1 fL (80.0-94.0); Mean Platelet Volume 12.8 fL (7.4-10.4); Nucleated Red Blood Cells % 0 % (-); Platelet Count 7 10^3/uL (130-400); Red Blood Cell Count 2.88 10^6/uL (4.70-6.10); Red Cell Dist. Width 13.2 % (11.5-14.5); White Blood Cell Count 0.1 10^3/uL (4.8-10.8)
[2024-08-31 08:30] VITALS: BP 104/52
[2024-08-31 08:58] VITALS: BP 104/52
[2024-08-31 09:16] VITALS: BP 95/46
[2024-08-31 10:11] VITALS: BP 109/48
== END 2024-09-10 23:59 | disposition home or self-care (01) ==
LOC: OID 08:26
PROVIDERS: ATTENDING PHYSICIAN Internal Medicine Hematology & Oncology; FAMILY PHYSICIAN Family Medicine; REFERRING PHYSICIAN Internal Medicine Infectious Disease
DX: Z51.11 Encounter for antineoplastic chemotherapy (principal); C92.00 Acute myeloblastic leukemia, not having achieved remission; D61.9 Aplastic anemia, unspecified
CPT/HCPCS: 36415; 36430; 80053; 82550; 85025; 85049; 86850; 86900; 86901; 86920; 96365; 96367; 96374; 96375; 96413; J2469; J9025; P9058; P9073

== ENCOUNTER 2024-09-03 14:46 | Inpatient (IN) | payer MEDICARE, BC, SELFPAY ==
[2024-09-03] VITALS (19 sets, daily range): BP systolic 84–151; BP diastolic 51–85; BMI 21.5; BMI 20.6
[2024-09-03 11:16] LABS: % Lymphocytes 66.7 % (20.5-51.1); % Monocytes 33.3 % (1.7-9.3); Hemoglobin 6.7 g/dL (13.0-18.0); Mean Corp Hgb Conc. 35.3 g/dL (33.0-37.0); Mean Corpuscular Hgb 29.9 pg (27.0-31.0); Mean Corpuscular Volume 84.8 fL (80.0-94.0); Mean Platelet Volume 9.6 fL (7.4-10.4); Nucleated Red Blood Cells % 0 % (-); Platelet Count 4 10^3/uL (130-400); Red Blood Cell Count 2.24 10^6/uL (4.70-6.10); Red Cell Dist. Width 12.9 % (11.5-14.5); White Blood Cell Count 0.1 10^3/uL (4.8-10.8)
--- NOTE | 2024-09-03 11:47 | ED.GENMED ---
History of Present Illness
General
Chief Complaint: Blood Pressure Problem
Source: patient
Time Seen by Provider: 09/03/24 11:18
History of Present Illness
History of Present Illness:
Note:
CHIEF COMPLAINT(S)
Weakness and inability to ambulate.
HISTORY OF PRESENT ILLNESS
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 The hemoglobin level is 6.7 g/dL, and the platelet
count is critically low at 4,000/mm�. The patient reports no bleeding or black stools. The weakness began recently, correlating with chemotherapy treatment. The patient indicates that their usual oncologist is at [facility], but
they have also been treated by a electrodynamicist. The patient completed a chemotherapy regimen last week, including oral Biaxin (clarithromycin). The patient has been managing a concurrent fungal infection with antifungal medications for the past two
weeks. The patients blood pressure is noted as 84 systolic in the ER, with no focal neurological deficits or edema.
CHRONIC MEDICAL CONDITIONS SIGNIFICANTLY AFFECTING CARE
Chronic conditions affecting care: Acute Myeloid Leukemia, Myelodysplastic Syndrome.
CONSTITUTIONAL Patient alert and oriented to person, place and time. Somewhat cachectic. Vital signs reviewed.
HEAD atraumatic, normocephalic.
EYES eyelids normal to inspection, Extraocular muscles intact, Conjunctiva normal, Sclera normal.
NECK normal range of motion, Trachea midline, no jugular venous distention.
RESPIRATORY CHEST No respiratory distress noted, Chest expansion equal, Bilateral breath sounds clear.
CARDIOVASCULAR regular with ectopy, Heart sounds normal.
ABDOMEN abdomen nontender, Bowel sounds normal. No distention.
BACK normal inspection, no obvious deformities
UPPER EXTREMITY range of motion normal, Motor strength normal, no cyanosis, no edema.
LOWER EXTREMITY range of motion normal, Motor strength normal, no cyanosis, no edema.
NEURO Speech normal, No focal motor deficits, Randolph coma scale 15, Memory normal, Cranial Nerves intact to screening exam.
SKIN skin warm, dry, and scattered areas of ecchymosis
PLAN
The patient will receive a transfusion of two units of packed red blood cells and a packet of platelets, and will be monitored overnight in the hospital. Continuous reassessment of blood counts will be conducted to determine if further transfusions
are necessary. Coordination with the patients electrodynamicist and oncologist will occur regarding the ongoing management of AML and consideration for telemedicine follow-up.
DIFFERENTIAL DIAGNOSIS
The Differential Diagnosis includes, in no particular order and is not limited to:
1. Anemia secondary to chemotherapy
2. Thrombocytopenia
3. Leukemia progression
4. Myelodysplastic syndrome
5. Gastrointestinal bleeding
6. Cardiac arrhythmia contributing to weakness
7. Infection-related bone marrow suppression
8. Hemolytic anemia
9. Adverse drug reaction to recent chemotherapy
10. Dehydration or electrolyte imbalance due to decreased oral intake
Disposition:
SUMMARY OF ENCOUNTER
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 The patient has recently completed a
chemotherapy regimen and reports weakness starting shortly afterward. Initial lab results indicated severe anemia with a hemoglobin level of 6.7 g/dL and a critical thrombocytopenia with a platelet count of 4,000/mm�. White blood cell count is 0.1
with neutropenia. The past medical history indicates the myeloid disorder progressed to AML, and the patient admits to an end-stage condition. The patient is afebrile and infection is not suspected at this time. The patients orthostatic hypotension
was noted, previously managed with midodrine, which was recently discontinued.
INDEPENDENT REVIEW OF LABS AND INTERPRETATION OF TESTS
My independent review of the labs shows a hemoglobin level consistent with severe anemia at 6.7 g/dL, platelet count indicating severe thrombocytopenia at 4,000/mm�, and a white blood cell count with profound neutropenia at 0.1, consistent with the
patients known history of myelodysplastic syndrome and AML.
MANAGEMENT OF THE PATIENTS CARE WAS DISCUSSED WITH
Care was coordinated with the patients electrodynamicist and oncologist regarding ongoing management, including transfusion needs.
PLAN
The patient will receive a transfusion of leukocyte-reduced CMV-negative packed red blood cells and platelets. The plan includes admission for overnight monitoring and continuous reassessment of blood counts to determine if further transfusions are
necessary.
MEDICATION RECONCILIATION
The patient is no longer on midodrine for orthostatic hypotension.
MEDICAL DECISION MAKING
1. Number & Complexity of Problems: Chronic conditions affecting care include acute myeloid leukemia and myelodysplastic syndrome. Differential diagnoses considered include anemia secondary to chemotherapy and thrombocytopenia.
2. Data Reviewed: Category 1 includes labs such as hemoglobin, platelet count, and white blood cell count. Category 2 includes review of external notes such as a discharge summary from July 2024.
3. Risk: Consideration of admission was made due to high complexity and risk given the patients critical lab results, history of AML, and the need for transfusion.
PATHOLOGIES TO CONSIDER
- Sepsis (though currently afebrile, continued monitoring for any signs of infection is necessary due to neutropenia)
- Bleeding risk due to severe thrombocytopenia.
Past History
Past History
ED Past Medical History: Hypercholesterolemia and Other (MDS)
ED Past Surgical History: Other (Inguinal hernia repair)
Social History
Tobacco: Non-smoker
Alcohol: None
Phy Exam
Physical Exam
Physical Exam:
.
Course
Orders/Labs/Results
Orders:
Orders
09/03/24 10:53
Electrocardiogram (*1) Urgent
Reason for Study: Syncope
EKG- Treatment ONCE
09/03/24 10:59
Complete Blood Count/With Diff Urgent
Comprehensive Metabolic Panel Urgent
09/03/24 11:05
Type+Screen Urgent
BBK Wristband Number:
09/03/24 11:28
* Blood Bank Products Urgent
Blood Bank Products: RBC Leuko CMV Neg Irr
Quantity: 2
Transfuse Today: Yes
Reason: Anemia
09/03/24 11:29
* Blood Bank Products Urgent
Blood Bank Products: Platelet Leukoreduced Irr
Quantity: 1
Transfuse Today: Yes
Reason: Thrombocytopenia
Abnormal Lab Results
09/03/24
10:59
WBC 0.1 L* 10^3/uL
(4.8-10.8)
RBC 2.24 L 10^6/uL
(4.70-6.10)
Hgb 6.7 L* D g/dL
(13.0-18.0)
Hct 19.0 L* %
(39.0-52.0)
Plt Count 4 L* D 10^3/uL
(130-400)
Absolute Neuts (auto) 0.0 L* 10^3/uL
(1.4-6.5)
Absolute Lymphs (auto) 0.0 L 10^3/uL
(1.2-3.4)
Absolute Monos (auto) 0.0 L 10^3/uL
(0.1-0.6)
Neutrophils % 0.0 L %
(42.2-75.2)
Lymphocytes % 66.7 H %
(20.5-51.1)
Monocytes % 33.3 H %
(1.7-9.3)
09/03/24 10:59
Vital Signs
Initial and Last Documented VS:
Initial Vital Signs
Temp Pulse Resp BP Pulse Ox
98.6 F 105 18 86/51 96
09/03/24 10:46 09/03/24 10:46 09/03/24 10:46 09/03/24 10:46 09/03/24 10:46
Last Documented Vital Signs
Temp Pulse Resp BP Pulse Ox
98.6 F 105 18 86/51 96
09/03/24 10:46 09/03/24 10:46 09/03/24 10:46 09/03/24 10:46 09/03/24 11:48
*Pulse Oximetry
SaO2: 96
Oxygen Mode of Delivery: Room air
Patient hypoxic: no
*Solar Sales Manager Interpretation
Rate: normal
Interpretation: normal
Rhythm: sinus and PVC's
*Critical Care Note
Total Time (30-74mins, 75-104mins- exclusive of procedures): 35 minutes
ED Attending Note
-
Portions of this chart may have been created with voice recognition software.� Occasional wrong word or��sound alike� substitutions may have occurred due to the inherent limitations of voice recognition software.
Discharge Plan
Departure
Patient Disposition: Admit
Date of Disposition: 09/03/24
Time of Disposition: 11:47
Admit to: Telemetry
Presentation/result/management discussed w/ accepting MD/DO: Hospitalist
Discharge Problem:
Pancytopenia, Symptomatic anemia
Prescriptions:
No Action
ondansetron HCl 8 mg Tablet
8 mg PO Q6HPRN PRN (Reason: nausea)
docusate sodium [Colace] 100 mg Capsule
100 mg PO BID PRN (Reason: constipation)
loratadine [Claritin] 10 mg Tablet
10 mg PO DAILYPRN PRN (Reason: neulasta injection)
atorvastatin 80 mg tablet
40 mg PO HS
venetoclax 100 mg Tablet
400 mg PO DIRECTED
levofloxacin 500 mg tablet
500 mg PO DAILY
Theraflu ExpressMax Sv Cld-Flu [id number] mg/15 mL Liquid
15 ml PO DAILYPRN PRN (Reason: COLD AND COUGH)
ergocalciferol (vitamin D2) 1,250 mcg (50,000 unit) capsule
1,250 mcg PO WE
voriconazole 200 mg Tablet
200 mg PO Q12 Qty: 60 2RF
acyclovir 400 mg Tablet
400 mg PO BID Qty: 60 2RF
mirtazapine 15 mg Tablet
15 mg PO HS
polyethylene glycol 3350 17 gram Powder In Packet
17 g PO DAILYPRN PRN (Reason: constipation)
famotidine 20 mg Tablet
20 mg PO [id number] PRN (Reason: NAUSEA)
zolpidem 5 mg Tablet
5 mg PO HSPRN PRN (Reason: insomnia)
sodium chloride 0.65 % Aerosol,Myrtle
1 spray INTRANASAL BID
Visbiome 112.5 billion cell Capsule
1 cap PO DAILY Qty: 0
cyanocobalamin (vitamin B-12) 1,000 mcg Tablet
1,000 mcg PO DAILY 30 Days Qty: 30 0RF
allopurinol 300 mg Tablet
300 mg PO DAILY Qty: 0 0RF
Referrals:
Fide Langford MD [Family Provider, Family Practice]
Interventions
Interventions:
*Risk Screen - Suicide Last Done: 09/03/24 10:46
*General Assessment Last Done: 09/03/24 10:46
*Neglect/Abuse Screening Last Done: 09/03/24 10:46
ED- Cardiac Assessment Last Done: 09/03/24 11:28
ED- Neurological Assessment Last Done: 09/03/24 11:28
ED- Pulmonary Assessment Last Done: 09/03/24 11:28
Discharge Date and Time
Print Language: LUX[place]BOURG[place]
--- NOTE | 2024-09-03 12:19 | HPS.HSE ---
Family Physician
-
Family Physician: Fide Langford MD
Chief Complaint
-
generalized weakness
History of Present Illness
This is a 74-year-old male with past medical history of myelodysplastic syndrome, acute myeloid leukemia currently on treatment with venetoclax, completed Vidaza 08/21 who presents to ER complaining of generalized weakness and fatigue.�The
patient denies bleeding episodes, shortness of breath, black stools.� He reports his generalized weakness is chronic for him. He presented here with similar symptom last month, and was worked up for Opportunistic infections. �He denies headache,
numbness, confusion. He states he follows oncologist at [place] and [facility], with his most recent bone marrow biopsy 07/18.� Upon presentation to the ED, his blood pressure 86/51, pulse 105, temperature 98.6, respiratory rate 18, O2 sat 96% on room
air.� Laboratory showed WBC 0.1, RBC 2.24, hemoglobin 6.7, hematocrit 19.0, platelet count 4, absolute neutrophil 0.0, absolute lymphocyte 0.0, absolute monocyte 0.0. BMP unremarkable. � He was evaluated with an EKG which showed sinus rhythm with
premature supraventricular complexes and with occasional premature ventricular complexes.
Medical History
Past Medical History
Past Medical History: Reports Other (myelodysplastic syndrome, AML, pancytopenia, history of multiple transfusions, hypercholesterolemia, gout, )
Past Surgical History: Reports Other (inguinal hernia repair)
Social History
Tobacco: Non-smoker
Alcohol: None
Drug: None
Family History
Family History: Not pertinent
Allergies / Home Medications
Allergies reflects when Allergies were last updated in [email or web address].
Home Medications with original date entered in [email or web address]
Allergy/Medication List:
Allergies
Allergy/AdvReac Type Severity Reaction Status Date / Time
Penicillins Allergy Intermediate Hives Verified 08/31/24 09:56
()
lidocaine Allergy Itching Verified 08/31/24 09:56
Home Medications
Lactobac no.2-Bifidobac no.1-S. thermo 112.5 billion cell capsule (Visbiome) 1 cap PO DAILY Supplement ##0 12/31/23
famotidine 20 mg tablet 20 mg PO [id number] PRN NAUSEA 12/31/23
sodium chloride 0.65 % nasal spray aerosol 2 spray intranasal Q4HPRN PRN congestion 12/31/23
allopurinol 300 mg tablet 300 mg PO DAILY Gout #0 tabs 01/09/24
docusate sodium 100 mg capsule (Colace) 100 mg PO BID PRN constipation 02/16/24
loratadine 10 mg tablet (Claritin) 10 mg PO DAILY 02/16/24
venetoclax 100 mg tablet 400 mg PO DIRECTED Antineoplastic Agent 06/26/24
ergocalciferol (vitamin D2) 1,250 mcg (50,000 unit) capsule 1,250 mcg PO WE@0800 vitamin D deficiency 07/23/24
acyclovir 400 mg tablet 400 mg PO BID ANTIVIRAL #60 tabs 08/02/24
levofloxacin 500 mg tablet 500 mg PO DAILY prophylaxis 08/08/24
acetaminophen 500 mg tablet (Tylenol Extra Strength) 1,000 mg PO DAILY 09/03/24
atorvastatin 40 mg tablet 40 mg PO HS 09/03/24
cyanocobalamin (vitamin B-12) 1,000 mcg tablet 3,000 mcg PO DAILY supplement 09/03/24
voriconazole 200 mg tablet 200 mg PO Q12H 09/03/24
Review of Systems
-
History Source: Patient
A 12 point ROS was completed and negative except as noted: Yes
Constitutional: Denies Fever or Chills
Respiratory: Denies Cough
Cardiac: Denies Chest Pain or Diaphoresis
Physical Exam
Vital Signs
Vital Signs
Temp Pulse Resp BP Pulse Ox
98 F 86 18 92/59 97
09/03/24 12:09 09/03/24 12:09 09/03/24 12:09 09/03/24 12:09 09/03/24 12:09
Physical Exam
General: Well Developed, Well Nourished and No Apparent Distress
Respiratory: Clear; No Wheezes or Rales
Cardiac: S1/S2 and Regular Rhythm
GI: Soft, Non Tender, Non Distended and Normal Bowel Sounds
Musculoskeletal: No Clubbing, No Cyanosis and No Edema
Skin: Other (scattered areas of ecchymosis on skin)
Neuro: Awake, Alert, Oriented and AO x 3
Psych: Calm
Laboratory Results
-
09/03/24 10:59
Impression/Plan
-
Assessment/Plan
#Acute on Chronic Anemia secondary to Chemotherapy
#AML
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
#Hx of Multiple transfusions
-Completed Vidaza 08/21, currently on Venetoclax
-no signs of acute bleeding
-s/p Transfusion in the ED 2units PRBC, 1 unit platelets.
-Monitor CBC
-Consult Hematology and Oncology
-Neutropenic Precautions
-Consider G-CSF(Filgrastim) if prolonged neutropenia
-Was started on Voriconazole 200mg for opportunistic infection at the last hospitalization, as there were concerns for false negative Aspergillosis galactomannan assay and Fungitell
-Instructed by ID to continue Voriconazole for 2-3 months and/or until repeat CT chest improves
-Will touch base with ID
-Continue Voriconazole
-Continue prophylactic Acyclovir, Levofloxacin
#Generalized Weakness
-Likely multifactorial in the setting of chronic conditions vs Anemia
-No focal neurological deficits reported
-Monitor for changes in mental status
-PT/OT
-Fall precautions
#Hypotension
-Likely related to anemia vs volume depletion vs chemo effects.
-Hemodynamically stable, Afebrile, no signs of shock
-IV fluids
-Check Orthostatics
-AM cortisol especially with exposure to chemo
-Monitor vitals, pressor support if needed to keep MAP>65.
#Hyperlipidemia
-Continue Atorvastatin
#Gout
-Check Uric Acid
-Continue Allopurinol
#GERD
-Continue Famotidine
Code Status: Full code
DVT PPx- SCDs
[2024-09-03 12:55] LABS: ALT (SGPT) 29 U/L (0-50); AST (SGOT) 30 U/L (17-59); Albumin 1.9 g/dl (3.5-5.0); Alkaline Phosphatase 108 U/L (38-126); Blood Urea Nitrogen 26 mg/dl (9-20); Calcium 7.4 mg/dl (8.4-10.2); Carbon Dioxide 23 mmol/L (22-30); Chloride 103 mmol/L (98-107); Estimated Creatinine Clearance 84 ml/min; Glucose 155 mg/dl (70-99); Potassium 4.3 mmol/L (3.5-5.1); Sodium 131 mmol/L (135-145); Total Bilirubin 0.7 mg/dl (0.2-1.3); Total Protein 3.9 g/dl (6.3-8.2); eGFR > 60.00
--- NOTE | 2024-09-03 13:11 | PHANOTE ---
09/03/2024, pt. gets 150 mg of Vidaza 7 days in a row every 28 days with his last dose being on 08/21/2024, but there are no future doses ordered per OID.
--- NOTE | 2024-09-03 14:57 | CON.ONC ---
Impression
Impression
Myelodysplasia/acute myelogenous leukemia
Severe pancytopenia
Plan
Plan
Agree with plans for transfusion. I would consider giving him a third unit of packed cells to see if we can get him through until next week. At this point, he is not running any fever, so we could anticipate letting him go after the transfusions
are complete. Obviously, if he does become febrile, he would need to stay for IV antibiotics. He does have a telemedicine visit with his business center representative [place].
Patient History
History of Present Illness
Consult from Dr. Ring regarding pancytopenia
This 74-year-old man came to the emergency room due to severe fatigue and lightheadedness. He has known myelodysplasia that ultimately transformed into acute myelogenous leukemia. With further treatment, that has been put back into a more
differentiated disease, with only about 5% blasts. However, he is continued with severe pancytopenia and is transfused on a weekly basis with packed cells and platelets, recently he has received platelets twice a week. His platelet count does not
seem to rise very much, most likely due to alloimmunization. He denies any fevers at home, and is not having any fevers here. He is due for another treatment and/or bone marrow most likely in the next couple of weeks. He does have a visit with
his business center representative at [facility] the day after tomorrow.
Patient Medication
�Medication �Instructions �Recorded �Confirmed �Last Taken �Type
Lactobac no.2-Bifidobac no.1-S. 1 cap PO DAILY Supplement ##0 12/31/23 09/03/24 09/03/24 History
thermo 112.5 billion cell capsule
(Visbiome)
famotidine 20 mg tablet 20 mg PO [id number] PRN NAUSEA 12/31/23 09/03/24 09/02/24 History
sodium chloride 0.65 % nasal spray 2 spray intranasal Q4HPRN PRN 12/31/23 09/03/24 09/03/24 History
aerosol congestion
allopurinol 300 mg tablet 300 mg PO DAILY Gout #0 tabs 01/09/24 09/03/24 09/03/24 Rx
docusate sodium 100 mg capsule 100 mg PO BID PRN constipation 02/16/24 09/03/24 09/01/24 History
(Colace)
loratadine 10 mg tablet (Claritin) 10 mg PO DAILY 02/16/24 09/03/24 09/03/24 History
venetoclax 100 mg tablet 400 mg PO DIRECTED 06/26/24 09/03/24 08/30/24 History
Antineoplastic Agent
ergocalciferol (vitamin D2) 1,250 1,250 mcg PO WE@0800 vitamin D 07/23/24 09/03/24 08/29/24 History
mcg (50,000 unit) capsule deficiency
acyclovir 400 mg tablet 400 mg PO BID ANTIVIRAL #60 tabs 08/02/24 09/03/24 09/03/24 Rx
levofloxacin 500 mg tablet 500 mg PO DAILY prophylaxis 08/08/24 09/03/24 09/03/24 History
acetaminophen 500 mg tablet 1,000 mg PO DAILY 09/03/24 09/03/24 09/03/24 History
(Tylenol Extra Strength)
atorvastatin 40 mg tablet 40 mg PO HS 09/03/24 09/03/24 09/02/24 History
cyanocobalamin (vitamin B-12) 3,000 mcg PO DAILY supplement 09/03/24 09/03/24 09/03/24 History
1,000 mcg tablet
voriconazole 200 mg tablet 200 mg PO Q12H 09/03/24 09/03/24 09/03/24 History
Active Medications
Generic Name Dose Route Start Last Admin
Trade Name Freq PRN Reason Stop Dose Admin
Acetaminophen 1,000 mg 09/04/24 08:00
Acetaminophen 500 Mg Tablet PO 10/02/24 07:59
DAILY JAMAR
Allopurinol 300 mg 09/04/24 08:00
Allopurinol 300 Mg Tablet PO 10/02/24 07:59
DAILY JAMAR
Atorvastatin Calcium 40 mg 09/03/24 22:00
Atorvastatin (Lipitor) 40 Mg Tablet PO 10/01/24 21:59
HS JAMAR
Bisacodyl 10 mg 09/03/24 13:09
Bisacodyl 10 Mg Rectal Suppository RECTAL 10/01/24 13:08
[id number] PRN
constipation
Cyanocobalamin 3,000 mcg 09/04/24 08:00
Cyanocobalamin 1,000 Mcg Tablet PO 10/02/24 07:59
DAILY JAMAR
Famotidine 20 mg 09/03/24 13:39
Famotidine 20 Mg Tablet PO 10/01/24 13:38
[id number] PRN
NAUSEA
Sodium Chloride 1,000 mls @ 100 mls/hr 09/03/24 13:45
Nss IV
.Q10H JAMAR
Lactobacillus/Bifidobacterium 1 cap 09/04/24 08:00
Lactobac/Bifidobac (Visbiome) PO 10/02/24 07:59
DAILY JAMAR
Levofloxacin 500 mg 09/04/24 08:00
Levofloxacin 500 Mg Tablet PO
DAILY JAMAR
Loratadine 10 mg 09/04/24 08:00
Loratadine 10 Mg Tablet PO 10/02/24 07:59
DAILY JAMAR
Non-Formulary Medication 400 mg 09/03/24 20:00
Acyclovir PO 10/01/24 19:59
BID JAMAR
Non-Formulary Medication 400 mg 09/03/24 13:45
Venetoclax PO 10/01/24 13:44
DIRECTED JAMAR
Polyethylene Glycol 17 grams 09/03/24 13:09
Polyethylene Glycol Powder 17 Grams Packet PO 10/01/24 13:08
DAILYPRN PRN
constipation
Senna/Docusate Sodium 1 tablet 09/03/24 13:09
Docusate W/Senna (Balbina-Colace) Tablet PO 10/01/24 13:08
BIDPRN PRN
constipation
Sodium Chloride drops 09/03/24 13:39
Saline Mist For Peds NASAL 10/01/24 13:38
Q4HPRN PRN
congestion
Voriconazole 200 mg 09/03/24 14:00
Voriconazole 200 Mg Tablet PO 09/13/24 13:59
Q12H JAMAR
Review of Systems
-
All Other Systems: Reviewed and Negative
Physical Exam
-
Physical examination shows the patient to be in no acute distress. However, he appears somewhat frail and has suffered apparent weight loss.
HEENT exam is unremarkable.
There are no palpable nodes.
Chest is clear.
The heart is regular with no murmur or gallop.
The abdomen is soft and nontender with no organomegaly or masses.
Extremities are unremarkable.
Neurologic is grossly intact.
Labs
Lab Results
WBC 0.1 10^3/uL (4.8-10.8) L* 09/03/24 10:59
RBC 2.24 10^6/uL (4.70-6.10) L 09/03/24 10:59
Hgb Cancelled 09/03/24 20:00
Hct Cancelled 09/03/24 20:00
MCV 84.8 fL (80.0-94.0) 09/03/24 10:59
MCH 29.9 pg (27.0-31.0) 09/03/24 10:59
MCHC 35.3 g/dL (33.0-37.0) 09/03/24 10:59
RDW 12.9 % (11.5-14.5) 09/03/24 10:59
Plt Count 4 10^3/uL (130-400) L* D 09/03/24 10:59
MPV 9.6 fL (7.4-10.4) 09/03/24 10:59
Abs Immat Gran (auto) 0.0 10^3/uL (0-0.05) 09/03/24 10:59
Absolute Neuts (auto) 0.0 10^3/uL (1.4-6.5) L* 09/03/24 10:59
Absolute Lymphs (auto) 0.0 10^3/uL (1.2-3.4) L 09/03/24 10:59
Absolute Monos (auto) 0.0 10^3/uL (0.1-0.6) L 09/03/24 10:59
Absolute Eos (auto) 0.0 10^3/uL (0-0.7) 09/03/24 10:59
Absolute Basos (auto) 0.0 10^3/uL (0-0.2) 09/03/24 10:59
Immature Gran % 0.0 % (0-0.5) 09/03/24 10:59
Neutrophils % 0.0 % (42.2-75.2) L 09/03/24 10:59
Lymphocytes % 66.7 % (20.5-51.1) H 09/03/24 10:59
Monocytes % 33.3 % (1.7-9.3) H 09/03/24 10:59
Eosinophils % 0.0 % (0-6) 09/03/24 10:59
Basophils % 0.0 % (0-2) 09/03/24 10:59
Creatinine 0.8 mg/dL (0.7-1.3) 09/03/24 10:59
Vital Signs
Vital Signs
Temp Pulse Resp BP Pulse Ox
98.2 F 84 25 101/68 96
09/03/24 13:13 09/03/24 14:30 09/03/24 14:30 09/03/24 14:00 09/03/24 14:30
--- NOTE | 2024-09-03 17:16 | PTCARENOTE ---
Received patient on admission from ED via stretcher with 1st unit PRBCs infusing on gravity tubing. [place]nerdell sheet in use d/t irradiated unit. Transferred to bed x3 assist. Unstageable wound noted on L inner buttocks; st 2 noted on R inner buttock.
Patient states he has been putting cream on that area at home. WOC consulted entered as per protocol. Dr Alicea up to see patient and made aware of wounds. 2nd unit PRBCs infusing at present time. NSR on monitor. BP 122/71, HR 76, POx 97% on
RA. See worklist for full assessment and vital signs. See pink transfusion sheet for transfusion documentation and vital signs.
--- NOTE | 2024-09-03 17:24 | PTCARENOTE ---
Patient reported >20lb weight loss; nutrition consult entered per protocol. He also report recent fall; nursing level PT consult entered.
--- NOTE | 2024-09-03 17:26 | PTCARENOTE ---
Patient brought in own midodrine; bottle given to pharmacist Eri. Paperwork filled out, signed by patient/nurse/pharmacist and placed on chart.
[2024-09-03 18:27] LABS: LDH 237 U/L (120-246); Uric Acid 2.7 mg/dl (3.5-8.5)
[2024-09-03] MEDS: LIPITOR 40 MG PO (20:10)
[2024-09-03] MEDS: VFEND 200 MG PO (20:10)
[2024-09-03] MEDS: ZOVIRAX 400 MG PO (20:12)
[2024-09-03] MEDS: NSS 1000 IV (20:54)
--- NOTE | 2024-09-03 21:08 | PTCARENOTE ---
2nd unit of PRBCs ended a short time ago, patient tolerated well. NS running through right forearm iv site as ordered at this time. Patient aaox3 since start of shift, denies pain. Lung sounds coarse throughout, pox 94% on ra. Call woods within
reach, will continue to monitor.
[2024-09-03 23:01] LABS: % Lymphocytes 71.4 % (20.5-51.1); % Monocytes 14.3 % (1.7-9.3); % Neutrophils 14.3 % (42.2-75.2); Absolute Lymphocytes 0.1 10^3/uL (1.2-3.4); Hematocrit 25.8 % (39.0-52.0); Hemoglobin 9.2 g/dL (13.0-18.0); Mean Corp Hgb Conc. 35.7 g/dL (33.0-37.0); Mean Corpuscular Hgb 28.9 pg (27.0-31.0); Mean Corpuscular Volume 81.1 fL (80.0-94.0); Mean Platelet Volume 10.6 fL (7.4-10.4); Nucleated Red Blood Cells % 0 % (-); Platelet Count 10 10^3/uL (130-400); Red Blood Cell Count 3.18 10^6/uL (4.70-6.10); Red Cell Dist. Width 14.8 % (11.5-14.5); White Blood Cell Count 0.1 10^3/uL (4.8-10.8)
[2024-09-04] VITALS (20 sets, daily range): BP systolic 81–148; BP diastolic 52–87; PULSE 84–124; O2SAT 95; BMI 21.1
[2024-09-04 04:54] LABS: Fibrinogen 315 MG/DL (199-459); INR 1.59; PT 19.2 Sec (11.4-14.6)
[2024-09-04 04:55] LABS: APTT 55.6 Sec (23.4-35.0)
[2024-09-04 05:07] LABS: ALT (SGPT) 43 U/L (0-50); AST (SGOT) 54 U/L (17-59); Alkaline Phosphatase 141 U/L (38-126); Blood Urea Nitrogen 26 mg/dl (9-20); Calcium 7.4 mg/dl (8.4-10.2); Carbon Dioxide 25 mmol/L (22-30); Chloride 105 mmol/L (98-107); Estimated Creatinine Clearance 82 ml/min; Glucose 114 mg/dl (70-99); Magnesium 1.6 mg/dl (1.6-2.3); Potassium 4.4 mmol/L (3.5-5.1); Sodium 133 mmol/L (135-145); Total Bilirubin 0.9 mg/dl (0.2-1.3); Total Protein 4.2 g/dl (6.3-8.2); eGFR > 60.00
[2024-09-04 05:10] LABS: Absolute Lymphocytes 0.1 10^3/uL (1.2-3.4); Hematocrit 24.1 % (39.0-52.0); Hemoglobin 8.6 g/dL (13.0-18.0); Mean Corp Hgb Conc. 35.7 g/dL (33.0-37.0); Mean Corpuscular Hgb 28.8 pg (27.0-31.0); Mean Corpuscular Volume 80.6 fL (80.0-94.0); Nucleated Red Blood Cells % 0 % (-); Platelet Count 9 10^3/uL (130-400); Red Blood Cell Count 2.99 10^6/uL (4.70-6.10); Red Cell Dist. Width 15.4 % (11.5-14.5); White Blood Cell Count 0.1 10^3/uL (4.8-10.8)
[2024-09-04 05:37] LABS: Cortisol, Random 18.8 ug/dl
[2024-09-04] MEDS: NSS 1000 IV ×2 (05:47→14:18)
--- NOTE | 2024-09-04 07:19 | W.PN.HOSP.TC ---
Today's Communication/Plan
-
;/
Assessment / Plan
Assessment / Plan
Assessment/Plan
#Acute on Chronic Anemia secondary to Below
#AML
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
#Hx of Multiple transfusions
-Completed Vidaza 08/21, currently on Venetoclax.
-no signs of acute bleeding
-s/p Transfused total 2units PRBC, 1 unit platelets on 09/03
-Transfuse for Hgb <7, platelets <10
-Transfuse 1 Unit Platelet today.
-Monitor CBC
-Heme/Onc consulted, appreciate input.
-Neutropenic Precautions
-Consider G-CSF(Filgrastim) if prolonged neutropenia
#Fungal Pneumonia
-Was started on Voriconazole 200mg for opportunistic infection at the last hospitalization, as there were concerns for false negative Aspergillosis galactomannan assay and Fungitell
-Instructed by ID to continue Voriconazole for 2-3 months and/or until repeat CT chest improves
-Continue Voriconazole, F/U with ID outpatient as scheduled.
-Continue Voriconazole
-Continue prophylactic Acyclovir, Levofloxacin
#Generalized Weakness
-Likely multifactorial in the setting of chronic conditions vs Anemia
-No focal neurological deficits reported
-Monitor for changes in mental status
-PT/OT
-Fall precautions
#Chronic Orthostatic Hypotension
#Hypotension on presentation
-Likely related to anemia vs volume depletion vs chemo effects.
-Hemodynamically stable, Afebrile, no signs of shock
-s/p IV fluids with Improvement to BP
-Check Orthostatics
-AM Cortisol- 18.
-Monitor vitals, pressor support if needed to keep MAP>65.
-Home Midodrine PRN for SBP<110
#Hyperlipidemia
-Continue Atorvastatin
#Gout
-Uric Acid 2.7
-Continue Allopurinol
#GERD
-Continue Famotidine
Code Status: Full code
DVT PPx- SCDs
Anticipated Discharge: 24 - 48 hours
Subjective/Interval History
-
Patient seen and examined at bedside. Denies acute complaint. He denies chest pain, sob, palpitation, syncope.
Objective Data
-
Labs:
Laboratory Results
09/03/24 09/03/24 09/03/24
14:30 16:26 22:46
WBC Cancelled 0.1 L*
Hgb Cancelled 9.2 L D
Hct Cancelled 25.8 L
Plt Count Cancelled 10 L* D
PT Cancelled
INR Cancelled
APTT Cancelled
Sodium
Potassium
Chloride
Carbon Dioxide
BUN
Creatinine
Glucose
Calcium
Total Bilirubin
AST
ALT
Alkaline Phosphatase
09/04/24
03:50
WBC 0.1 L*
Hgb 8.6 L
Hct 24.1 L
Plt Count 9 L*
PT 19.2 H
INR 1.59
APTT 55.6 H
Sodium 133 L
Potassium 4.4
Chloride 105
Carbon Dioxide 25
BUN 26 H
Creatinine 0.8
Glucose 114 H
Calcium 7.4 L
Total Bilirubin 0.9
AST 54
ALT 43
Alkaline Phosphatase 141 H
Vital Signs:
Vital Signs
Temp Pulse Resp BP Pulse Ox
98.5 F 105 27 148/87 94
09/04/24 03:51 09/04/24 04:00 09/04/24 04:00 09/04/24 04:00 09/04/24 04:00
I&O
09/03/24 09/04/2425
06:59 06:59 06:59
Intake Total 490 / 490
Output Total 700 / 700
Balance -210 / -210
Review of Systems
-
All other systems: Reviewed and negative (except as documented)
Physical Exam
-
General: Well Developed and No Apparent Distress
HEENT: Normocephalic
Respiratory: Clear to Auscultation
Cardiac: Regular Rhythm and S1/S2
GI: Soft, Nontender, Nondistended and Normal Bowel Sounds
Musculoskeletal: No Clubbing, No Cyanosis and No Edema
Skin: Other (scattered areas of ecchymosis on skin)
Neuro: Nonfocal/Grossly Intact
Psych: Calm
[2024-09-04] MEDS: ZOVIRAX 400 MG PO (08:17)
[2024-09-04] MEDS: VISBIOME 1 CAP PO (08:17)
[2024-09-04] MEDS: TYLENOL 1000 MG PO (08:18)
[2024-09-04] MEDS: CLARITIN 10 MG PO (08:18)
[2024-09-04] MEDS: LEVAQUIN 500 MG PO (08:18)
[2024-09-04] MEDS: VITAMIN B-12 3000 MCG PO (08:18)
[2024-09-04] MEDS: ZYLOPRIM 300 MG PO (08:18)
[2024-09-04] MEDS: VFEND 200 MG PO (10:27)
--- NOTE | 2024-09-04 10:48 | PTCARENOTE ---
Assumed care of patient at beginning of this shift from previous RN. Patient ordered 1 unit platelets this morning; blood bank contacted and stated they will notify this RN when platelets arrive. Patient also to see WOC today. PT/OT worked with
patient; currently OOB to chair. See worklist for full assessment and vital signs.
--- NOTE | 2024-09-04 12:07 | PTCARENOTE ---
Patient OOB to commode for BM. BP dropped to 81/52 when standing. He recovered to 96/74 then 109/70. TT sent to Dr Corey and Dr Alicea to make them aware as patient informed this RN on admission that he had been instructed to stop midodrine
(prior to admission) d/t elevated BPs. PRN order for midodrine to be updated for SBP <[address] Corey.
--- NOTE | 2024-09-04 12:28 | CM ---
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 Plan platelets today. Room air. Receiving PO Abx, voriconazole, IVF. Wound care consult ordered. PT/OT recommend HH.
Met with patient who resides with his in a 2 story house with 1 outside step and first floor bedroom/bath.
The patient was independent in ADLs and ambulation until yesterday, when he says he couldn't take more than 2 steps, was weak and dizzy.
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 The patient has a son Jose Maria who resides nearby.
DME - rollator, BP cuff, w/c
Prior recent [facility]
No prior SNF
Prior [facility]
PCP - Fide Langford
Pharmacy - [facility]
Offered [facility] for nurse, PT & OT and patient only agreed to nurse, saying he can walk by himself at home. He agrees to having [facility] again.
Patient says he feels ready to go home later today, and a neighbor will transport him home.
Case discussed with Dr Byrne and Fabiana, VN Liaison.
Plan home today with VN.
--- NOTE | 2024-09-04 12:31 | W.PN.ONC ---
Today's Communication / Plan
-
He's waiting on platelet transfusion today
Okay for d/c home afterward
He'll continue labs qM/Th and transfusions qTu/F
He has f/u with Dr. Carson at [place] next week. If no further treatment options, he's likely to opt for hospice, which he's already looked into
I'll await outcome of next weeks' visit, and consider f/u with me accordingly
Impression
Impression
Myelodysplasia/acute myelogenous leukemia
Severe pancytopenia
Plan
Plan
He's waiting on platelet transfusion today
Okay for d/c home afterward
He'll continue labs qM/Th and transfusions qTu/F
He has f/u with Dr. Carson at [place] next week. If no further treatment options, he's likely to opt for hospice, which he's already looked into
I'll await outcome of next weeks' visit, and consider f/u with me accordingly
Subjective/Objective
Subjective/Objective
no focal complaints
Vital Signs:
Vital Signs
Temp Pulse Resp BP Pulse Ox
97.3 F 98 26 109/70 96
09/04/24 12:14 09/04/24 12:00 09/04/24 12:00 09/04/24 12:00 09/04/24 12:00
Lab Results:
Laboratory Data
WBC 0.1 10^3/uL (4.8-10.8) L* 09/04/24 03:50
Hgb 8.6 g/dL (13.0-18.0) L 09/04/24 03:50
Plt Count 9 10^3/uL (130-400) L* 09/04/24 03:50
PT 19.2 Sec (11.4-14.6) H 09/04/24 03:50
INR 1.59 06/24/25 03:50
APTT 55.6 Sec (23.4-35.0) H 09/04/24 03:50
eGFR > 60.00 09/04/24 03:50
--- NOTE | 2024-09-04 12:37 | PTCARENOTE ---
Patient's cardiac monitor technician alarmed tachycardia, irregular this morning. EKG done to confirm rhythm and pictures of both telemetry strips and EKG printout sent to Dr Corey and Dr Alicea. Dr Corey up to see patient and visualize EKG and
telemetry strips while on unit.
--- NOTE | 2024-09-04 13:25 | W.DCSUMMARY ---
Documented by User: Kiara Alicea MD, Resident 09/04/24 16:47
Discharge Summary
Discharge Data
Date of Admission: 09/03/24
Date of Discharge: 09/04/24
-
Pending Results: No
Hospital Course
Brief Hospital Course: This is a 74-year-old male with Myelodysplastic syndrome transformation to AML, dyslipidemia, H/O orthostatic hypotension who presented to ED 09/03 complaining of weakness and inability to ambulate.� Patient is Currently
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 Pertinent to his history, he Was recently hospitalized in July of this year with neutropenic fever, found to have fungal pneumonia
with hospital course complicated by hallucinations in the context of antifungal therapy.�At that admission, he was started on Voriconazole, and advised to continue treatment for 2-3months, with follow up with Infectious Disease afterwards. In
addition, patient reports Developed worsening weakness over the days following his last chemotherapy infusion.� Upon arrival to the ED was hypotensive at 86/51 mmHg, tachycardic with HR 105 though otherwise afebrile and on room air comfortably.�
Labs with WBC 0.1 with ANC 0, hemoglobin 6.7, platelet count 4.� ECG with NSR and some occasional PVCs. In the ED was ordered 2 unit of leukocyte reduced CMV negative packed red blood cells and 1 unit of platelets.� He Denied melena, hematochezia,
epistaxis, other bleeding sources.� Denied fevers or chills.� States he does have cough that is improving since being discharged for fungal pneumonia. After transfusion, Blood pressure improved spontaneously, as did heart rate. He was started on
Maintenance fluid with NS. Heme/Onc was consulted to evaluate patient. It was noted that patient follows up with with Dr. Carsno at [place], with an appointment scheduled for next week. He also gets labs every M/Th and transfusions every /
Throughout the course of his hospital stay, No bleeding occurred. Hemoglobin was up to 8.7, platelet count 9. ANC remains 0.0. No fevers reported. He received another 1unit of platelet today. Patient reported feeling better. He will be
discharged today to follow up with his outpatient oncologist.
Discharge Plan
-
Patient Disposition: Home with Home Care
Discharge Diagnosis/Procedures: Pancytopenia Secondary to AML progressed from Myelodysplastic syndrome and chemotherapy
Myelodysplasia and acute myelogenous leukemia
Condition: Fair
Diet: As tolerated
Activity: With assistance
Other Services: VN
Activity Restrictions/Additional Instructions:
Wound Care Instructions
buttocks: clean with soap and water, silicone foam change q 3 days and prn soilage
air cushion when sitting, can take upon discharge
increase protein in diet
Frequent turning and repositioning when sitting or in bed
Follow up at wound care center call for an appointment.
Referrals:
Fide Langford MD [Family Provider, Family Practice] - in two to four weeks
Additional Discharge Medication Instructions: Continue Voriconazole until you see ID specialist(Dr Marte) for follow up next week.
Prescriptions:
Continued
docusate sodium [Colace] 100 mg Capsule
100 mg PO BID PRN (Reason: constipation)
loratadine [Claritin] 10 mg Tablet
10 mg PO DAILY
venetoclax 100 mg Tablet
400 mg PO DIRECTED
Patient Comments:
09/03/2024, per pt., he takes this med. with his 7-day Vidaza infusion and for 7 days after it every 28 days; however, there is no future doses ordered of Vidaza per OID. Last Vidaza dose 08/21/24
levofloxacin 500 mg tablet
500 mg PO DAILY
Patient Comments:
09/03/2024, filled on 08/02/2024 for 30-day supply.
ergocalciferol (vitamin D2) 1,250 mcg (50,000 unit) capsule
1,250 mcg PO WE@0800
acyclovir 400 mg Tablet
400 mg PO BID Qty: 60 2RF
atorvastatin 40 mg Tablet
40 mg PO HS
acetaminophen [Tylenol Extra Strength] 500 mg Tablet
1,000 mg PO DAILY
cyanocobalamin (vitamin B-12) 1,000 mcg tablet
3,000 mcg PO DAILY
voriconazole 200 mg tablet
200 mg PO Q12H
Patient Comments:
09/03/2024, per pt., last dose is tonight.
midodrine 5 mg Tablet
5 mg PO TID PRN (Reason: SBP<110) Qty: 0 0RF
famotidine 20 mg Tablet
20 mg PO [id number] PRN (Reason: NAUSEA)
sodium chloride 0.65 % Aerosol,[place]
2 spray INTRANASAL Q4HPRN PRN (Reason: congestion)
Visbiome 112.5 billion cell Capsule
1 cap PO DAILY Qty: 0
allopurinol 300 mg Tablet
300 mg PO DAILY Qty: 0 0RF
Discharge Orders:
Discharge Patient (As Directed); Ordered 09/04/24
Ordered By: Kiara Alicea
Discharge Date and Time
Discharge Date/Time: 09/04/24 18:09
Print Language: RWANDAN

Documented by User: Lucius Corey DO 09/05/24 09:29
Discharge Summary
Discharge Data
Date of Admission: 09/03/24
Date of Discharge: 09/04/24
Total time spent discharging patient (in min): 31
Discharge Plan
-
Patient Disposition: Home with Home Care
Discharge Diagnosis/Procedures: Pancytopenia Secondary to AML progressed from Myelodysplastic syndrome and chemotherapy
Myelodysplasia and acute myelogenous leukemia
Condition: Fair
Diet: As tolerated
Activity: With assistance
Other Services: VN
Activity Restrictions/Additional Instructions:
Wound Care Instructions
buttocks: clean with soap and water, silicone foam change q 3 days and prn soilage
air cushion when sitting, can take upon discharge
increase protein in diet
Frequent turning and repositioning when sitting or in bed
Follow up at wound care center call for an appointment.
Referrals:
Fide Langford MD [Family Provider, Family Practice] - in two to four weeks
Additional Discharge Medication Instructions: Continue Voriconazole until you see ID specialist(Dr Marte) for follow up next week.
Prescriptions:
Continued
docusate sodium [Colace] 100 mg Capsule
100 mg PO BID PRN (Reason: constipation)
loratadine [Claritin] 10 mg Tablet
10 mg PO DAILY
venetoclax 100 mg Tablet
400 mg PO DIRECTED
Patient Comments:
09/03/2024, per pt., he takes this med. with his 7-day Vidaza infusion and for 7 days after it every 28 days; however, there is no future doses ordered of Vidaza per OID. Last Vidaza dose 08/21/24
levofloxacin 500 mg tablet
500 mg PO DAILY
Patient Comments:
09/03/2024, filled on 08/02/2024 for 30-day supply.
ergocalciferol (vitamin D2) 1,250 mcg (50,000 unit) capsule
1,250 mcg PO WE@0800
acyclovir 400 mg Tablet
400 mg PO BID Qty: 60 2RF
atorvastatin 40 mg Tablet
40 mg PO HS
acetaminophen [Tylenol Extra Strength] 500 mg Tablet
1,000 mg PO DAILY
cyanocobalamin (vitamin B-12) 1,000 mcg tablet
3,000 mcg PO DAILY
voriconazole 200 mg tablet
200 mg PO Q12H
Patient Comments:
09/03/2024, per pt., last dose is tonight.
midodrine 5 mg Tablet
5 mg PO TID PRN (Reason: SBP<110) Qty: 0 0RF
famotidine 20 mg Tablet
20 mg PO [id number] PRN (Reason: NAUSEA)
sodium chloride 0.65 % Aerosol,[place]
2 spray INTRANASAL Q4HPRN PRN (Reason: congestion)
Visbiome 112.5 billion cell Capsule
1 cap PO DAILY Qty: 0
allopurinol 300 mg Tablet
300 mg PO DAILY Qty: 0 0RF
Discharge Orders:
Discharge Patient (As Directed); Ordered 09/04/24
Ordered By: Kiara Alicea
Discharge Date and Time
Discharge Date/Time: 09/04/24 18:09
Print Language: RWANDAN
[2024-09-04 13:56] LABS: Hepatitis C Antibody Negative (Negative)
--- NOTE | 2024-09-04 14:30 | VNURNOTE ---
Home Health Liaison met with patient at bedside to discuss [facility] nurse/therapy, visits, schedule and homebound status. Patient is agreeable and understands that visits at home will be 2-3 x per week to assess and teach medical management. Patient
recently was DC'ed from VN services.
Patient is aware that [facility] will contact them for start of care in 1-2 days after discharge from .
[facility] referral completed in Care Port.
--- NOTE | 2024-09-04 14:33 | WOUNDNOTE ---
[facility] RN note: Patient admitted with pancytopenia, anemia.
See H&P for complete history.
PMH: acute myeloid leukemia.
Wound Location and type/assessment: Patient admitted with: small unstageable PI's on b/l buttocks, dry intact eschar, no drainage or odor. R dorsal foot with faint tiny patch of red skin, suspect from rubbing of shoes or Rajeev stockings, which are in
use on both legs, heel intact. Patient states he wears Rajeev's at home.
Appetite: Fair, drinks ensure at home.
Pressure redistribution devices in place: air mattress, encouraged frequent turning, air cushion for chair, turns self.
Plan: Sacral silicone foam applied to buttocks, gave extra supplies for patient to take upon discharge today. Teaching done with patient regarding wound care, nutrition and offloading, states he understands.
Will confirm orders with hospitalist and updated nurse.
Updated care plan and will follow as needed.
Note to case management of equipment requested for discharge: None, VN
Recommend follow up at wound care center upon discharge.
--- NOTE | 2024-09-04 15:06 | WOUNDNOTE ---
RIGHT ANTERIOR FOOT
--- NOTE | 2024-09-04 15:35 | PTCARENOTE ---
Platelets arrived per blood bank; card sent. Per Dr Corey, patient may be discharged after platelet infusion complete; no need for repeat blood draw. Patient stated his neighbor will be picking him up.
== END 2024-09-04 18:09 | disposition home health service (06) | DRG 808 ==
LOC: IMU 14:46
PROVIDERS: Nurse Practitioner Family; Student in an Organized Health Care Education/Training Program; ADMITTING PHYSICIAN Internal Medicine; CONSULT PHYSICIAN Internal Medicine Hematology & Oncology; EMERGENCY PHYSICIAN Emergency Medicine; FAMILY PHYSICIAN Family Medicine
PROC: 30233N1 Transfusion of Nonautologous Red Blood Cells into Peripheral Vein, Percutaneous Approach (ICD-10-PCS; 2024-09-03)
PROC: 30233R1 Transfusion of Nonautologous Platelets into Peripheral Vein, Percutaneous Approach (ICD-10-PCS; 2024-09-03)
DX: D61.810 Antineoplastic chemotherapy induced pancytopenia (principal); J16.8 Pneumonia due to other specified infectious organisms; C92.00 Acute myeloblastic leukemia, not having achieved remission; B49 Unspecified mycosis; D84.9 Immunodeficiency, unspecified; R65.10 Systemic inflammatory response syndrome (SIRS) of non-infectious origin without acute organ dysfunction; T45.1X5A Adverse effect of antineoplastic and immunosuppressive drugs, initial encounter; I95.1 Orthostatic hypotension; E78.00 Pure hypercholesterolemia, unspecified; M10.9 Gout, unspecified; K21.9 Gastro-esophageal reflux disease without esophagitis
CPT/HCPCS: 36430; 80053; 82533; 83615; 83735; 84550; 85025; 85384; 85610; 85730; 86803; 86850; 86900; 86901; 86920; 93005; 97163; 97167; 97530; 99291; P9058; P9073

== ENCOUNTER 2024-09-05 03:42 | Inpatient (IN) | payer MEDICARE, BC, SELFPAY ==
[2024-09-05] VITALS (11 sets, daily range): BP systolic 103–160; BP diastolic 54–143; BMI 22.7; BMI 22.3
--- NOTE | 2024-09-05 01:20 | EDRN ---
Patient came in incontinent of urine and stool, patient was cleaned up and pulled up in bed.
[2024-09-05 01:40] LABS: % Lymphocytes 62.5 % (20.5-51.1); % Neutrophils 12.5 % (42.2-75.2); Absolute Lymphocytes 0.1 10^3/uL (1.2-3.4); Hematocrit 25.2 % (39.0-52.0); Mean Corp Hgb Conc. 35.7 g/dL (33.0-37.0); Mean Corpuscular Hgb 28.7 pg (27.0-31.0); Mean Corpuscular Volume 80.3 fL (80.0-94.0); Mean Platelet Volume 9.9 fL (7.4-10.4); Nucleated Red Blood Cells % 0 % (-); Platelet Count 20 10^3/uL (130-400); Red Blood Cell Count 3.14 10^6/uL (4.70-6.10); Red Cell Dist. Width 14.8 % (11.5-14.5); White Blood Cell Count 0.1 10^3/uL (4.8-10.8)
[2024-09-05] MEDS: TYLENOL 650 MG PO (01:41)
[2024-09-05 01:55] LABS: ALT (SGPT) 38 U/L (0-50); AST (SGOT) 37 U/L (17-59); Albumin 2.2 g/dl (3.5-5.0); Alkaline Phosphatase 145 U/L (38-126); Blood Urea Nitrogen 27 mg/dl (9-20); Calcium 7.5 mg/dl (8.4-10.2); Carbon Dioxide 24 mmol/L (22-30); Chloride 104 mmol/L (98-107); Estimated Creatinine Clearance 98 ml/min; Glucose 119 mg/dl (70-99); Potassium 4.1 mmol/L (3.5-5.1); Sodium 133 mmol/L (135-145); Total Protein 4.4 g/dl (6.3-8.2); eGFR > 60.00
--- NOTE | 2024-09-05 02:06 | ED.GENMED ---
History of Present Illness
General
Chief Complaint: Heart Rate Problem
Source: patient
Exam Limitations: none
Time Seen by Provider: 09/05/24 01:57
History of Present Illness
History of Present Illness:
See MDM
Past History
Past History
ED Past Medical History: Hypercholesterolemia and Other (MDS)
ED Past Surgical History: Other (Inguinal hernia repair)
Social History
Tobacco: Non-smoker
Alcohol: None
Phy Exam
Physical Exam
Physical Exam:
See MDM
Sepsis
Sepsis Screening
Sepsis Assessment: Sepsis
Sepsis Screen
Sepsis Screen: Sepsis
Date: 09/05/24
Time: 02:11
Course
Orders/Labs/Results
Orders:
Orders
09/05/24 01:16
EKG [Electrocardiogram (*1)] Urgent
Reason for Study: Atrial Fibrillation
EKG- Treatment ONCE
09/05/24 01:27
Complete Blood Count/With Diff Urgent
Comprehensive Metabolic Panel Urgent
09/05/24 01:38
Acetaminophen [Tylenol] 650 mg .ROUTE .STK-MED ONE
09/05/24 01:39
Cardiac Monitoring- Treatment ONCE
IV Insert/Care/Rem.- Treatment PRN
09/05/24 01:40
Acetaminophen [Tylenol] 650 mg PO NOW STA
09/05/24 01:45
Blood Culture Q20M
NORMAN Source: Blood/Venous
Specimen Description:
Comment: Urgent from separate sites. If patient screens positive for possible sepsis
09/05/24 01:49
Lactic Acid Q4H
Comment: ON ICE, CANCEL 2ND ORDER IF FIRST LACTIC ACID LEVEL <2
09/05/24 02:05
Blood Culture Q20M
[facility] Source: Blood/Venous
Specimen Description:
Comment: Urgent from separate sites. If patient screens positive for possible sepsis
Cefepime HCl [Maxipime] 1,000 mg IV NOW STA
CR Chest Portable - 1 View Urgent
Comment:
Reason For Exam: neutropenic fever
Reason Study Needs to be Portable: Patient Unstable
09/05/24 02:06
Urinalysis Reflex To Culture Urgent
09/05/24 05:45
Lactic Acid Q4H
Comment: ON ICE, CANCEL 2ND ORDER IF FIRST LACTIC ACID LEVEL <2
Abnormal Lab Results
09/05/24
01:27
WBC 0.1 L* 10^3/uL
(4.8-10.8)
RBC 3.14 L 10^6/uL
(4.70-6.10)
Hgb 9.0 L g/dL
(13.0-18.0)
Hct 25.2 L %
(39.0-52.0)
RDW 14.8 H %
(11.5-14.5)
Plt Count 20 L* D 10^3/uL
(130-400)
Absolute Neuts (auto) 0.0 L* 10^3/uL
(1.4-6.5)
Absolute Lymphs (auto) 0.1 L 10^3/uL
(1.2-3.4)
Absolute Monos (auto) 0.0 L 10^3/uL
(0.1-0.6)
Neutrophils % 12.5 L %
(42.2-75.2)
Lymphocytes % 62.5 H %
(20.5-51.1)
Monocytes % 25.0 H %
(1.7-9.3)
Sodium 133 L mmol/L
(135-145)
BUN 27 H mg/dl
(9-20)
Glucose 119 H mg/dl
(70-99)
Calcium 7.5 L mg/dl
(8.4-10.2)
Alkaline Phosphatase 145 H U/L
(38-126)
Total Protein 4.4 L g/dl
(6.3-8.2)
Albumin 2.2 L g/dl
(3.5-5.0)
09/05/24 01:27
09/05/24 01:27
Vital Signs
Initial and Last Documented VS:
Initial Vital Signs
Temp Pulse Resp BP Pulse Ox
99.6 F 120 26 153/137 99
09/05/24 01:20 09/05/24 01:20 09/05/24 01:20 09/05/24 01:20 09/05/24 01:20
Last Documented Vital Signs
Temp Pulse Resp BP Pulse Ox
101.7 F H 120 26 153/137 99
09/05/24 01:37 09/05/24 01:20 09/05/24 01:20 09/05/24 01:20 09/05/24 01:20
MDM/Problems Addressed
Differential Diagnosis Includes:
HPI and MDM Narrative:
74-year-old male presenting for evaluation of fatigue. 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 He was just seen in the emergency department and admitted. During his admission, he received platelets. He
was discharged yesterday. However, patient now febrile. Will treat as neutropenic fever since absolute neutrophil count is 0. Will give monotherapy of cefepime. Prior records indicate that history of neutropenic fever related to fungal
pneumonia. He is already taking preventative antifungals at home
Physical exam
General: Weak and fatigued
HEENT: protecting airway
Neck: appears supple
CV: No evidence of cyanosis. Tachycardia
Resp: No accessory muscle use. Lungs clear
Abd: Non-distended. Soft and nontender
Extremities: No deformities
Neuro: alert
Psych: Normal affect
Skin: Intact
Problems Addressed including Acute and Chronic Conditions affecting care:
1. Neutropenic fever
Acuity: acute
Prognosis: stable
Details: Will give cefepime. Will obtain chest x-ray and urinalysis
Differential Diagnosis (but not limited to): Neutropenic fever, pneumonia
Testing considered: CT abdomen/pelvis but he has no significant tenderness on exam
Drug therapy (if applicable): OTC meds, please see d/c instruction regarding Rx drugs
Amount and/or Complexity of Data Reviewed
Clinical info obtained from: Patient
External data reviewed: History of neutropenic fever in the past that was related to follow-up
Labs I independently reviewed (but not limited to): Absolute neutrophil count of 0
Radiology: N/A
Pulse Ox: not hypoxic
EKG independently reviewed: N/A
Plant Senior Manager: Tachycardia
Critical Care: N/A
Risk of Complication:
Social Determinants of health: Good social support
Discussed with other providers: Hospitalist
Escalation of Care includes Admit/Obs: Given neutropenic fever, will admit with cefepime pending blood cultures
Occasional wrong word or 'sound a like' substitutions may have occurred due to the inherent limitations of voice recognition software. Read the chart carefully and recognize, using context, where substitutions have occurred.
*Pulse Oximetry
SaO2: 99
Oxygen Mode of Delivery: Room air
Patient hypoxic: no
*Critical Care Note
Total Time (30-74mins, 75-104mins- exclusive of procedures): Not Applicable
ED Attending Note
-
Portions of this chart may have been created with voice recognition software.� Occasional wrong word or��sound alike� substitutions may have occurred due to the inherent limitations of voice recognition software.
Discharge Plan
Departure
Patient Disposition: Admit
Date of Disposition: 09/05/24
Time of Disposition: 02:09
Admit to: Med/Surg
Presentation/result/management discussed w/ accepting MD/DO: Hospitalist
Discharge Problem:
Neutropenic fever
Prescriptions:
No Action
docusate sodium [Colace] 100 mg Capsule
100 mg PO BID PRN (Reason: constipation)
loratadine [Claritin] 10 mg Tablet
10 mg PO DAILY
venetoclax 100 mg Tablet
400 mg PO DIRECTED
Patient Comments:
09/03/2024, per pt., he takes this med. with his 7-day Vidaza infusion and for 7 days after it every 28 days; however, there is no future doses ordered of Vidaza per OID. Last Vidaza dose 08/21/24
levofloxacin 500 mg tablet
500 mg PO DAILY
Patient Comments:
09/03/2024, filled on 08/02/2024 for 30-day supply.
ergocalciferol (vitamin D2) 1,250 mcg (50,000 unit) capsule
1,250 mcg PO WE@0800
acyclovir 400 mg Tablet
400 mg PO BID Qty: 60 2RF
atorvastatin 40 mg Tablet
40 mg PO HS
acetaminophen [Tylenol Extra Strength] 500 mg Tablet
1,000 mg PO DAILY
cyanocobalamin (vitamin B-12) 1,000 mcg tablet
3,000 mcg PO DAILY
voriconazole 200 mg tablet
200 mg PO Q12H
Patient Comments:
09/03/2024, per pt., last dose is tonight.
midodrine 5 mg Tablet
5 mg PO TID PRN (Reason: SBP<110) Qty: 0 0RF
famotidine 20 mg Tablet
20 mg PO [id number] PRN (Reason: NAUSEA)
sodium chloride 0.65 % Aerosol,[place]
2 spray INTRANASAL Q4HPRN PRN (Reason: congestion)
Visbiome 112.5 billion cell Capsule
1 cap PO DAILY Qty: 0
allopurinol 300 mg Tablet
300 mg PO DAILY Qty: 0 0RF
Interventions
Interventions:
*Risk Screen - Suicide Last Done: 09/05/24 01:20
*General Assessment Last Done: 09/05/24 01:20
*Neglect/Abuse Screening Last Done: 09/05/24 01:20
*ED- Fall Risk Assessment Last Done: 09/05/24 01:20
*ED COVID-19 Vaccine History Last Done: 09/05/24 01:20
Discharge Date and Time
Print Language: ROMANIAN
[2024-09-05 02:09] LABS: Lactic Acid 1.1 mmol/L (0.7-2.0)
[2024-09-05] MEDS: MAXIPIME 1000 MG IV (02:19)
--- NOTE | 2024-09-05 02:58 | HPS.HSE ---
Family Physician
-
Family Physician: NOT KNOW UNKNOWN - PT DOES
Chief Complaint
-
Tachycardia and fever
History of Present Illness
Patient with MDS who presents to the emergency department with tachycardia and fever.
This is a 74-year-old with a past medical history of MDS with transformation to AML currently on chemotherapy with evidence, last treatment 08/12, hyperlipidemia, orthostatic hypotension recently admitted to Dr. Bernard and discharged yesterday for
hypotension for which workup revealed anemia with a hemoglobin of 6.4 and severe thrombocytopenia to 4. Patient received transfusions with 2 units of packed red blood cells and 2 unit of platelets. ED hypotension and tachycardia improved and
patient was ultimately discharged to follow-up. He remained afebrile throughout the hospital course. Is ANC was 0 throughout. He had no bleeding episodes.
After receiving the second unit of platelet patient was discharged home. Upon arriving home initially felt well. However when he tried to get up from a seated position he felt very weak and was unable to do so. He had multiple episodes where he
tried to get up and then felt very very weak. He reported that later in the evening to try to get up 1 more time and his legs just gave way as he was walking and he fell. At that point EMS was called.
He did not recall having any fevers at home. He denies any headache. He denies striking his head. He denies any urinary symptoms. He has some loose stools in the in the day from taking Colace but denies sebastien diarrhea. Denies any abdominal
pain. He denies any new rash.
He was diagnosed with right upper lobe fungal pneumonia for which he was treated initially with with voriconazole and is now on posaconazole. He denies any worsening cough shortness of breath or hypoxia. He denies any chest pain.
The emergency department today was tachycardic in the 129, his blood pressure was stable at 127/60, temperature was 101.7.
ECG shows sinus tach at 111. Lactic acid was 1.1. WBC was 0.1, ANC 0.0, hemoglobin 9, platelets 20, electrolytes were stable with a sodium of 133 similar to prior. BUN/creatinine were stable. UA is pending.
Chest x-ray unchanged with right upper lobe opacity.
Medical History
Past Medical History
Past Medical History: Reports Other (myelodysplastic syndrome, AML, pancytopenia, history of multiple transfusions, hypercholesterolemia, gout, )
Past Surgical History: Reports Other (inguinal hernia repair)
Social History
Tobacco: Non-smoker
Alcohol: None
Drug: None
Family History
Family History: Not pertinent
Allergies / Home Medications
Allergies reflects when Allergies were last updated in [facility].
Home Medications with original date entered in [facility]
Allergy/Medication List:
Allergies
Allergy/AdvReac Type Severity Reaction Status Date / Time
Penicillins Allergy Intermediate Hives Verified 08/31/24 09:56
(s)
lidocaine Allergy Itching Verified 08/31/24 09:56
Home Medications
Lactobac no.2-Bifidobac no.1-S. thermo 112.5 billion cell capsule (Visbiome) 1 cap PO DAILY Supplement ##0 12/31/23
famotidine 20 mg tablet 20 mg PO [id number] PRN NAUSEA 12/31/23
sodium chloride 0.65 % nasal spray aerosol 2 spray intranasal Q4HPRN PRN congestion 12/31/23
allopurinol 300 mg tablet 300 mg PO DAILY Gout #0 tabs 01/09/24
docusate sodium 100 mg capsule (Colace) 100 mg PO BID PRN constipation 02/16/24
loratadine 10 mg tablet (Claritin) 10 mg PO DAILY 02/16/24
venetoclax 100 mg tablet 400 mg PO DIRECTED Antineoplastic Agent 06/26/24
ergocalciferol (vitamin D2) 1,250 mcg (50,000 unit) capsule 1,250 mcg PO WE@0800 vitamin D deficiency 07/23/24
acyclovir 400 mg tablet 400 mg PO BID ANTIVIRAL #60 tabs 08/02/24
levofloxacin 500 mg tablet 500 mg PO DAILY prophylaxis 08/08/24
acetaminophen 500 mg tablet (Tylenol Extra Strength) 1,000 mg PO DAILY 09/03/24
atorvastatin 40 mg tablet 40 mg PO HS 09/03/24
cyanocobalamin (vitamin B-12) 1,000 mcg tablet 3,000 mcg PO DAILY supplement 09/03/24
voriconazole 200 mg tablet 200 mg PO Q12H 09/03/24
Review of Systems
-
History Source: Patient
A 12 point ROS was completed and negative except as noted: Yes
Constitutional: Denies Fever or Chills
Respiratory: Denies Cough
Cardiac: Reports Palpitations and Other (Tachycardia); Denies Chest Pain or Diaphoresis
Abdomen/GI: Reports No Symptoms
: Reports No Symptoms
Musculoskeletal: Reports No Symptoms
Skin: Reports No Symptoms
Neurological: Reports No Symptoms
Endocrine: Reports No Symptoms
Hematologic/Lymphatic: Reports No Symptoms
Psych: Reports No Symptoms
Physical Exam
Vital Signs
Vital Signs
Temp Pulse Resp BP Pulse Ox
101.7 F H 129 26 127/62 99
09/05/24 01:37 09/05/24 02:00 09/05/24 02:00 09/05/24 02:00 09/05/24 02:10
Physical Exam
General: Well Developed, Well Nourished and No Apparent Distress
HEENT: NormoCephalic, Anicteric, Moist mucous membranes and PERRLA
Respiratory: Clear; No Wheezes or Rales
Cardiac: S1/S2, Regular Rhythm and Tachycardia
GI: Soft, Non Tender, Non Distended and Normal Bowel Sounds
Rectal: Deferred by Provider
Genito-urinary: Deferred by me
Musculoskeletal: No Clubbing, No Cyanosis and No Edema
Skin: Other (ecchymosis on skin)
Neuro: Awake, Alert, Oriented and AO x 3
Psych: Calm
Laboratory Results
-
09/05/24 01:27
09/05/24 01:27
Laboratory Results
Lactic Acid Cancelled 09/05/24 05:45
Total Bilirubin 1.0 mg/dl (0.2-1.3) 09/05/24 01:27
AST 37 U/L (17-59) 09/05/24 01:27
ALT 38 U/L (0-50) 09/05/24 01:27
Alkaline Phosphatase 145 U/L (38-126) H 09/05/24 01:27
Data Reviewed
-
Diagnostic Radiology: Image Personally Visualized and interpreted
Medical Tests (Nuc Med, Echo, EKG etc): Image Personally Visualized and interpreted
Lab Data: Labs Reviewed by me
Old Records: Reviewed
Impression/Plan
-
IMPRESSION:
74-year-old with past medical history significant for MDS transfusion dependent and on chemo with last chemo on 610, neutropenia, fungal pneumonia on antifungal agent, thrombocytopenia who was admitted recently for hypotension and weakness status
post transfusion of blood and platelets at discharge. He now returns to the emergency department with the weakness and collapse and was found to be febrile to one 1.7. No obvious source of infection at this time. + Tachycardia, telemetry with
significant sinus arrhythmia and irregularity but it is all sinus and not atrial fibrillation.
PLAN:
Febrile neutropenia -tachycardia but otherwise hemodynamically stable, chest x-ray is unchanged and patient has no new pulmonary symptoms. No new skin findings abscesses or urinary findings.
- Admit to telemetry
- Continue isolation
- Viral panel
- Blood cultures, urine cultures
- MRSA swab
- IV cefepime for now
- Continue with gentle hydration
- Completed voriconazole 09/03
- Continue patient prophylactic antiviral, hold the levofloxacin
- ID consultation
- Oncology consultation
Thrombocytopenia -MDS, transfusion dependent currently platelet count of 20, no evidence of bleeding
- No transfusion at this time
- Oncology consult
DVT prophylaxis�SCDs
CODE STATUS�full code
--- NOTE | 2024-09-05 04:15 | EDRN ---
Patient placed on a bedpan he thought he had to have a bowl movement because he was passing a lot of gas, patient did not go, taken of og, other smith ok.
[2024-09-05 05:02] LABS: COVID-19 Antigen Negative (Negative)
[2024-09-05] MEDS: NSS 1000 IV ×2 (06:10→21:58)
[2024-09-05] MEDS: STERILE WATER FOR INJECTION 10 ML IV ×3 (06:21→21:58)
[2024-09-05] MEDS: MAXIPIME 2000 MG IV ×3 (06:21→21:57)
[2024-09-05 07:32] LABS: Hematocrit 24.5 % (39.0-52.0); Hemoglobin 8.5 g/dL (13.0-18.0); Mean Corp Hgb Conc. 34.7 g/dL (33.0-37.0); Mean Corpuscular Hgb 28.3 pg (27.0-31.0); Mean Corpuscular Volume 81.7 fL (80.0-94.0); Platelet Count 15 10^3/uL (130-400); Red Cell Dist. Width 14.7 % (11.5-14.5); White Blood Cell Count 0.1 10^3/uL (4.8-10.8)
--- NOTE | 2024-09-05 07:50 | CON.ONC ---
Consultation
-
Date Consultation Requested: 09/05/24
Date Consultation Performed: 09/05/24 (0751)
Requesting Provider: Madhav
Performing Provider: Dillon
Reason for Consultation: Pancytopenia, end-stage MDS
Impression
Impression
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
Chronic pancytopenia, transfusion dependent
Severe deconditioning
Neutropenic fever
Plan
Plan
Long discussion with patient regarding my opinion that at this point he was best served by home hospice care. He is inclined to agree. He just wanted someone to tell him this directly and was waiting for the Dr. Cano consultation scheduled for
today. At this point, further transfusion support is unlikely to be beneficial. He has been started on antibiotic therapy for neutropenic fever but this too is of limited benefit as his pancytopenia is unlikely to improve. My recommendation would
be to consult hospice care to make plans to initiate hospice prior to him being discharged home and then he can be discharged with hospice services in place. He is agreeable to this plan. I did explain to him that hospice care patients do not
receive transfusions, infusion hospitalizations but can do telehealth office visits and their goals are for home palliation. I will consult home hospice.
Patient History
History of Present Illness
74-year-old man recently hospitalized for 2 days and discharged yesterday made it home and was unfortunately so weak that he fell getting into bed and called 911. He was found to be tachycardic and febrile. He returned to the hospital by EMS and
was hospitalized with febrile neutropenia with Tmax = 101.7. He has bruises all over his body. He actually had talked with Dr. Byrne and had a consultation set up for home hospice that was pending. He also had a follow-up scheduled for today
with Dr. Cano who co-manages him at [facility]. That appointment has been rescheduled for a telehealth next Tuesday. Other than the initial fever of 101.7, subsequent to temperatures have been normal. He remains weak. He is still considering hospice
care and just wanted someone to look him in the eye and tell him, that is what he needs.
Past-Medical/Surgical History
PMH:
Fungal pneumonia
MDS transition to AML
Chronic pancytopenia
History of multiple transfusions in alloimmunization
Hypercholesterolemia
Gout
PSH:
Hernia repair
SH:
Denies tobacco or alcohol abuse
Patient Medication
�Medication �Instructions �Recorded �Confirmed �Last Taken �Type
Lactobac no.2-Bifidobac no.1-S. 1 cap PO DAILY Supplement ##0 12/31/23 09/05/24 09/03/24 History
thermo 112.5 billion cell capsule
(Visbiome)
famotidine 20 mg tablet 20 mg PO [id number] PRN NAUSEA 12/31/23 09/05/24 09/02/24 History
sodium chloride 0.65 % nasal spray 2 spray intranasal Q4HPRN PRN 12/31/23 09/05/24 09/03/24 History
aerosol congestion
allopurinol 300 mg tablet 300 mg PO DAILY Gout #0 tabs 01/09/24 09/05/24 09/03/24 Rx
docusate sodium 100 mg capsule 100 mg PO BID PRN constipation 02/16/24 09/05/24 09/01/24 History
(Colace)
loratadine 10 mg tablet (Claritin) 10 mg PO DAILY Allergies 02/16/24 09/05/24 09/03/24 History
venetoclax 100 mg tablet 400 mg PO DIRECTED 06/26/24 09/05/24 08/30/24 History
Antineoplastic Agent
ergocalciferol (vitamin D2) 1,250 1,250 mcg PO WE@0800 vitamin D 07/23/24 09/05/24 08/29/24 History
mcg (50,000 unit) capsule deficiency
acyclovir 400 mg tablet 400 mg PO BID ANTIVIRAL #60 tabs 08/02/24 09/05/24 09/03/24 Rx
levofloxacin 500 mg tablet 500 mg PO DAILY prophylaxis 08/08/24 09/05/24 09/03/24 History
acetaminophen 500 mg tablet 1,000 mg PO DAILY Pain 09/03/24 09/05/24 09/03/24 History
(Tylenol Extra Strength)
atorvastatin 40 mg tablet 40 mg PO HS High Cholesterol 09/03/24 09/05/24 09/02/24 History
cyanocobalamin (vitamin B-12) 3,000 mcg PO DAILY supplement 09/03/24 09/05/24 09/03/24 History
1,000 mcg tablet
voriconazole 200 mg tablet 200 mg PO Q12H Infection 09/03/24 09/05/24 09/03/24 History
midodrine 5 mg tablet 5 mg PO TID PRN SBP<110 #0 tabs 09/04/24 09/05/24 Unknown Rx
Active Medications
Generic Name Dose Route Start Last Admin
Trade Name Freq PRN Reason Stop Dose Admin
Acetaminophen 650 mg 09/05/24 04:50
Acetaminophen 325 Mg Tablet PO 10/03/24 04:49
Q4HPRN PRN
mild pain/MAC/temp> 100.4F
Acyclovir Sodium 400 mg 09/05/24 08:00
Acyclovir Sodium 200 Mg Capsule PO 10/03/24 07:59
BID JAMAR
Allopurinol 300 mg 09/05/24 08:00
Allopurinol 300 Mg Tablet PO 10/03/24 07:59
DAILY JAMRA
Atorvastatin Calcium 40 mg 09/05/24 22:00
Atorvastatin (Lipitor) 40 Mg Tablet PO 10/03/24 21:59
HS JAMAR
Cefepime HCl 2,000 mg 09/05/24 06:00 09/05/24 06:21
Cefepime Hcl 2,000 Mg/12.5 Ml Vial IV 2,000 mg
Q8H JAMAR Administration
Cyanocobalamin 3,000 mcg 09/05/24 08:00
Cyanocobalamin 1,000 Mcg Tablet PO 10/03/24 07:59
DAILY JAMAR
Docusate Sodium 100 mg 09/05/24 04:50
Docusate Sodium 100 Mg Capsule PO 10/03/24 04:49
BID PRN
constipation
Famotidine 20 mg 09/05/24 04:50
Famotidine 20 Mg Tablet PO 10/03/24 04:49
[id number] PRN
NAUSEA
Sodium Chloride 1,000 mls @ 75 mls/hr 09/05/24 04:50 09/05/24 06:10
Nss IV 1,000 mls
[id number] JAMAR Administration
Lactobacillus/Bifidobacterium 1 cap 09/05/24 08:00
Lactobac/Bifidobac (Visbiome) PO 10/03/24 07:59
DAILY JAMAR
Loratadine 10 mg 09/05/24 08:00
Loratadine 10 Mg Tablet PO 10/03/24 07:59
DAILY JAMAR
Midodrine 5 mg 09/05/24 04:50
Midodrine 5 Mg Tablet PO 10/03/24 04:49
TID PRN
SBP<110
Polyethylene Glycol 17 grams 09/05/24 04:50
Polyethylene Glycol Powder 17 Grams Packet PO 10/03/24 04:49
DAILYPRN PRN
constipation
Sodium Chloride 0 flush 09/05/24 03:00
Sodium Chloride 0.9% (Flush) Syringe IV 10/03/24 02:59
PER PROTOCOL JAMAR
Sodium Chloride 2 drops 09/05/24 04:50
Saline Mist For Peds NASAL 10/03/24 04:49
Q4HPRN PRN
congestion
Sterile Water 10 ml 09/05/24 06:00 09/05/24 06:21
Sterile Water For Injection 10 Ml Vial IV 10/03/24 05:59 10 ml
Q8H JAMAR Administration
Physical Exam
-
General: No Apparent Distress, Comfortable, Conversant and Appears Chronically Ill
HEENT: Negative Jaundice
Cardiology: S1 and S2
Pulmonary: Clear
GI: Soft
Skin: Other (Multiple ecchymoses seen)
Labs
Lab Results
WBC 0.1 10^3/uL (4.8-10.8) L* 09/05/24 06:51
RBC 3.00 10^6/uL (4.70-6.10) L 09/05/24 06:51
Hgb 8.5 g/dL (13.0-18.0) L 09/05/24 06:51
Hct 24.5 % (39.0-52.0) L 09/05/24 06:51
MCV 81.7 fL (80.0-94.0) 09/05/24 06:51
MCH 28.3 pg (27.0-31.0) 09/05/24 06:51
MCHC 34.7 g/dL (33.0-37.0) 09/05/24 06:51
RDW 14.7 % (11.5-14.5) H 09/05/24 06:51
Plt Count 15 10^3/uL (130-400) L* D 09/05/24 06:51
MPV 10.0 fL (7.4-10.4) 09/05/24 06:51
Abs Immat Gran (auto) 0.0 10^3/uL (0-0.05) 09/05/24 01:27
Absolute Neuts (auto) 0.0 10^3/uL (1.4-6.5) L* 09/05/24 01:27
Absolute Lymphs (auto) 0.1 10^3/uL (1.2-3.4) L 09/05/24 01:27
Absolute Monos (auto) 0.0 10^3/uL (0.1-0.6) L 09/05/24 01:27
Absolute Eos (auto) 0.0 10^3/uL (0-0.7) 09/05/24 01:27
Absolute Basos (auto) 0.0 10^3/uL (0-0.2) 09/05/24 01:27
Immature Gran % 0.0 % (0-0.5) 09/05/24 01:27
Neutrophils % 12.5 % (42.2-75.2) L 09/05/24 01:
Lymphocytes % 62.5 % (20.5-51.1) H 09/05/24 01:27
Monocytes % 25.0 % (1.7-9.3) H 09/05/24 01:27
Eosinophils % 0.0 % (0-6) 09/05/24 01:
Basophils % 0.0 % (0-2) 09/05/24 01:27
Creatinine 0.7 mg/dL (0.7-1.3) 09/05/24 01:27
Vital Signs
Vital Signs
Temp Pulse Resp BP Pulse Ox
98.0 F 70 26 114/66 97
09/05/24 05:28 09/05/24 05:28 09/05/24 04:15 09/05/24 05:28 09/05/24 05:28
--- NOTE | 2024-09-05 08:09 | CM ---
Reviewed the chart notes. CM consult for hospice received. Referral for Hospice sent in [facility]. Patient resides with spouse in a two story home with one step to enter and bedroom on first level. Patient has a rolling walker and w/c in
home. CM continues to be available to patient/family and is monitoring medical plan for needs at discharge.
Plan: Discharge to home on hospice.
--- NOTE | 2024-09-05 08:10 | WOUNDNOTE ---
BOLIVAR RN NOTE: Patient readmitted with neutropenic fever less than 24 hrs after discharge, plan is home hospice per latest report. Recommend continue with silicone foam dressing to unstageable PI's on buttocks and frequent repositioning. Will update
wound care orders and sign off.
[2024-09-05 08:11] LABS: Blood Urea Nitrogen 27 mg/dl (9-20); Calcium 7.4 mg/dl (8.4-10.2); Carbon Dioxide 27 mmol/L (22-30); Chloride 104 mmol/L (98-107); Estimated Creatinine Clearance 86 ml/min; Glucose 113 mg/dl (70-99); Potassium 4.1 mmol/L (3.5-5.1); Sodium 134 mmol/L (135-145); eGFR > 60.00
[2024-09-05] MEDS: VISBIOME 1 CAP PO (08:12)
[2024-09-05] MEDS: CLARITIN 10 MG PO (08:12)
[2024-09-05] MEDS: ZOVIRAX 400 MG PO ×2 (08:13→21:57)
[2024-09-05] MEDS: ZYLOPRIM 300 MG PO (08:13)
[2024-09-05] MEDS: VITAMIN B-12 3000 MCG PO (08:13)
--- NOTE | 2024-09-05 08:32 | W.PN.HOSP.TC ---
Today's Communication/Plan
-
;/
Assessment / Plan
Assessment / Plan
Assessment/Plan
#Febrile Neutropenia and sepsis Present on admission.
-CXR- Patchy airspace opacities in the right upper lobe, most compatible with pneumonia. Minor opacity in the left midlung, more linear in configuration. No pleural effusion or pneumothorax. Skin folds overlie the periphery of the right hemithorax.
The cardiomediastinal silhouette is stable. Chronic degenerative changes of the spine.
-Negative for covid/flu
-Blood cultures, urine cultures pending
-Initiated on IV cefepime 2g IV Q8
-Was started on Voriconazole 200mg for opportunistic infection at the last hospitalization in July, as there were concerns for false negative Aspergillosis galactomannan assay and Fungitell
-Instructed by ID to continue Voriconazole for 2-3 months and/or until repeat CT chest improves
-Continue Voriconazole
-Continue Prophylactic Antiviral, Hold Levofloxacin
-ID consulted
-Oncology consulted, input appreciated.
-After goals of care discussion with oncology, patient agreeable for hospice, as prognosis overall poor.
-Consult Case Management for Home Hospice.
-Discussed code status with patient at bedside.
#Acute on Chronic Anemia secondary to Below
#AML
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
#Hx of Multiple transfusions
-Completed Vidaza 08/21, currently on Venetoclax.
-no signs of acute bleeding
-s/p Transfused total 2units PRBC, 2 unit platelets at his last admission 09/03-09/04
-Transfuse for Hgb <7, platelets <10
-Monitor CBC
-Neutropenic Precautions
-Consider G-CSF(Filgrastim) if prolonged neutropenia
#Generalized Weakness
-Likely multifactorial in the setting of chronic conditions vs Anemia
-No focal neurological deficits reported
-Monitor for changes in mental status
-PT/OT
-Fall precautions
#Chronic Orthostatic Hypotension
-Monitor vitals, pressor support if needed to keep MAP>65.
-Home Midodrine PRN for SBP<110
#Hyperlipidemia
-Continue Atorvastatin
#Gout
-Uric Acid 2.7
-Continue Allopurinol
#GERD
-Continue Famotidine
Code Status: DNR
DVT PPx- SCDs
Anticipated Discharge: Within 24 hours
Subjective/Interval History
-
Patient seen and examined at bedside. Complains of fatigue. Denies SOB.
Objective Data
-
Labs:
Laboratory Results
09/05/24 09/05/24 09/05/24
01:27 06:51 06:52
WBC 0.1 L* 0.1 L*
Hgb 9.0 L 8.5 L
Hct 25.2 L 24.5 L
Plt Count 20 L* D 15 L* D
Sodium 133 L 134 L
Potassium 4.1 4.1
Chloride 104 104
Carbon Dioxide 24 27
BUN 27 H 27 H
Creatinine 0.7 0.8
Glucose 119 H 113 H
Calcium 7.5 L 7.4 L
Total Bilirubin 1.0
AST 37
ALT 38
Alkaline Phosphatase 145 H
Vital Signs:
Vital Signs
Temp Pulse Resp BP Pulse Ox
98.2 F 119 16 146/94 97
09/05/24 07:30 09/05/24 07:30 09/05/24 07:30 09/05/24 07:30 09/05/24 07:30
Physical Exam
-
General: Appears Chronically Ill
Respiratory: Rhonchi
Cardiac: Regular Rhythm and S1/S2
GI: Soft, Nontender, Nondistended and Normal Bowel Sounds
Musculoskeletal: No Edema
Skin: Other (scattered areas of ecchymosis on skin)
Neuro: Nonfocal/Grossly Intact
Psych: Calm
--- NOTE | 2024-09-05 10:36 | VATNOTE ---
Right arm cephalic #18 IV access noted to be prehospital on routine rounds. IV access not changed. business office coordinator at the bedside. Primary RN reports pt. going home on Hospice.
--- NOTE | 2024-09-05 11:55 | CON.ID ---
Consultation
-
Date/Time Consultation Requested: September 05, 2024 0450
Date/Time Consultation Performed: September 05, 2024 1200
Requesting Provider: Dr. Raymundo
Performing Provider: Dr. Nelly Marte
Reason for Consultation: Neutropenic fever
Chief Complaint / Past History
Chief Complaint
Weakness and fall
History of Present Illness
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 He was recently hospitalized September 03 to
September 04 due to increased weakness and amatory dysfunction. He received packed red blood cells and platelet transfusion. He was discharged to home September 04. However that evening was profoundly weak. He tried to get up but fell. EMS brought him
back to the hospital. In ED temperature one 101.7. He is currently on cefepime. He remains profoundly pancytopenic/neutropenic. He reports his is now speaking with hospice. His dry cough is stable. No headache. No nausea vomiting.
Complains of diarrhea for the past 2 weeks. No abdominal pain. No urine symptoms. No ill contacts.
Past History
Additional Past Medical History:
MDS suspected progression to AML on Vidaza, Venetoclax; ppx acyclovir, levofloxacin
Chronic pancytopenia, transfusion dependent
History of small intracranial bleed after a fall
Nasal fracture after a fall
Inguinal hernia repair
Allergy History:
Penicillins Allergy (Intermediate, Verified 09/05/24 01:25)
Hives ()
lidocaine Allergy (Verified 09/05/24 01:25)
Itching
Medications Reviewed: Yes
Current Antibiotics:
Cefepime 2q8
Social History
Tobacco: Non-Smoker
Alcohol: None
Drug: None
Personal:
Living: With Family
Employment: Retired
Family History
Family History: Not Pertinent
Review of Systems
Review of Systems
General: Change in Appetite; Negative Chills
HEENT: Negative Sinus Problems, Headache or Pharyngitis
Respiratory: Dyspnea and Cough; Negative Sputum Production
Gasteroenterology: Diarrhea; Negative Nausea or Vomiting
Endocrine: Weakness and Fatigue
All systems: All other systems were reviewed and were negative
Vital Signs
Temp Pulse Resp BP Pulse Ox
99.3 F 108 18 121/61 94
09/05/24 11:10 09/05/24 11:10 09/05/24 11:10 09/05/24 11:10 09/05/24 11:10
Selected Entries
09/05/24
01:37
Temp 101.7 F H
Physical Exam
Physical Exam
Constitutional: Chronically Ill
Head: Other (No frontal or max or sinus tenderness)
Eyes: No Conjunctival Hemorrhage
Oral: Negative No Thrush
Cardiovascular: Irregular Rate and Other (Tachycardic)
Pulmonary: Coarse
Gastrointestinal: Soft, Non Tender, Non Distended and Normal Bowel Sounds
Extremities: Edema (1+ BLE)
Neurological: AO x 3; Negative Meningeal Signs
Lab / Diagnostic Study Results
09/05/24 06:51
09/05/24 06:52
Abs Immat Gran (auto) 0.0 10^3/uL (0-0.05) 09/05/24 01:27
Absolute Neuts (auto) 0.0 10^3/uL (1.4-6.5) L* 09/05/24 01:27
Absolute Lymphs (auto) 0.1 10^3/uL (1.2-3.4) L 09/05/24 01:27
Absolute Monos (auto) 0.0 10^3/uL (0.1-0.6) L 09/05/24 01:27
Absolute Basos (auto) 0.0 10^3/uL (0-0.2) 09/05/24 01:27
Immature Gran % 0.0 % (0-0.5) 09/05/24 01:27
Neutrophils % 12.5 % (42.2-75.2) L 09/05/24 01:27
Lymphocytes % 62.5 % (20.5-51.1) H 09/05/24 01:27
Monocytes % 25.0 % (1.7-9.3) H 09/05/24 01:27
Eosinophils % 0.0 % (0-6) 09/05/24 01:
Basophils % 0.0 % (0-2) 09/05/24 01:27
Lactic Acid Cancelled 09/05/24 05:45
Microbiology Results
Micro:
09/05/24 04:22 Influenza Types A & B (MI) - Final
Nasal Swab Negative for Influenza A & B, NAAT
Negative results must be combined with clinical observations
and patient history.
Nucleic Acid Amplification test (NAAT)performed on the
[employer] platform.
09/05/24 01:49 Blood Culture - Pending
Blood/Venous
09/05/24 01:49 Blood Culture - Pending
Blood/Venous
09/05/24 CXR: Right upper lobe pneumonia. Mild pneumonia versus atelectasis in the left midlung.
Assessment / Plan
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
# Chronic neutropenia/pancytopenia due to MDS/AML
# Fever
# Recent hx of suspected fungal pneumonia remains on Voriconazole 200mg po q12 since 08/01/24
# Deconditioned state
# Diarrhea
- Pt is hospice appropriate.
- When hospice arranged, dc abx's and antifungal.
- Supportive care.
--- NOTE | 2024-09-05 12:02 | HOSPNOTE ---
Spoke with spouse and discussed hospice and the plan would be for patient to go home with care in place. I spoke with spouse and she will be calling [facility] for caregivers. I will order equipment and have it delivered and the plan would be
home Tuesday with caregiving. The spouse is in agreement with hospice but does not want him to go to a facility since she would be unable to see him daily. The patient has a [facility] care policy and the spouse will be calling today. CM, floor RN and
Attending aware of plan.
[2024-09-05] MEDS: IMODIUM 2 MG PO (13:10)
[2024-09-05 16:04] LABS: Urine Albumin 1+ (Neg - Trace); Urine Bilirubin Negative (Negative); Urine Character Clear (Clear); Urine Color Yellow; Urine Glucose Negative (Negative); Urine Ketone Negative (Negative); Urine Leukocyte Negative (Negative); Urine Nitrite Negative (Negative); Urine Occult Blood 1+ (Negative); Urine Specific Gravity 1.015 (<1.030); Urine Urobilinogen Negative (Neg - 1+)
[2024-09-05 16:56] LABS: Urine Mucus Moderate; Urine Squamous Cell 0-2 /LPF (Few); Urine White Cell 0-2 /HPF (0-5)
[2024-09-05] MEDS: LIPITOR 40 MG PO (21:57)
[2024-09-05] MEDS: FLUSH (NSS) 2 FLUSH IV (22:00)
--- NOTE | 2024-09-06 02:04 | PTCARENOTE ---
Tele alarm for HR 170's. Rate not sustained. Patient sleeping quietly. Labs added to am draw.
[2024-09-06 03:41] VITALS: BP 115/71
[2024-09-06] MEDS: MAXIPIME 2000 MG IV ×2 (05:34→15:00)
[2024-09-06] MEDS: STERILE WATER FOR INJECTION 10 ML IV ×2 (05:34→14:59)
[2024-09-06] MEDS: FLUSH (NSS) 2 FLUSH IV (05:35)
[2024-09-06 06:00] VITALS: BMI 22.1
[2024-09-06 07:16] LABS: Hematocrit 21.9 % (39.0-52.0); Hemoglobin 7.9 g/dL (13.0-18.0); Mean Corp Hgb Conc. 36.1 g/dL (33.0-37.0); Mean Corpuscular Hgb 29.5 pg (27.0-31.0); Mean Corpuscular Volume 81.7 fL (80.0-94.0); Mean Platelet Volume 12.1 fL (7.4-10.4); Platelet Count 13 10^3/uL (130-400); Red Blood Cell Count 2.68 10^6/uL (4.70-6.10); Red Cell Dist. Width 14.6 % (11.5-14.5); White Blood Cell Count 0.1 10^3/uL (4.8-10.8)
--- NOTE | 2024-09-06 07:19 | W.PN.HOSP.TC ---
Addendum entered and electronically signed by Lucius Corey DO 09/06/24 14:20:
CDI: Immunosuppression, unstageable sacral pressure injury POA
Original Note:
Today's Communication/Plan
-
;/
Assessment / Plan
Assessment / Plan
Assessment/Plan
#Febrile Neutropenia and sepsis Present on admission.
-CXR- Patchy airspace opacities in the right upper lobe, most compatible with pneumonia. Minor opacity in the left midlung, more linear in configuration. No pleural effusion or pneumothorax. Skin folds overlie the periphery of the right hemithorax.
The cardiomediastinal silhouette is stable. Chronic degenerative changes of the spine.
-Negative for covid/flu
-Blood cultures prelim growing Gram Positive Cocci in clusters
-Initiated on IV cefepime 2g IV Q8
-Was started on Voriconazole 200mg for opportunistic infection at the last hospitalization in July, as there were concerns for false negative Aspergillosis galactomannan assay and Fungitell
-Instructed by ID to continue Voriconazole for 2-3 months and/or until repeat CT chest improves
-Continue Voriconazole
-Continue Prophylactic Antiviral, Hold Levofloxacin
-ID consulted
-Oncology consulted, input appreciated.
-After goals of care discussion with oncology, patient agreeable for hospice, as prognosis overall poor.
-Consult Case Management. set up d/c on Home Hospice tomorrow.
#Acute on Chronic Anemia secondary to Below
#AML
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
#Hx of Multiple transfusions
-Completed Vidaza 08/21, currently on Venetoclax.
-no signs of acute bleeding
-s/p Transfused total 2units PRBC, 2 unit platelets at his last admission 09/03-09/04
-Transfuse for Hgb <7, platelets <10
-Monitor CBC
-Neutropenic Precautions
-Consider G-CSF(Filgrastim) if prolonged neutropenia
#Generalized Weakness
-Likely multifactorial in the setting of chronic conditions vs Anemia
-No focal neurological deficits reported
-Monitor for changes in mental status
-PT/OT
-Fall precautions
#Chronic Orthostatic Hypotension
-Monitor vitals, pressor support if needed to keep MAP>65.
-Home Midodrine PRN for SBP<110
#Hyperlipidemia
-Continue Atorvastatin
#Gout
-Uric Acid 2.7
-Continue Allopurinol
#GERD
-Continue Famotidine
Code Status: DNR
DVT PPx- SCDs
Had an extensive discussion with patient today regarding his current medical status. Patient expressed confusion about labwork obtained this morning, stating he does not wish to purse further major medical interventions. He verbalized his intention
to pursue hospice care. Arrangements are in place for discharge to home with hospice services tomorrow.
Anticipated Discharge: Within 24 hours
Subjective/Interval History
-
Patient seen and examined at bedside.
Objective Data
-
Labs:
Laboratory Results
09/06/24
06:55
WBC 0.1 L*
Hgb 7.9 L
Hct 21.9 L
Plt Count 13 L*
Sodium Pending
Potassium Pending
Chloride Pending
Carbon Dioxide Pending
BUN Pending
Creatinine Pending
Glucose Pending
Calcium Pending
Vital Signs:
Vital Signs
Temp Pulse Resp BP Pulse Ox
99.2 F 95 16 115/71 92
09/06/24 03:41 09/06/24 03:41 09/06/24 03:41 09/06/24 03:41 09/06/24 03:41
I&O
09/05/24 09/06/24 09/07/24
06:59 06:59 06:59
Intake Total 1380 / 1380
Output Total 850 / 850
Balance 530 / 530
Review of Systems
-
All other systems: Reviewed and negative (except as documented)
Physical Exam
-
General: Appears Chronically Ill
Respiratory: Rhonchi
Cardiac: Regular Rhythm and S1/S2
GI: Soft, Nontender, Nondistended and Normal Bowel Sounds
Musculoskeletal: No Edema
Skin: Other (scattered areas of ecchymosis on skin)
Neuro: Nonfocal/Grossly Intact
Psych: Calm
[2024-09-06] MEDS: ZOVIRAX 400 MG PO ×2 (07:42→20:50)
[2024-09-06] MEDS: ZYLOPRIM 300 MG PO (07:42)
[2024-09-06] MEDS: VITAMIN B-12 3000 MCG PO (07:42)
[2024-09-06] MEDS: VISBIOME 1 CAP PO (07:42)
[2024-09-06] MEDS: CLARITIN 10 MG PO (07:42)
[2024-09-06 07:55] VITALS: BP 129/86
[2024-09-06 08:00] LABS: Blood Urea Nitrogen 27 mg/dl (9-20); Calcium 6.8 mg/dl (8.4-10.2); Carbon Dioxide 24 mmol/L (22-30); Chloride 108 mmol/L (98-107); Estimated Creatinine Clearance 83 ml/min; Glucose 106 mg/dl (70-99); Magnesium 1.6 mg/dl (1.6-2.3); Sodium 133 mmol/L (135-145); eGFR > 60.00
--- NOTE | 2024-09-06 09:57 | HOSPNOTE ---
Spoke with spouse and patient and all in agreement with discharge tomorrow with hospice. Equipment was ordered and will be delivered today. Once patient is home hospice will sign patient onto our service. The family will have [facility]
caregivers in place starting tomorrow. OOH DNR needed on chart and transport is needed. CM and Attending aware of plan. Transport will be set up for 11am.
[2024-09-06] MEDS: NSS IV (11:39)
--- NOTE | 2024-09-06 11:50 | CM ---
Reviewed the chart notes and spoke with the patient at the bedside. IMM reviewed. CM continues to be available to patient/family and is monitoring medical plan for needs at discharge.
Plan: Discharge to home tomorrow on Hospice service.
Medical necessity, transport, and [id number] DNR on chart.
--- NOTE | 2024-09-06 13:58 | PN.CDI ---
CDI
- -
CDI:
Physician Documentation Request
Admit Date: 09/05/24 03:42
Dear Doctor Deanne,
Clinical Indicators:
Patient admitted with febrile neutropenia and sepsis.
09/05 ID consult, 'MDS/AML refractory to therapy on ppx levofloxacin, acyclovir'
Home meds also include: Voriconazole 200 mg po q 12h (since 08/01/24)
Based on the above, could you clarify the appropriate diagnosis, if significant, that supports the above abnormalities and additional evaluation, monitoring and/or treatment rendered:
Immunosuppression
Normal immune status
Other, please specify
Use of terms such as suspected, likely, concern for, or probable (associated with a specific diagnosis that is being evaluated, monitored, or treated as if it exists) are acceptable and can be coded in the inpatient setting, when documented at the
time of discharge.
Thank you,
DEEPALI Ulloa RN
CDI Specialist
available via tiger text
Please use your independent medical judgment in providing your response.
--- NOTE | 2024-09-06 14:14 | PN.CDI ---
CDI
- -
CDI:
Physician Documentation Request
Admit Date: 09/05/24 03:42
Dear Doctor Deanne,
Clinical Indicators:
Patient admitted with febrile neutropenia and sepsis.
09/05 [facility] RN note, 'Recommend continue with silicone foam dressing to unstageable PI's on buttocks and frequent repositioning.'
09/05, 09/06 RN skin wound assessments: Sacrum Unstageable Pressure Injury POA
Physician documentation of the type and location of wounds is required for compliant documentation. Based on the above clinical findings and your assessment, please provide the following in your progress note:
1. Location of the ulcer/wound, including laterality.
2. Type (etiology) of ulcer/wound:
- Pressure (decubitus) ulcer
- Other
3. If a pressure ulcer, please also include the stage* of the ulcer:
- Stage 1 - Skin intact, non-blanchable redness
- Stage 2 - Partial thickness loss of dermis, includes intact or open blister
- Stage 3 - Full thickness tissue not including bone, tendon or muscle
- Stage 4 - Full thickness tissue loss, including exposed bone, tendon or muscle
- Unstageable - Full thickness loss in which the base of the ulcer is covered by slough (yellow, kulkarni, york, green or brown) and/or eschar (kulkarni, brown or black) in the wound bed.
- Unable to determine
Use of terms such as suspected, likely, concern for, or probable (associated with a specific diagnosis that is being evaluated, monitored, or treated as if it exists) are acceptable and can be coded in the inpatient setting, when documented at the
time of discharge.
Thank you,
DEEPALI Ulloa RN
CDI Specialist
available via tiger text
Please use your independent medical judgment in providing your response.
*Source: National Pressure Ulcer Advisory Panel (NPUAP)
--- NOTE | 2024-09-06 15:05 | W.PN.ID1 ---
Date of Service
Date of Service: September 06, 2024
Today's Communication
DC cefepime.
ID will sign off.
Assessment / Plan
# CoNS bacteremia x 2 drawn at the same time = contaminant.
# Fever x 1 resolved
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
# Chronic neutropenia/pancytopenia due to MDS/AML
# Recent hx of suspected fungal pneumonia, on Voriconazole 200mg po q12 since 08/01/24
# Deconditioned state
# Diarrhea
- DC cefepime.
- No need for further antifungal
- Home hospice tomorrow.
- Emotional support provided.
- ID will sign off.
Chief Complaint
-: Fever
Subjective / Review of Systems
Will go home tomorrow on hospice
Vital Signs / Physical Exam
Vital Signs
Vital Signs
Temp Pulse Resp BP Pulse Ox
98.7 F 101 16 129/86 95
09/06/24 07:55 09/06/24 07:55 09/06/24 07:55 09/06/24 07:55 09/06/24 07:55
Physical Exam
Constitutional: Comfortable, Chronically Ill and Cachetic
Pulmonary: Clear
Gastrointestinal: Soft, Non Tender and Non Distended
Extremities: Edema
Neurological: Awake and Oriented
Objective Data
Lab Data
Lab Results
09/06/24 06:55
09/06/24 06:55
Estimated Creat Clear 83 ml/min 09/06/24 06:55
Lactic Acid Cancelled 09/05/24 05:45
Total Bilirubin 1.0 mg/dl (0.2-1.3) 09/05/24 01:27
AST 37 U/L (17-59) 09/05/24 01:27
ALT 38 U/L (0-50) 09/05/24 01:27
Alkaline Phosphatase 145 U/L (38-126) H 09/05/24 01:27
Most recent labs reviewed.
Micro Results:
09/05/24 01:49 Blood Culture - Preliminary
Blood/Venous Positive culture in progress
Gram Stain - Final
09/05/24 01:49 Blood Culture - Preliminary
Blood/Venous Positive culture in progress
Gram Stain - Final
09/05/24 04:22 Influenza Types A & B (MI) - Final
Nasal Swab Negative for Influenza A & B, NAAT
Negative results must be combined with clinical observations
and patient history.
Nucleic Acid Amplification test (NAAT)performed on the
[employer] ([employer]) platform.
09/05/24 CXR: Right upper lobe pneumonia. Mild pneumonia versus atelectasis in the left midlung.
[2024-09-06] MEDS: LIPITOR 40 MG PO (22:23)
[2024-09-06 22:50] LABS: Glucose - Point of Care 109 mg/dl (70-99)
[2024-09-06 23:00] VITALS: BP 130/69
[2024-09-07] MEDS: ZOVIRAX 400 MG PO (07:15)
[2024-09-07] MEDS: CLARITIN 10 MG PO (07:15)
[2024-09-07] MEDS: VITAMIN B-12 3000 MCG PO (07:15)
[2024-09-07] MEDS: ZYLOPRIM 300 MG PO (07:15)
[2024-09-07] MEDS: VISBIOME 1 CAP PO (07:15)
[2024-09-07 07:16] VITALS: BP 114/68
--- NOTE | 2024-09-07 07:24 | W.PN.HOSP.TC ---
Today's Communication/Plan
-
;/
Assessment / Plan
Assessment / Plan
Assessment/Plan
#Febrile Neutropenia and sepsis Present on admission.
-CXR- Patchy airspace opacities in the right upper lobe, most compatible with pneumonia. Minor opacity in the left midlung, more linear in configuration. No pleural effusion or pneumothorax. Skin folds overlie the periphery of the right hemithorax.
The cardiomediastinal silhouette is stable. Chronic degenerative changes of the spine.
-Negative for covid/flu
-Blood cultures prelim growing Gram Positive Cocci in clusters
-Initiated on IV cefepime 2g IV Q8
-Was started on Voriconazole 200mg for opportunistic infection at the last hospitalization in July, as there were concerns for false negative Aspergillosis galactomannan assay and Fungitell
-Instructed by ID to continue Voriconazole for 2-3 months and/or until repeat CT chest improves
-Continue Voriconazole
-Continue Prophylactic Antiviral, Hold Levofloxacin
-ID consulted
-Oncology consulted, input appreciated.
-After goals of care discussion with oncology, patient agreeable for hospice, as prognosis overall poor.
-Consult Case Management. set up d/c on Home Hospice TODAY
#Acute on Chronic Anemia secondary to Below
#AML
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
#Hx of Multiple transfusions
Immunosuppression
-Completed Vidaza 08/21, currently on Venetoclax.
-no signs of acute bleeding
-s/p Transfused total 2units PRBC, 2 unit platelets at his last admission 09/03-09/04
-Transfuse for Hgb <7, platelets <10
-Monitor CBC
-Neutropenic Precautions
-Consider G-CSF(Filgrastim) if prolonged neutropenia
#Generalized Weakness
-Likely multifactorial in the setting of chronic conditions vs Anemia
-No focal neurological deficits reported
-Monitor for changes in mental status
-PT/OT
-Fall precautions
#Chronic Orthostatic Hypotension
-Monitor vitals, pressor support if needed to keep MAP>65.
-Home Midodrine PRN for SBP<110
#Hyperlipidemia
-Continue Atorvastatin
#Gout
-Uric Acid 2.7
-Continue Allopurinol
#GERD
-Continue Famotidine
#Unstageable sacral pressure injury POA
Code Status: DNR
DVT PPx- SCDs
Anticipated Discharge: Today
Subjective/Interval History
-
Patient seen and examined at Bedside.
Objective Data
-
Vital Signs:
Vital Signs
Temp Pulse Resp BP Pulse Ox
98.2 F 85 18 114/68 93
09/07/24 07:16 09/07/24 07:16 09/07/24 07:16 09/07/24 07:16 09/07/24 07:16
I&O
09/06/24 09/07/24 09/08/24
06:59 06:59 06:59
Intake Total 1380 / 1380 940 / 940
Output Total 850 / 850 850 / 850
Balance 530 / 530 90 / 90
Review of Systems
-
All other systems: Reviewed and negative (except as documented)
Physical Exam
-
General: Appears Chronically Ill
Respiratory: Rhonchi
Cardiac: Regular Rhythm and S1/S2
GI: Soft, Nontender, Nondistended and Normal Bowel Sounds
Musculoskeletal: No Edema
Skin: Other (scattered areas of ecchymosis on skin)
Neuro: AO x 3
Psych: Depressed
--- NOTE | 2024-09-07 10:16 | CM ---
Reviewed the chart notes. Patient for discharge today. [id number] DNR signed and placed on chart. CM continues to be available to patient/family and is monitoring medical plan for needs at discharge.
Plan: Discharge to home with Hospice services. Equipment was delivered to home. BLS transport.
Medical and transport forms on chart.
--- NOTE | 2024-09-07 10:25 | W.DCSUMMARY ---
Documented by User: Kiara Alicea MD, Resident 09/07/24 14:45
Discharge Summary
Discharge Data
Date of Admission: 09/05/24
Date of Discharge: 09/07/24
-
Pending Results: No
Hospital Course
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
and discharged 09/04 for hypotension for which workup revealed anemia with a hemoglobin of 6.4 and severe thrombocytopenia of 4. Patient received transfusions with 2 units of packed red blood cells and 2 unit of platelets. hypotension and
tachycardia improved and patient was ultimately discharged to follow-up. He remained afebrile throughout the previous hospital course. ANC was 0 throughout. He had no bleeding episodes. After receiving the second unit of platelet patient was
discharged home.
Upon arriving home, he initially felt well. However when he tried to get up from a seated position he felt very weak and was unable to do so. He had multiple episodes where he tried to get up and then felt very very weak. He reported that later
in the evening to try to get up 1 more time and his legs just gave way as he was walking and he fell. At that point EMS was called.
Presentation to the ED on 09/05 patient was tachycardic in the 129, blood pressure stable 127/60, febrile with temperature one 101.7. ECG showed sinus tachycardia at 111. Given his febrile neutropenia, infectious disease was consulted. Blood
cultures, urine cultures, viral panel, MRSA swab were ordered. He was started on antibiotics with IV cefepime. Oncology was consulted given his chronic conditions.
The next morning, he was evaluated by oncology,who had a long goals of care long discussion with the patient regarding his overall poor prognosis. Hospice care conversation was brought up with patient. Patient was agreeable for hospice. Case
vascular manager was consulted to set up home hospice. Patient to be discharged today on home hospice.
Discharge Plan
-
Patient Disposition: Home with Hospice
Discharge Diagnosis/Procedures: Febrile neutropenia
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
Chronic pancytopenia
Myelodysplastic syndrome
Condition: Critical
Diet: No restrictions
Activity: With assistance
Other Services: Hospice
Activity Restrictions/Additional Instructions:
Wound Care Instructions
buttocks: clean with soap and water, sacral silicone foam change q 2-3 days and prn soilage
frequent repositioning while in bed and sitting
air cushion when sitting
Referrals:
UNKNOWN - PT DOES,NOT KNOW [Family Provider]
Additional Discharge Medication Instructions: Stop all medications that are not directed for comfort, once signed on to hospice at home
Prescriptions:
Continued
docusate sodium [Colace] 100 mg Capsule
100 mg PO BID PRN (Reason: constipation)
loratadine [Claritin] 10 mg Tablet
10 mg PO DAILY
venetoclax 100 mg Tablet
400 mg PO DIRECTED
Patient Comments:
09/03/2024, per pt., he takes this med. with his 7-day Vidaza infusion and for 7 days after it every 28 days; however, there is no future doses ordered of Vidaza per OID. Last Vidaza dose 08/21/24
levofloxacin 500 mg tablet
500 mg PO DAILY
Patient Comments:
09/03/2024, filled on 08/02/2024 for 30-day supply.
ergocalciferol (vitamin D2) 1,250 mcg (50,000 unit) capsule
1,250 mcg PO WE@0800
acyclovir 400 mg Tablet
400 mg PO BID Qty: 60 2RF
atorvastatin 40 mg Tablet
40 mg PO HS
acetaminophen [Tylenol Extra Strength] 500 mg Tablet
1,000 mg PO DAILY
cyanocobalamin (vitamin B-12) 1,000 mcg tablet
3,000 mcg PO DAILY
voriconazole 200 mg tablet
200 mg PO Q12H
Patient Comments:
09/03/2024, per pt., last dose is tonight.
midodrine 5 mg Tablet
5 mg PO TID PRN (Reason: SBP<110) Qty: 0 0RF
famotidine 20 mg Tablet
20 mg PO [id number] PRN (Reason: NAUSEA)
sodium chloride 0.65 % Aerosol,Dawson
2 spray INTRANASAL Q4HPRN PRN (Reason: congestion)
Visbiome 112.5 billion cell Capsule
1 cap PO DAILY Qty: 0
allopurinol 300 mg Tablet
300 mg PO DAILY Qty: 0 0RF
Discharge Orders:
Discharge Patient (As Directed); Ordered 09/07/24
Ordered By: Lucius Corey
Discharge Date and Time
Discharge Date/Time: 09/07/24 11:08
Print Language: CZECH

Documented by User: Lucius Corey DO 09/07/24 15:27
Discharge Summary
Discharge Data
Date of Admission: 09/05/24
Date of Discharge: 09/07/24
Total time spent discharging patient (in min): 32
Discharge Plan
-
Patient Disposition: Home with Hospice
Discharge Diagnosis/Procedures: Febrile neutropenia
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
Chronic pancytopenia
Myelodysplastic syndrome
Condition: Critical
Diet: No restrictions
Activity: With assistance
Other Services: Hospice
Activity Restrictions/Additional Instructions:
Wound Care Instructions
buttocks: clean with soap and water, sacral silicone foam change q 2-3 days and prn soilage
frequent repositioning while in bed and sitting
air cushion when sitting
Referrals:
UNKNOWN - PT DOES,NOT KNOW [Family Provider]
Additional Discharge Medication Instructions: Stop all medications that are not directed for comfort, once signed on to hospice at home
Prescriptions:
Continued
docusate sodium [Colace] 100 mg Capsule
100 mg PO BID PRN (Reason: constipation)
loratadine [Claritin] 10 mg Tablet
10 mg PO DAILY
venetoclax 100 mg Tablet
400 mg PO DIRECTED
Patient Comments:
09/03/2024, per pt., he takes this med. with his 7-day Vidaza infusion and for 7 days after it every 28 days; however, there is no future doses ordered of Vidaza per OID. Last Vidaza dose 08/21/24
levofloxacin 500 mg tablet
500 mg PO DAILY
Patient Comments:
09/03/2024, filled on 08/02/2024 for 30-day supply.
ergocalciferol (vitamin D2) 1,250 mcg (50,000 unit) capsule
1,250 mcg PO WE@0800
acyclovir 400 mg Tablet
400 mg PO BID Qty: 60 2RF
atorvastatin 40 mg Tablet
40 mg PO HS
acetaminophen [Tylenol Extra Strength] 500 mg Tablet
1,000 mg PO DAILY
cyanocobalamin (vitamin B-12) 1,000 mcg tablet
3,000 mcg PO DAILY
voriconazole 200 mg tablet
200 mg PO Q12H
Patient Comments:
09/03/2024, per pt., last dose is tonight.
midodrine 5 mg Tablet
5 mg PO TID PRN (Reason: SBP<110) Qty: 0 0RF
famotidine 20 mg Tablet
20 mg PO [id number] PRN (Reason: NAUSEA)
sodium chloride 0.65 % Aerosol,Dawson
2 spray INTRANASAL Q4HPRN PRN (Reason: congestion)
Visbiome 112.5 billion cell Capsule
1 cap PO DAILY Qty: 0
allopurinol 300 mg Tablet
300 mg PO DAILY Qty: 0 0RF
Discharge Orders:
Discharge Patient (As Directed); Ordered 09/07/24
Ordered By: Lucius Corey
Discharge Date and Time
Discharge Date/Time: 09/07/24 11:08
Print Language: CZECH
== END 2024-09-07 11:08 | disposition hospice, home (50) | DRG 871 ==
LOC: 2 NORTH 03:42
PROVIDERS: Student in an Organized Health Care Education/Training Program; ADMITTING PHYSICIAN Internal Medicine; ATTENDING PHYSICIAN Internal Medicine; CONSULT PHYSICIAN Internal Medicine Infectious Disease; EMERGENCY PHYSICIAN Student in an Organized Health Care Education/Training Program; OTHER PHYSICIAN Internal Medicine Hematology & Oncology
DX: A41.9 Sepsis, unspecified organism (principal); J18.9 Pneumonia, unspecified organism; C92.00 Acute myeloblastic leukemia, not having achieved remission; D61.818 Other pancytopenia; D84.9 Immunodeficiency, unspecified; I48.91 Unspecified atrial fibrillation; D70.9 Neutropenia, unspecified; R50.81 Fever presenting with conditions classified elsewhere; Z51.5 Encounter for palliative care; Z66 Do not resuscitate; L89.150 Pressure ulcer of sacral region, unstageable; E78.00 Pure hypercholesterolemia, unspecified; M10.9 Gout, unspecified; K21.9 Gastro-esophageal reflux disease without esophagitis
CPT/HCPCS: 71045; 80048; 80053; 81003; 81015; 82962; 83605; 83735; 85025; 85027; 87040; 87147; 87150; 87205; 87502; 87811; 93005; 96374; 99285